=== PATIENT | female | born 1930 | race Caucasian/White ===

== ENCOUNTER 2016-12-01 10:09 | Emergency (ER) | payer MEDICARE, OTHER | END 2016-12-01 12:20 | disposition home or self-care (01) | DX: S00.03XA Contusion of scalp, initial encounter (principal); S93.601A Unspecified sprain of right foot, initial encounter; M54.2 Cervicalgia; Y93.G3 Activity, cooking and baking; W01.198A Fall on same level from slipping, tripping and stumbling with subsequent striking against other object, initial encounter; Y92.000 Kitchen of unspecified non-institutional (private) residence as the place of occurrence of the external cause; Z86.73 Personal history of transient ischemic attack (TIA), and cerebral infarction without residual deficits ==

== ENCOUNTER 2017-03-19 12:48 | Outpatient (CLI) | payer MEDICARE, OTHER | END 2017-03-20 12:49 | disposition critical access hospital (66) | LOC: EMS 12:48 | PROVIDERS: ATTEND Surgery | DX: S01.01XA Laceration without foreign body of scalp, initial encounter (principal); W01.198A Fall on same level from slipping, tripping and stumbling with subsequent striking against other object, initial encounter; Y92.9 Unspecified place or not applicable | CPT/HCPCS: A0425; A0429 ==

== ENCOUNTER 2017-03-19 13:12 | Emergency (ER) | payer MEDICARE, OTHER ==
[2017-03-19] MEDS ORDERED: LIDOCAINE MPF 1%-EPI 1:200000 30 ML VIAL ONE (13:25)
[2017-03-19] MEDS ORDERED: TETANUS/DIPHTHERIA/PERTUSSIS 0.5 ML SYRINGE IM ONE ×2 (13:37→14:26)
--- NOTE | 2017-03-19 13:40 | ED Physician Documentation ---
History of Present Illness - Stated complaint Stated Complaint: FALL/HEAD LAC - Chief complaint Chief Complaint: Trauma Hd/Nk - Additonal information Additional information: hx from pt 86 female per EMS lost balance and fell large R occipital scalp lac ith heavy bleeding no blood thinners no numbness or weakness otherwise well recently Review of Systems Constitutional: denies: Fever Cardiac: denies: Chest pain / pressure, Palpitations Respiratory: denies: Dyspnea GI: denies: Abdominal Pain, Nausea, Vomiting Skin: reports: Laceration (s) Musculoskeletal: reports: Neck pain Neurologic: reports: Headache, Head injury. denies: Focal weakness, Numbness Endocrine: denies: Easy bruising / bleeding Immunocompromised: denies: Immunocompromised PD PAST MEDICAL HISTORY - Past Medical History Cardiovascular: None Respiratory: Tuberculosis Neuro: CVA, TIA Endocrine/Autoimmune: HyPOthyroidism GI: Other : Incontinence HEENT: Other Psych: None Musculoskeletal: Osteoarthritis, Chronic back pain Derm: Other - Past Surgical History General: Appendectomy, Bowel surgery Ortho: Knee replacement HEENT: Cataracts, Tonsil/Adenoidectomy - Present Medications Home Medications: Ambulatory Orders Medication Instructions Recorded Confirmed Levothyroxine [Synthroid] 50 mcg PO QDAC 01/20/14 12/01/16 - Allergies Allergies/Adverse Reactions: Allergies Allergy/AdvReac Type Severity Reaction Status Date / Time Penicillins Allergy swelling Verified 12/01/16 10:21 wheat AdvReac Intermediate malaise, Verified 12/01/16 10:21 headache, dizziness phenyl derivatives Allergy Unknown Uncoded 12/01/16 10:21 - Social History Does the pt smoke?: No Smoking Status: Never smoker Does the pt drink ETOH?: Yes Does the pt have substance abuse?: No - Immunizations Immunizations are current?: Yes - POLST Patient has POLST: No PD ED PE NORMAL - Vitals Vital signs reviewed: Yes - General General: Alert and oriented X 3 - HEENT HEENT: PERRL, Other (2 in deep lac to the galea but not through with large hematoma that had to be evacuated in order to repair) - Neck Neck: No bony TTP (remained collared for imaging 2/2 mechanism) - Cardiac Cardiac: RRR - Respiratory Respiratory: No respiratory distress, Clear bilaterally - Derm Derm: Other (scalp lac) - Neuro Neuro: Alert and oriented X 3, No motor deficit, No sensory deficit Results - Vitals Vitals: Vital Signs - 24 hr 03/19/17 13:15 Temperature 37 C Heart Rate 63 Respiratory 18 Rate Blood Pressure 161/67 H O2 Saturation 100 Oxygen O2 Source [] Nasal cannula O2 Source [] Nasal cannula O2 Source Room air - Rads (name of study) CTH Radiology: See rad report (R parietal subgaleal hematoma) CTCS Radiology: See rad report (no fx, osteopenia, mild focal ant left apical airspace consolidation) Procedures - Laceration (location) scalp Length in cm: 6 Wound type: Linear Neurovascular status: Sensory intact, Motor intact Anesthesia: Lidocaine 1% with epi (10) Wound Preparation: Irrigated copiously NS (2 L), Wound explored, To the base. No: FB identified Skin layer closure: [place] (6) Other: Tetanus booster given Complexity: Simple, Other (after hemaotma removed able to close skin edges) PD MEDICAL DECISION MAKING - ED course ED course: daughter was concerned about episodes of pt "freezing up" wondering if maybe TIAs - ordered blood work etc in addiiton to CT for trauma to eval - but then got records from clinic and athis issue has already been evaluated and addressed - so cancelled abs as todays fall was mechanical by pt and EMS report also CTCS showed L apex abn but pt declines CXR stating she has old findings from prior TB and she is not sick with a cough today and does not want/need a CXR Departure - Departure Disposition: 01 Home, Self Care Clinical Impression: Injury of head and neck Qualifiers: Encounter type: initial encounter Qualified Code(s): S09.90XA - Unspecified injury of head, initial encounter; S19.9XXA - Unspecified injury of neck, initial encounter Scalp laceration Qualifiers: Encounter type: initial encounter Qualified Code(s): S01.01XA - Laceration without foreign body of scalp, initial encounter Condition: Good Instructions: ED Head Injury Closed, ED Laceration Scalp Stitch Or Stap Comments: Keep the pressure dressing on overnight Apply ice for 20 min every 4 hr for the next 24 hr May take tylenol for the pain After the dressing is removed tomorrow it is fine to shower Please apply antibiotic ointment to the laceration twice a day [place] come out in 14 days - your PMD can do that or you can come back to the ER Please return for any other concerns, falls, or concerns for infection - even though I irrigated the wound with 2 L of fluids there is always a chance of infection so if you notice excessive redness or swelling or drainage, please come back for a wound check And please follow up with your PMD to recheck your blood pressure - it was elevated today
--- NOTE | 2017-03-19 14:38 | CT Preliminary Report ---
Exam: CT Head W/O IMPRESSION: 1. Generalized age-related cortical atrophic changes without evidence of acute intracranial abnormali ty. 2. Right parietal scalp subgaleal hematoma. [facility] SITE ID: [id number]
--- NOTE | 2017-03-19 14:41 | CT Report ---
EXAM: CT HEAD EXAM DATE: 03/19/2017 02:28 PM. CLINICAL HISTORY: Head injury right occipital lac and hematoma. COMPARISON: 12/01/2016. TECHNIQUE: Multiaxial CT images were obtained from the foramen magnum to the vertex. IV contrast: Non e. Reformats: Coronal. In accordance with CT protocol optimization, one or more of the following dose reduction techniques w ere utilized for this exam: automated exposure control, adjustment of mA and/or KV based on patient s ize, or use of iterative reconstructive technique. FINDINGS: Parenchyma: No intraparenchymal hemorrhage. No evidence of mass, midline shift, or CT findings of acu te infarction. Grijalva-white differentiation is distinct. Extraaxial Spaces: Normal for age. No subdural or epidural collections identified. Ventricles: The ventricles and cortical sulci are enlarged, consistent with age-related tissue loss. Sinuses: Imaged paranasal sinuses, orbits, and mastoids show no significant abnormality. Bones: No evidence of fracture or calvarial defect. Focal 4.6 x 1 cm right parietal scalp subgaleal h ematoma with associated small laceration is evident. Other: Diffuse chronic microangiopathic white matter changes are evident. IMPRESSION: 1. Generalized age-related cortical atrophic changes without evidence of acute intracranial abnormali ty. 2. Right parietal scalp subgaleal hematoma. [facility] Referring Provider Line: [phone] SITE ID: [id number]
--- NOTE | 2017-03-19 14:42 | CT Preliminary Report ---
Exam: CT Cervical Spine W/O IMPRESSION: 1. Osteopenia without evidence for acute fracture or dislocation of the cervical spine. 2. Multilevel degenerative changes in the cervical spine as described above. 3. Mild focal anterior left apical airspace consolidation is evident that is of unclear etiology, pos sibly infection or inflammation. [facility] SITE ID: [id number]
--- NOTE | 2017-03-19 14:44 | CT Report ---
EXAM: CT CERVICAL SPINE WITHOUT CONTRAST DATE: 03/19/2017 02:27 PM HISTORY: Fall and neck pain COMPARISONS: 12/01/2016. TECHNIQUE: Thin-section axial images were acquired of the cervical spine without contrast. Post-proce ssing: Coronal and sagittal reformats. Other: None. In accordance with CT protocol optimization, one or more of the following dose reduction techniques w ere utilized for this exam: automated exposure control, adjustment of mA and/or KV based on patient s ize, or use of iterative reconstructive technique. FINDINGS: Alignment: Normal. No scoliosis or spondylolisthesis. Bones: Osteopenia is noted. No acute fracture lines are seen. No abnormal osseous lesions. Interspace Levels/Facets: C1-C2: Degenerative narrowing at the C1-C2 interspace. C2-C3: Unremarkable. C3-C4: Unremarkable. C4-C5: Moderate to severe disk height loss with disk osteophytes. Moderate to severe bilateral neurof oraminal stenosis secondary to facet and uncovertebral hypertrophy. C5-C6: Moderate to severe disk height loss. Moderate to severe bilateral neuroforaminal stenosis seco ndary to facet and uncovertebral hypertrophy. C6-C7: Moderate to severe disk height loss. Mild to moderate bilateral neuroforaminal stenosis second quique to facet and uncovertebral hypertrophy. C7-T1: Mild disk height loss. No significant neuroforaminal stenosis. Musculature: Normal. No fatty atrophy. Other: The paravertebral and prevertebral soft tissues are normal. Biapical lung scarring is noted. T iny focal left anterior apical consolidation.. IMPRESSION: 1. Osteopenia without evidence for acute fracture or dislocation of the cervical spine. 2. Multilevel degenerative changes in the cervical spine as described above. 3. Mild focal anterior left apical airspace consolidation is evident that is of unclear etiology, pos sibly infection or inflammation. [facility] Referring Provider Line: [phone] SITE ID: [id number]
[2017-03-19 15:28] VITALS: BP 158/87
== END 2017-03-19 15:28 | disposition home or self-care (01) ==
LOC: EDUNIT# → ED 13:12
DX: S01.01XA Laceration without foreign body of scalp, initial encounter (principal); S00.03XA Contusion of scalp, initial encounter; S09.90XA Unspecified injury of head, initial encounter; W01.0XXA Fall on same level from slipping, tripping and stumbling without subsequent striking against object, initial encounter; Z23 Encounter for immunization; R03.0 Elevated blood-pressure reading, without diagnosis of hypertension; E03.9 Hypothyroidism, unspecified; Z86.73 Personal history of transient ischemic attack (TIA), and cerebral infarction without residual deficits; Z86.11 Personal history of tuberculosis
CPT/HCPCS: 12032; 70450; 72125; 80048; 85025; 90471; 99283; 99284

== ENCOUNTER 2017-08-12 07:36 | Outpatient (CLI) | payer MEDICARE, OTHER ==
[2017-08-12 08:05] LABS: CREATININE 0.9 mg/dL (0.4-1.0)
[2017-08-12] MEDS ORDERED: IOPAMIDOL-300 100 ML VIAL IVP ONE (09:01)
[2017-08-12] MEDS ORDERED: IOPAMIDOL-300 100 ML VIAL ONE (09:05)
--- NOTE | 2017-08-12 13:06 | CT Report ---
CT CHEST WITH CONTRAST: 08/12/2017 CLINICAL INDICATION: Shortness of breath, cough. TECHNIQUE: Axial CT images of the chest were obtained with 80 mL Isovue-300 intravenously. In accordance with CT protocol optimization, one or more of the following dose reduction techniques w ere utilized for this exam: automated exposure control, adjustment of mA and/or KV based on patient size, or use of iterative reconstructive technique. COMPARISON: Previous CT of the abdomen of 09/07/2015. FINDINGS: The heart and great vessels demonstrate mild atherosclerotic calcification. No hilar or m ediastinal lymphadenopathy is present. The lungs demonstrate minimal dependent atelectasis. No pulm onary nodule or mass lesion is present. No focal infiltrate, effusion, or pneumothorax is seen. Beard ited evaluation of upper abdominal structures demonstrates the 9-cm hemangioma in the posterior right lobe of the liver. Osseous structures demonstrate degenerative changes. IMPRESSION: NO EVIDENT ETIOLOGY FOR PATIENT'S COUGH AND SHORTNESS OF BREATH. STABLE HEPATIC HEMANGI DOANLD. JOB #: [id number] EXT JOB #:[id number]
== END 2017-08-12 07:37 | disposition home or self-care (01) ==
LOC: LAB 07:36 → DI 07:37
PROVIDERS: ATTEND Nurse Practitioner Family
DX: R06.02 Shortness of breath (principal); R05 Cough; D18.03 Hemangioma of intra-abdominal structures
CPT/HCPCS: 36415; 71260; 82565; Q9967

== ENCOUNTER 2017-10-06 08:46 | Outpatient (CLI) | payer MEDICARE, OTHER ==
--- NOTE | 2017-10-07 11:33 | XRAY Report ---
DATE OF SERVICE: 10/06/2017 TWO VIEW CHEST: 10/06/2017. COMPARISON: Chest CT of 08/12/2017. INDICATION: Cough. TECHNIQUE: Two views of the chest. FINDINGS: Clear lungs. No pneumothorax or pleural effusion. Mediastinum unremarkable. IMPRESSION: NO EVIDENCE OF ACUTE THORACIC PROCESS. TD: 10/06/2017 11:43 [facility]
== END 2017-10-06 08:47 | disposition home or self-care (01) ==
LOC: DI.S 08:46
PROVIDERS: ATTEND Nurse Practitioner Family
DX: R05 Cough (principal); R06.02 Shortness of breath
CPT/HCPCS: 71046

== ENCOUNTER 2017-10-17 06:53 | Outpatient (CLI) | payer MEDICARE, OTHER | END 2017-10-17 06:54 | disposition critical access hospital (66) | LOC: EMS 06:53 | PROVIDERS: ATTEND Surgery | DX: M25.532 Pain in left wrist (principal); W18.30XA Fall on same level, unspecified, initial encounter; Y93.K9 Activity, other involving animal care; Y92.008 Other place in unspecified non-institutional (private) residence as the place of occurrence of the external cause | CPT/HCPCS: A0425; A0429 ==

== ENCOUNTER 2017-10-17 07:19 | Emergency (ER) | payer MEDICARE, OTHER ==
--- NOTE | 2017-10-17 07:35 | ED Physician Documentation ---
PD HPI UPPER EXT INJURY - Stated complaint Stated Complaint: GLF - Chief complaint Chief Complaint: General - History obtained from History obtained from: Patient, EMS - History of Present Illness Location: Left, Wrist Type of injury: Fall (she says she bent over to give her dog some food and she lost balance and fell backward, catching her fall with the left wrist. She had slipped getting out of bed and landed on her buttock yesterday with abrasion to gluteal area. Denies other falls nor feeling off balance per se.) Where injury occurred: Home Timing - onset: Today Timing - details: Abrupt onset, Still present Improved by: Rest Worsened by: Moving, Palpating Associated symptoms: Swelling. No: Weakness, Numbness Contributing factors: No: Anticoagulated, Prior ortho surgery Similar symptoms before: Has not had sx before Recently seen: Not recently seen Review of Systems Constitutional: denies: Fever, Chills Nose: denies: Rhinorrhea / runny nose, Congestion Throat: denies: Sore throat Cardiac: denies: Chest pain / pressure, Palpitations Respiratory: denies: Dyspnea, Cough GI: denies: Abdominal Pain, Nausea, Vomiting, Diarrhea : denies: Dysuria, Frequency Neurologic: denies: Focal weakness, Numbness, Syncope, Altered mental status, Headache, Head injury Endocrine: denies: Weight loss Immunocompromised: denies: Immunocompromised PD PAST MEDICAL HISTORY - Past Medical History Past Medical History: Yes Cardiovascular: None Respiratory: Tuberculosis Neuro: CVA, TIA Endocrine/Autoimmune: HyPOthyroidism GI: Other : Incontinence HEENT: Other Psych: None Musculoskeletal: Osteoarthritis, Chronic back pain Derm: Other - Past Surgical History Past Surgical History: Yes General: Appendectomy, Bowel surgery Ortho: Knee replacement HEENT: Cataracts, Tonsil/Adenoidectomy - Present Medications Home Medications: Ambulatory Orders Medication Instructions Recorded Confirmed Levothyroxine [Synthroid] 50 mcg PO QDAC 01/20/14 10/17/17 Antidepressant 10/17/17 - Allergies Allergies/Adverse Reactions: Allergies Allergy/AdvReac Type Severity Reaction Status Date / Time Penicillins Allergy swelling Verified 12/01/16 10:21 wheat AdvReac Intermediate malaise, Verified 12/01/16 10:21 headache, dizziness phenyl derivatives Allergy Unknown Uncoded 12/01/16 10:21 - Social History Does the pt smoke?: No Smoking Status: Never smoker Does the pt drink ETOH?: Yes Does the pt have substance abuse?: No - Immunizations Immunizations are current?: Yes - POLST Patient has POLST: No PD ED PE NORMAL - Vitals Vital signs reviewed: Yes - General General: Alert and oriented X 3, No acute distress, Well developed/nourished - HEENT HEENT: Atraumatic - Neck Neck: Supple, no meningeal sign, No adenopathy - Cardiac Cardiac: RRR, No murmur - Respiratory Respiratory: Clear bilaterally, Other (no chestwall tenderness) - Abdomen Abdomen: Soft, Non tender - Rectal Rectal: Deferred, Other (left gluteal area with several abrasions without bleeding. No redness/purulence noted. ) - Back Back: No spinal TTP - Derm Derm: Normal color, Warm and dry - Extremities Extremities: Other (left wrist with tenderness and swelling. No gross defromity. Good color and cap refill in fingers. ) - Neuro Neuro: Alert and oriented X 3, No motor deficit, No sensory deficit, Normal speech Results - Vitals Vitals: Vital Signs - 24 hr 10/17/17 10/17/17 07:20 09:42 Temperature 36.1 C L 36.3 C L Heart Rate 72 73 Respiratory 17 18 Rate Blood Pressure 144/71 H 138/68 H O2 Saturation 100 100 Oxygen O2 Source [With Activity] Nasal cannula O2 Source [Without Activity] Nasal cannula O2 Source Room air - Rads (name of study) left wrist Radiology: Prelim report reviewed, EMP read contemporaneously (distal radius fracture nondisplaced. Ulnar styloid as well. ) Procedures - Splint (location) left wrist Splint applied by: Tech Type of splint: Fiberglass, Sugar tong Other: Patient tolerated well, No complications, Neurovascular intact, Good alignment, Sling provided PD MEDICAL DECISION MAKING - ED course Complexity details: reviewed results, considered differential, d/w patient Departure - Departure Disposition: 01 Home, Self Care Clinical Impression: Fall from slip, trip, or stumble Qualifiers: Encounter type: initial encounter Qualified Code(s): W01.0XXA - Fall on same level from slipping, tripping and stumbling without subsequent striking against object, initial encounter Abrasion of buttock Qualifiers: Encounter type: initial encounter Qualified Code(s): S30.810A - Abrasion of lower back and pelvis, initial encounter Wrist fracture, left Qualifiers: Encounter type: initial encounter Fracture type: closed Qualified Code(s): S62.102A - Fracture of unspecified carpal bone, left wrist, initial encounter for closed fracture Condition: Stable Record reviewed to determine appropriate education?: Yes Instructions: ED Fx Colles Wrist No Redu Requ Follow-Up: Steve Hanson MD [Provider Admit Priv/Credential] - Mignon Clay ARNP [Primary Care Provider] - Comments: Keep the splint on and keep it clean and dry. Call the orthopedic office Wednesday or Wednesday to set up an appointment for later in the week for changing the splint to a cast and recheck the fracture. Use Tylenol 650 mg 3 times a day for the next week for the pain. Keep the arm elevated to reduce swelling. Use the sling as needed for comfort. For the abrasions on the buttock, just use some topical antibiotic ointment or some ointment once or twice a day and they should heal up okay. Discharge Date/Time: 10/17/17 09:42
--- NOTE | 2017-10-17 08:08 | XRAY Report ---
EXAM: LEFT WRIST RADIOGRAPHY EXAM DATE: 10/17/2017 07:55 AM. CLINICAL HISTORY: Fell this morning; bent over and lost balance. COMPARISON: None. TECHNIQUE: 3 views. FINDINGS: Bones: There is diffuse moderate to severe osteopenic appearance. Mild comminuted intra-articular fra cture with minimal displacement in the distal radius and transverse fracture in the base of the ulnar styloid process visualized. Joints: There is moderate diminishment of joint space in the radiocarpal joint, radial side intercarp al joints and first carpometacarpal joint. No subluxations. Soft Tissues: No radiopaque foreign body. IMPRESSION: 1. Mild comminuted intra-articular fracture with minimal displacement in the distal radius and transv erse fracture in the base of the ulnar styloid process. 2. Moderate osteoarthritis of the left wrist; negative for dislocation or subluxation. [facility] Referring Provider Line: [phone] SITE ID: [id number]
--- NOTE | 2017-10-17 08:08 | XRAY Preliminary Report ---
Exam: XR WRIST 4 VIEW LT IMPRESSION: 1. Mild comminuted intra-articular fracture with minimal displacement in the distal radius and transv erse fracture in the base of the ulnar styloid process. 2. Moderate osteoarthritis of the left wrist; negative for dislocation or subluxation. [facility] SITE ID: [id number]
[2017-10-17 09:44] VITALS: BP 138/68
== END 2017-10-17 09:42 | disposition home or self-care (01) ==
LOC: EDUNIT# → ED 07:19
DX: S52.572A Other intraarticular fracture of lower end of left radius, initial encounter for closed fracture (principal); S52.612A Displaced fracture of left ulna styloid process, initial encounter for closed fracture; W01.0XXA Fall on same level from slipping, tripping and stumbling without subsequent striking against object, initial encounter; Y92.019 Unspecified place in single-family (private) house as the place of occurrence of the external cause; S30.810A Abrasion of lower back and pelvis, initial encounter; W06.XXXA Fall from bed, initial encounter; Y92.013 Bedroom of single-family (private) house as the place of occurrence of the external cause; E03.9 Hypothyroidism, unspecified; M19.90 Unspecified osteoarthritis, unspecified site
CPT/HCPCS: 29105; 99283; 99284

== ENCOUNTER 2017-11-13 14:58 | Emergency (ER) | payer MEDICARE, OTHER ==
[2017-11-13 15:11] VITALS: BP 147/82
--- NOTE | 2017-11-13 16:00 | ED Physician Documentation ---
History of Present Illness - Stated complaint Stated Complaint: L THUMB SWELLING - Chief complaint Chief Complaint: Ext Problem - History obtained from History obtained from: Patient - History of Present Illness Timing: Today Pain level max: 4 Pain level now: 3 Improved by: nothing Worsened by: nothing - Additonal information Additional information: Patient is an 79-year-old female who presents to the emergency department complaint of redness and swelling to the left thumb after a distal radius and ulna fracture approximately 4 weeks ago. Review of Systems Constitutional: denies: Fever, Chills Respiratory: denies: Cough GI: denies: Nausea, Vomiting, Diarrhea Skin: denies: Rash Musculoskeletal: denies: Neck pain, Back pain Neurologic: denies: Headache PD PAST MEDICAL HISTORY - Past Medical History Cardiovascular: None Respiratory: Tuberculosis Neuro: CVA, TIA Endocrine/Autoimmune: HyPOthyroidism GI: Other : Incontinence HEENT: Other Psych: None Musculoskeletal: Osteoarthritis, Chronic back pain Derm: Other - Past Surgical History Past Surgical History: Yes General: Appendectomy, Bowel surgery Ortho: Knee replacement HEENT: Cataracts, Tonsil/Adenoidectomy - Present Medications Home Medications: Ambulatory Orders Medication Instructions Recorded Confirmed Levothyroxine [Synthroid] 50 mcg PO QDAC 01/20/14 10/17/17 Antidepressant 10/17/17 - Allergies Allergies/Adverse Reactions: Allergies Allergy/AdvReac Type Severity Reaction Status Date / Time Penicillins Allergy swelling Verified 12/01/16 10:21 wheat AdvReac Intermediate malaise, Verified 12/01/16 10:21 headache, dizziness phenyl derivatives Allergy Unknown Uncoded 12/01/16 10:21 - Social History Does the pt smoke?: No Smoking Status: Never smoker Does the pt drink ETOH?: Yes Does the pt have substance abuse?: No - Immunizations Immunizations are current?: Yes - POLST Patient has POLST: No PD ED PE NORMAL - Vitals Vital signs reviewed: Yes - General General: Alert and oriented X 3, No acute distress - Derm Derm: Warm and dry - Extremities Extremities: Other (L thumb is swollen, normal color. cast in place) - Neuro Neuro: Alert and oriented X 3 - Psych Psych: Normal mood, Normal affect Results - Vitals Vitals: Vital Signs - 24 hr 11/13/17 11/13/17 15:07 16:55 Temperature 36.1 C L Heart Rate 76 76 Respiratory 18 16 Rate Blood Pressure 147/82 H O2 Saturation 96 Oxygen O2 Source [With Activity] Nasal cannula O2 Source [Without Activity] Nasal cannula O2 Source Room air Procedures - General procedure General procedure: cast removed with cast saw. bivalved and removed. tolerated well. no complications. - Splint (location) L forearm Splint applied by: Physician, Nurse Type of splint: Fiberglass, Volar cock up Other: Patient tolerated well, No complications, Neurovascular intact PD MEDICAL DECISION MAKING - ED course Complexity details: reviewed old records, re-evaluated patient, considered differential, d/w patient ED course: Patient is an 87-year-old female who presents to the emergency department with what appears to be swelling from a cast that had become too tight. The cast was bivalved and removed. Tolerated well. Swelling decreased and feels much better. No evidence of cellulitis, infection or septic joint. Placed back in a volar splint and will follow up with orthopedics this week as scheduled. Patient counseled regarding signs and symptoms for which I believe and urgent re -evaluation would be necessary. Patient with good understanding of and agreement to plan and is comfortable going home at this time This document was made in part using voice recognition software. While efforts are made to proofread this document, sound alike and grammatical errors may occur. Departure - Departure Disposition: 01 Home, Self Care Clinical Impression: Distal radius fracture, left Qualifiers: Encounter type: subsequent encounter Fracture type: closed Fracture morphology : other intra-articular Fracture healing: with routine healing Qualified Code(s) : S52.572D - Other intraarticular fracture of lower end of left radius, subsequent encounter for closed fracture with routine healing Condition: Good Instructions: ED Fx Upper Ext Follow-Up: Steve Hanson MD [Provider Admit Priv/Credential] - Within 3 Days Comments: Your cast appeared to be too tight tonight and we replaced it with a splint. Follow up with Dr. Hanson for further evaluation on Wednesday or wednesday. Return sooner if you worsen. Discharge Date/Time: 11/13/17 16:56
== END 2017-11-13 16:56 | disposition home or self-care (01) ==
LOC: ED 14:58
DX: S52.572D Other intraarticular fracture of lower end of left radius, subsequent encounter for closed fracture with routine healing (principal)
CPT/HCPCS: 29125; 99282

== ENCOUNTER 2018-05-31 10:31 | Outpatient (CLI) | payer MEDICARE, OTHER ==
--- NOTE | 2018-05-31 11:25 | XRAY Report ---
Reason: RIGHT SHOULDER DECREASED RANGE OF MOTION Procedure Date: 05/31/2018 Accession Number: [id number] / [id number] Procedure: XR - Shoulder 3 View RT CPT Code: FULL RESULT: EXAM: RIGHT SHOULDER RADIOGRAPHY EXAM DATE: 05/31/2018 10:55 AM. CLINICAL HISTORY: Fall 2 days ago. Right shoulder decreased range of motion. COMPARISON: None. TECHNIQUE: 3 views. FINDINGS: Bones: No fractures or bone lesions. Bones appear osteopenic. Joints: Mild acromioclavicular and glenohumeral joint DJD. Soft Tissues: Unremarkable. IMPRESSION: 1. No acute osseous abnormality. 2. Mild DJD. Osteopenia. [facility]
== END 2018-05-31 10:32 | disposition home or self-care (01) ==
LOC: DI 10:31
PROVIDERS: ATTEND Nurse Practitioner Family
DX: M19.011 Primary osteoarthritis, right shoulder (principal); M85.811 Other specified disorders of bone density and structure, right shoulder

== ENCOUNTER 2018-06-23 11:37 | Outpatient (CLI) | payer MEDICARE, OTHER ==
[2018-06-23 12:41] LABS: BASOPHILS % (AUTO) 0.5 %; EOSINOPHILS % (AUTO) 0.3 %; LYMPHOCYTES # (AUTO) 2.2 10^3/uL (1.5-3.5); LYMPHOCYTES % (AUTO) 28.2 %; MEAN CORPUSCULAR HEMOGLOBIN 31.6 pg (27.0-31.0); MEAN CORPUSCULAR HGB CONC 34.1 g/dL (32.0-36.0); MEAN CORPUSCULAR VOLUME 92.9 fL (81.0-99.0); MEAN PLATELET VOLUME 8.6 fL (7.9-10.8); MONOCYTES # (AUTO) 1.4 10^3/uL (0.0-1.0); NEUTROPHILS # (AUTO) 4.3 10^3/uL (1.5-6.6); PLT - PLATELET COUNT 169 10^3/uL (130-450); RED BLOOD COUNT 4.43 10^6/uL (4.20-5.40); RED CELL DISTRIBUTION WIDTH 13.5 % (12.0-15.0)
[2018-06-23 12:52] LABS: ALBUMIN 4.6 g/dL (3.2-5.5); BILIRUBIN,TOTAL 0.9 mg/dL (0.2-1.0); CALCIUM 9.4 mg/dL (8.5-10.3); CREATININE 0.9 mg/dL (0.4-1.0); TOTAL PROTEIN 6.9 g/dL (6.7-8.2)
[2018-06-23 12:53] LABS: HB2 TOTAL 15.3 g/dL; HEMOGLOBIN A1C 0.54 g/dL; HEMOGLOBIN A1C % 5.4 % (4.6-6.2)
[2018-06-23 15:40] LABS: THYROID STIMULATING HORMONE 2.03 uIU/mL (0.34-5.60)
[2018-06-23 15:42] LABS: FREE T4 (FREE THYROXINE) 0.96 ng/dL (0.58-1.64)
[2018-06-24 13:07] LABS: HEPATITIS C ANTIBODY NON-REACTIVE (NON-REACTIVE)
[2018-06-24 14:22] LABS: HIV AG/AB 4TH GEN NON-REACTIVE (NON-REACTIVE)
== END 2018-06-23 11:38 | disposition home or self-care (01) ==
LOC: LAB 11:37
PROVIDERS: ATTEND Nurse Practitioner Family
DX: R05 Cough (principal); R35.1 Nocturia; R61 Generalized hyperhidrosis; Z86.11 Personal history of tuberculosis
CPT/HCPCS: 36415; 80053; 81599; 83036; 84439; 84443; 85025; 86803; G0475; 81001; 86592; 87389

== ENCOUNTER 2018-06-24 11:57 | Outpatient (CLI) | payer MEDICARE, OTHER ==
--- NOTE | 2018-06-24 13:58 | XRAY Report ---
Reason: COUGH Procedure Date: 06/24/2018 Accession Number: [id number] / [id number] Procedure: XR - Chest 2 View X-Ray CPT Code: 21365 FULL RESULT: EXAM: CHEST RADIOGRAPHY EXAM DATE: 06/24/2018 12:24 PM. CLINICAL HISTORY: COUGH. COMPARISON: 07/08/2015. TECHNIQUE: 2 views. FINDINGS: Lungs/Pleura: Mildly hyperexpanded, but clear. No effusion or pneumothorax. Mediastinum: Heart and mediastinal contours are unremarkable. Upper lobe vessels not distended. Other: Mild scoliosis with degenerative changes. IMPRESSION: No acute disease. [facility]
== END 2018-06-24 11:58 | disposition home or self-care (01) ==
LOC: DI 11:57
PROVIDERS: ATTEND Nurse Practitioner Family
DX: R05 Cough (principal)
CPT/HCPCS: 71046

== ENCOUNTER 2018-07-12 15:59 | Outpatient (CLI) | payer MEDICARE, OTHER | END 2018-07-12 16:00 | disposition critical access hospital (66) | LOC: EMS 15:59 | PROVIDERS: ATTEND Surgery | DX: S09.90XA Unspecified injury of head, initial encounter (principal); R07.81 Pleurodynia; W01.190A Fall on same level from slipping, tripping and stumbling with subsequent striking against furniture, initial encounter; Y92.009 Unspecified place in unspecified non-institutional (private) residence as the place of occurrence of the external cause | CPT/HCPCS: A0425; A0429 ==

== ENCOUNTER 2018-07-12 16:24 | Emergency (ER) | payer MEDICARE, OTHER ==
[2018-07-12] MEDS ORDERED: HYDROcod/ACETAM 5/325 MG TABLET PO STA (16:30)
--- NOTE | 2018-07-12 16:32 | ED Physician Documentation ---
PD HPI Fall - Stated complaint Stated Complaint: GLF - History obtained from History obtained from: Patient - History of Present Illness Mechanism of injury: Tripped (On a carpet today. Hit back of head and hurt left posterior chest wall. No LOC. Hurts a lot to breathe.) Fall distance: Standing position Where injury occurred: Home Timing - onset: Today Review of Systems Constitutional: reports: Reviewed and negative Cardiac: reports: Reviewed and negative Respiratory: reports: Reviewed and negative PD PAST MEDICAL HISTORY - Past Medical History Cardiovascular: None Respiratory: Tuberculosis Endocrine/Autoimmune: HyPOthyroidism GI: Other : Incontinence HEENT: Other Psych: None Musculoskeletal: Osteoarthritis, Chronic back pain Derm: Other - Past Surgical History Past Surgical History: Yes General: Appendectomy, Bowel surgery Ortho: Knee replacement HEENT: Cataracts, Tonsil/Adenoidectomy - Present Medications Home Medications: Ambulatory Orders Medication Instructions Recorded Confirmed Levothyroxine [Synthroid] 50 mcg PO QDAC 01/20/14 10/17/17 Antidepressant 10/17/17 - Allergies Allergies/Adverse Reactions: Allergies Allergy/AdvReac Type Severity Reaction Status Date / Time Penicillins Allergy Intermediate swelling Verified 07/12/18 16:53 wheat AdvReac Intermediate malaise, Verified 07/12/18 16:54 headache, dizziness phenyl derivatives Allergy Unknown Uncoded 07/12/18 16:54 - Social History Does the pt smoke?: No Smoking Status: Never smoker Does the pt drink ETOH?: Yes Does the pt have substance abuse?: No - Immunizations Immunizations are current?: Yes - POLST Patient has POLST: No PD ED PE NORMAL - Vitals Vital signs reviewed: Yes - General General: Alert and oriented X 3, No acute distress - HEENT HEENT: PERRL, EOMI, Other (Small hematoma left occiput) - Neck Neck: Supple, no meningeal sign, No bony TTP - Cardiac Cardiac: RRR, No murmur - Respiratory Respiratory: No respiratory distress, Clear bilaterally, Other (TTP about Rib 8- 10 post ax line on left.) - Abdomen Abdomen: Non tender - Back Back: No spinal TTP - Derm Derm: Normal color, Warm and dry - Extremities Extremities: No edema, No calf tenderness / cord - Neuro Neuro: Alert and oriented X 3, vocational rehab consultant 2-12 intact Eye Opening: Spontaneous Motor: Obeys Commands Verbal: Oriented GCS Score: 15 Results - Vitals Vitals: Oxygen O2 Source [With Activity] Nasal cannula O2 Source [Without Activity] Nasal cannula O2 Source Room air - Rads (name of study) Ct CHest Radiology: EMP read contemporaneously (Acute left sixth through 10th rib fractures with numbers 6 8 and 9 in multiple locations representing a flail chest.) Ct Head and Cspine Radiology: EMP read contemporaneously (NAD) PD MEDICAL DECISION MAKING - ED course ED course: 87YO WOMAN WITH FALL BACKWARD, HITTING LEFT POSTERIOR CHEST WALL ON TABLE. fOUND TO HAVE 6 POSTERIOR RIB FRXS AND FLAIR CHEST. Given multiple rib fractures, advanced age and flail chest decision to send her to [facility] was made and she was accepted by Dr. Valentina Dalton at 6:55 PM and cobras were completed. With the patient's permission I did speak with her daughter in [place], Albina Farias, her phone is [phone]. Dr. Dalton did ask me to perform an abdominal CT to rule out intra-abdominal injury, this was done, she is a stable hepatic hemangioma, no acute findings. - Sepsis Event Vital Signs: Oxygen O2 Source [With Activity] Nasal cannula O2 Source [Without Activity] Nasal cannula O2 Source Room air Departure - Departure Disposition: 02 Transfer Acute Care Hosp Clinical Impression: Flail chest Condition: Serious Discharge Date/Time: 07/12/18 19:57
--- NOTE | 2018-07-12 17:29 | CT Report ---
Reason: fall, head and L post chest inj Procedure Date: 07/12/2018 Accession Number: [id number] / [id number] Procedure: CT - Head W/O CPT Code: FULL RESULT: EXAM: CT HEAD EXAM DATE: 07/12/2018 05:12 PM. CLINICAL HISTORY: Fall, head and L post chest inj. COMPARISON: CERVICAL SPINE W/O 03/19/2017 2:13 PM HEAD W/O 12/01/2016 11:04 AM. TECHNIQUE: Multiaxial CT images were obtained from the foramen magnum to the vertex. Reformats: Sagittal and coronal. IV contrast: None. In accordance with CT protocol optimization, one or more of the following dose reduction techniques were utilized for this exam: automated exposure control, adjustment of mA and/or KV based on patient size, or use of iterative reconstructive technique. FINDINGS: Parenchyma: No acute intraparenchymal hemorrhage. No evidence of mass or midline shift. Grijalva-white differentiation is distinct. Nonspecific hypodense changes to the periventricular white matter, which can be seen with chronic small vessel ischemic disease. Redemonstrated nonspecific mild hyperdense changes to the medial thalami bilaterally. Extraaxial Spaces: No subdural or epidural collections identified. Ventricles: Normal in size and position. Sinuses and Orbits: Imaged paranasal sinuses, orbits, and mastoids show no significant abnormality. Bones: No evidence of fracture or calvarial defect. Other: Small focus of soft tissue swelling overlying the left occipital bone. IMPRESSION: No acute intracranial findings. An acute infarct may not be visible by CT. Follow-up examinations recommended as clinically indicated. RADIA
--- NOTE | 2018-07-12 17:34 | CT Report ---
Reason: fall, head and L post chest inj Procedure Date: 07/12/2018 Accession Number: [id number] / [id number] Procedure: CT - Cervical Spine W/O CPT Code: FULL RESULT: EXAM: CT CERVICAL SPINE WITHOUT CONTRAST DATE: 07/12/2018 05:12 PM. HISTORY: Fall, head and L post chest inj. COMPARISONS: CERVICAL SPINE W/O 03/19/2017 2:13 PM. TECHNIQUE: Thin-section axial images were acquired of the cervical spine without contrast. Post-processing: Coronal and sagittal reformats. Other: None. In accordance with CT protocol optimization, one or more of the following dose reduction techniques were utilized for this exam: automated exposure control, adjustment of mA and/or KV based on patient size, or use of iterative reconstructive technique. FINDINGS: Alignment: No scoliosis or spondylolisthesis. Bones/discs: No acute fracture, subluxation, or compression deformity. Diffuse osteopenia. Redemonstration of moderate to severe multilevel degenerative joint and disk disease, which is essentially unchanged from the prior CT from March 2017. Musculature: Unremarkable. Other: Trace fluid in the left mastoid air cells, nonspecific. The paravertebral and prevertebral soft tissues are unremarkable. IMPRESSION: Osteopenia. No acute fracture, subluxation, or compression deformity visualized. RADIA
--- NOTE | 2018-07-12 17:42 | CT Report ---
Reason: fall, head and L post chest inj Procedure Date: 07/12/2018 Accession Number: [id number] / [id number] Procedure: CT - Chest W/O CPT Code: FULL RESULT: EXAM: CT CHEST EXAM DATE: 07/12/2018 05:12 PM. CLINICAL HISTORY: Fall, head and L post chest inj. COMPARISONS: CHEST W/ 08/12/2017 8:47 AM. TECHNIQUE: Routine helical CT imaging was performed through the chest. IV contrast: None. Reconstructions: Coronal and sagittal. In accordance with CT protocol optimization, one or more of the following dose reduction techniques were utilized for this exam: automated exposure control, adjustment of mA and/or KV based on patient size, or use of iterative reconstructive technique. FINDINGS: Lungs/Pleura: No consolidation or pneumothorax. Small left pleural effusion. Mild patchy atelectasis in the left lung base. Redemonstrated nodular scarring in the lung apices without significant change from the prior exam. Mediastinum: Heart size is normal. No pericardial effusion. The thoracic aorta is normal in course and caliber. Calcified plaque scattered throughout the thoracic aorta and coronary arteries. Bones: There are acute fractures of the left 6th through 11th ribs.. The fractures of ribs 6, 8, and 9 are fractured in multiple locations. The sixth, seventh, eighth, and ninth ribs are minimally displaced. There are small locules of gas adjacent to several of these fractures. Visualized Abdomen: Small hiatal hernia. Redemonstrated hemangioma in the posterior right hepatic lobe, which appears unchanged in size from the prior exam. Other: None. IMPRESSION: Multiple acute left-sided rib fractures as described above. No pneumothorax. Small left pleural effusion and mild patchy atelectasis in the left lung base. RADIA
[2018-07-12] MEDS ORDERED: BENZOCAINE/MENTHOL LOZENGE MM STA (17:51)
[2018-07-12] MEDS ORDERED: MORPHINE 2 MG/ML CARPUJECT IVP STA (17:51)
[2018-07-12 18:16] LABS: BASOPHILS # (AUTO) 0.1 10^3/uL (0.0-0.1); BASOPHILS % (AUTO) 0.8 %; EOSINOPHILS % (AUTO) 0.3 %; HGB - HEMOGLOBIN 13.8 g/dL (12.0-16.0); LYMPHOCYTES # (AUTO) 1.5 10^3/uL (1.5-3.5); LYMPHOCYTES % (AUTO) 16.5 %; MEAN CORPUSCULAR HGB CONC 34.3 g/dL (32.0-36.0); MEAN CORPUSCULAR VOLUME 93.2 fL (81.0-99.0); MEAN PLATELET VOLUME 8.2 fL (7.9-10.8); MONOCYTES # (AUTO) 1.5 10^3/uL (0.0-1.0); MONOCYTES % (AUTO) 16.5 %; NEUTROPHILS % (AUTO) 65.9 %; PLT - PLATELET COUNT 176 10^3/uL (130-450); RED BLOOD COUNT 4.31 10^6/uL (4.20-5.40); RED CELL DISTRIBUTION WIDTH 13.6 % (12.0-15.0); WHITE BLOOD COUNT 9.2 x10^3/uL (4.8-10.8)
[2018-07-12] MEDS ORDERED: ONDANSETRON 4 MG/2 ML VIAL IVP STA (18:21)
[2018-07-12 18:27] LABS: ALBUMIN 4.5 g/dL (3.2-5.5); ALBUMIN/GLOBULIN RATIO 1.9 (1.0-2.2); BILIRUBIN,TOTAL 0.8 mg/dL (0.2-1.0); CALCIUM 9.1 mg/dL (8.5-10.3); CREATININE 0.7 mg/dL (0.4-1.0); TOTAL PROTEIN 6.9 g/dL (6.7-8.2)
[2018-07-12 18:31] LABS: PT - PROTHROMBIN TIME 11.5 secs (9.9-12.6)
[2018-07-12] MEDS ORDERED: IOPAMIDOL-300 100 ML VIAL ONE (19:14)
[2018-07-12 19:34] VITALS: BP 174/67
[2018-07-12] MEDS ORDERED: IOPAMIDOL-300 100 ML VIAL IVP ONE (20:04)
--- NOTE | 2018-07-12 20:14 | CT Report ---
Reason: IV only, chest trauma Procedure Date: 07/12/2018 Accession Number: [id number] / [id number] Procedure: CT - Abdomen/Pelvis W/ CPT Code: FULL RESULT: EXAM: CT ABDOMEN AND PELVIS EXAM DATE: 07/12/2018 07:46 PM. CLINICAL HISTORY: IV only, chest trauma. COMPARISONS: 09/07/2015. TECHNIQUE: Routine helical CT imaging was performed through the abdomen and pelvis. IV contrast: 100 cc Isovue-300. Enteric contrast: No. Reconstructions: Coronal and sagittal. In accordance with CT protocol optimization, one or more of the following dose reduction techniques were utilized for this exam: automated exposure control, adjustment of mA and/or KV based on patient size, or use of iterative reconstructive technique. FINDINGS: Lung Bases: Atelectasis in left posterior sulcus. Trace left pleural effusion. Otherwise clear. No pneumothorax. Liver: Large hemangioma similar to previous study. Otherwise unremarkable. Gallbladder/Bile Ducts: Unremarkable. Spleen: Normal. Pancreas: Normal. Adrenal Glands: Normal. Kidneys: Normal. No masses or hydronephrosis. Peritoneal Cavity/Bowel: Normal. No free fluid, free air or adenopathy. No masses or acute inflammatory process. Unremarkable region of the appendix. Pelvic Organs: Decompressed urinary bladder with Flores catheter in place. Otherwise unremarkable. Vasculature: No aneurysms or other significant abnormality. Bones: Fractures of posterior left seventh, eighth, ninth, and 10th ribs. Previous internal fixation of right femoral neck. Degenerative changes. Other: None. IMPRESSION: 1. Multiple left rib fractures. 2. Left basilar atelectasis with trace effusion. 3. Large hepatic hemangioma and other chronic or incidental findings. RADIA
== END 2018-07-12 19:57 | disposition short-term general hospital (02) ==
LOC: EDUNIT# → ED 16:24
DX: S22.5XXA Flail chest, initial encounter for closed fracture (principal); S00.83XA Contusion of other part of head, initial encounter; J90 Pleural effusion, not elsewhere classified; W01.190A Fall on same level from slipping, tripping and stumbling with subsequent striking against furniture, initial encounter; D18.09 Hemangioma of other sites
CPT/HCPCS: 36415; 51702; 70450; 71250; 72125; 74177; 80053; 83690; 85025; 85610; 96374; 99284; A9270; Q9967

== ENCOUNTER 2018-07-12 19:58 | Outpatient (CLI) | payer MEDICARE, OTHER | END 2018-07-12 19:59 | disposition short-term general hospital (02) | LOC: EMS 19:58 | PROVIDERS: ATTEND Surgery | DX: S22.5XXA Flail chest, initial encounter for closed fracture (principal); W01.0XXA Fall on same level from slipping, tripping and stumbling without subsequent striking against object, initial encounter; Y93.01 Activity, walking, marching and hiking | CPT/HCPCS: A0425; A0426 ==

== ENCOUNTER 2018-08-12 15:35 | Outpatient (CLI) | payer MEDICARE, OTHER ==
--- NOTE | 2018-08-12 16:32 | XRAY Report ---
Reason: OTHER ABNORMALITIES OF BREATHING Procedure Date: 08/12/2018 Accession Number: [id number] / [id number] Procedure: XR - Chest 2 View X-Ray CPT Code: 33818 FULL RESULT: EXAM: CHEST RADIOGRAPHY EXAM DATE: 08/12/2018 04:03 PM. CLINICAL HISTORY: OTHER ABNORMALITIES OF BREATHING. COMPARISON: CHEST 2 VIEW 06/24/2018 12:37 PM. TECHNIQUE: 2 views. FINDINGS: Lungs/Pleura: There is a moderate to large left-sided pleural effusion and/or hemothorax obscuring the left lower lung. There is no mediastinal shift. Aerated left upper lung is clear. Right lung is clear. No extra-ventilatory air. Mediastinum: Heart and mediastinal contours are unremarkable. Other: Mildly displaced posterior lateral left rib fractures are noted involving at least ribs 6 through 9. By discussion with PCP, these are known findings from trauma. IMPRESSION: Moderate to large left-sided pleural effusion as described. No pneumothorax. Multiple mildly displaced rib fractures from prior trauma. RADIA The above findings were discussed with Zeyad Ayoub by Dr. Mau Madsen at 16:23 hrs on 08/12/18.
== END 2018-08-12 15:36 | disposition home or self-care (01) ==
LOC: DI 15:35
PROVIDERS: ATTEND Family Medicine
DX: S22.42XD Multiple fractures of ribs, left side, subsequent encounter for fracture with routine healing (principal); J90 Pleural effusion, not elsewhere classified
CPT/HCPCS: 71046

== ENCOUNTER 2018-08-14 16:22 | Outpatient (CLI) | payer MEDICARE, OTHER | END 2018-08-14 16:23 | disposition critical access hospital (66) | LOC: EMS 16:22 | PROVIDERS: ATTEND Surgery | DX: R06.02 Shortness of breath (principal); M54.9 Dorsalgia, unspecified | CPT/HCPCS: A0425; A0427 ==

== ENCOUNTER 2018-08-14 16:28 | Inpatient (IN) | payer MEDICARE, OTHER ==
--- NOTE | 2018-08-14 17:09 | ED Physician Documentation ---
PD HPI TRUNK INJURY - Stated complaint Stated Complaint: CP - Chief complaint Chief Complaint: Resp - History obtained from History obtained from: Patient, Family - History of Present Illness Location: Left chest (She has been having pain in her chest due to prior rib fractures over a month ago. She was in [facility] due to the multiple rib fractures and then was out to [facility] for rehab from that. She has been there for a month or so. She has had treatment for the pain of the ribs and that has been improving. She has had a left pleural effusion that has slightly increased in size over the week or 2. She was seen by Dr. Ayoub at [facility] and has scheduled a thoracentesis to help with her symptoms of dyspnea and pain on the left side. It scheduled for this coming week. However she has had increased dyspnea and some pain into her back the last day or 2. She is referred to the ER for further evaluation. She has not had fever. She has had a little bit of a cough. She has not had any leg swelling.), Left back. No: Upper abdomen Type of injury: Fall (initial injury was from fall, but no new injury.) Timing - onset: How many days ago (has had increased dyspnea as well as new pain in left back the past 2-3 days.) Timing - duration: Days Timing - details: Gradual onset, Still present Quality: Pain, Aching Improved by: No: Rest Worsened by: Moving, Other (deep breathing). No: Palpating Associated symtptoms: Weakness. No: Numbness, Tingling, Feel faint Contributing factors: No: Anticoagulated Recently seen: Emergency Dept, Admitted Review of Systems Constitutional: reports: Fatigue. denies: Fever, Chills, Myalgias Nose: denies: Rhinorrhea / runny nose, Congestion Throat: denies: Sore throat Cardiac: reports: Chest pain / pressure (due to rib fractures, slowly improving over the past month) Respiratory: reports: Dyspnea, Cough, Wheezing (mild intermittently and uses MDI/Nebulizer regularly) GI: denies: Abdominal Pain, Nausea, Vomiting, Diarrhea : denies: Dysuria, Frequency Skin: denies: Rash, Lesions Neurologic: reports: Generalized weakness. denies: Focal weakness, Numbness PD PAST MEDICAL HISTORY - Past Medical History Cardiovascular: Congestive heart failure Respiratory: Asthma, Tuberculosis Endocrine/Autoimmune: HyPOthyroidism GI: Other : Incontinence HEENT: Other Psych: None Musculoskeletal: Osteoarthritis, Chronic back pain Derm: Other - Past Surgical History Past Surgical History: Yes General: Appendectomy, Bowel surgery Ortho: Knee replacement HEENT: Cataracts, Tonsil/Adenoidectomy - Present Medications Home Medications: Ambulatory Orders Medication Instructions Recorded Confirmed Levothyroxine [Synthroid] 50 mcg PO QDAC 01/20/14 10/17/17 Antidepressant 10/17/17 Acetaminophen [Tylenol Extra 1,000 mg PO Q8HR PRN 08/14/18 08/14/18 Strength] Bisacodyl Supp [Dulcolax Supp] 10 mg ID DAILY PRN 08/14/18 08/14/18 Cetirizine [ZyrTEC] 5 mg PO DAILY PRN 08/14/18 08/14/18 Cholecalciferol (Vitamin D3) 1,000 unit PO DAILY 08/14/18 08/14/18 [Vitajoy Daily D] Ibuprofen [Ibu] 600 mg PO Q6HR PRN 08/14/18 08/14/18 Lidocaine Patch 5% [Lidoderm Patch] 1 each TOP DAILY 08/14/18 08/14/18 Melatonin 3 mg PO DAILY PM 08/14/18 08/14/18 Multivitamin [Multiple Vitamins] 1 tab PO DAILY 08/14/18 08/14/18 Ondansetron HCl [Zofran] 4 mg PO Q8HR PRN 08/14/18 08/14/18 buPROPion HCl [Bupropion HCl] 100 mg PO BID 08/14/18 08/14/18 oxyCODONE [Roxicodone] 2.5 - 5 mg PO Q3HR PRN 08/14/18 08/14/18 - Allergies Allergies/Adverse Reactions: Allergies Allergy/AdvReac Type Severity Reaction Status Date / Time Penicillins Allergy Intermediate swelling Verified 08/14/18 16:43 wheat AdvReac Intermediate malaise, Verified 08/14/18 16:43 headache, dizziness phenyl derivatives Allergy Unknown Uncoded 07/12/18 16:54 - Living Situation Living Arrangement: reports: longterm (She had lived at home prior to her fall recently and is in [facility] rib fractures.) - Social History Does the pt smoke?: No Smoking Status: Never smoker Does the pt drink ETOH?: Yes Does the pt have substance abuse?: No - Family History Family history: reports: Non contributory - Immunizations Immunizations are current?: Yes - POLST Patient has POLST: No PD ED PE NORMAL - Vitals Vital signs reviewed: Yes - General General: Alert and oriented X 3, Well developed/nourished, Other (she does have some wheezing and mild tachypnea but does not have retractions and is able to talk in mostly complete sentences. ) - HEENT HEENT: Moist mucous membranes, Pharynx benign - Neck Neck: Supple, no meningeal sign, No adenopathy - Cardiac Cardiac: RRR, No murmur, No rub - Respiratory Respiratory: No: Clear bilaterally (decreased on left base. Some coarse sounds left mid lung field. Right sounds clear. ) - Abdomen Abdomen: Normal bowel sounds, Soft, Non tender, Non distended - Female Female : Deferred - Rectal Rectal: Deferred - Back Back: No CVA TTP - Derm Derm: Normal color, Warm and dry - Extremities Extremities: No deformity, No tenderness to palpate, Normal ROM s pain, No edema, No calf tenderness / cord - Neuro Neuro: Alert and oriented X 3, No motor deficit, Normal speech Eye Opening: Spontaneous Motor: Obeys Commands Verbal: Oriented GCS Score: 15 Results - Vitals Vitals: Vital Signs - 24 hr 08/14/18 08/14/18 08/14/18 16:35 18:06 19:09 Temperature 37.2 C 38.4 C H Heart Rate 88 104 H Respiratory 28 H 21 Rate Blood Pressure 185/81 H O2 Saturation 98 08/14/18 20:14 Temperature Heart Rate 94 Respiratory 20 Rate Blood Pressure O2 Saturation Oxygen O2 Source [With Activity] Nasal cannula O2 Source [Without Activity] Nasal cannula O2 Source Nasal cannula - Labs Labs: Microbiology 08/14/18 19:50 Gram Stain - Final Pleural Fluid Laboratory Tests 08/14/18 08/14/18 08/14/18 18:05 18:05 18:05 WBC 19.3 H RBC 4.00 L Hgb 12.5 Hct 37.1 MCV 92.8 MCH 31.2 H MCHC 33.6 RDW 14.7 Plt Count 182 MPV 8.3 Neut # (Auto) Not Reportable Lymph # (Auto) Not Reportable Bullock # (Auto) Not Reportable Eos # (Auto) Not Reportable Baso # (Auto) Not Reportable Absolute Nucleated RBC Not Reportable Total Counted 100 Band Neuts % (Manual) 3 Reactive Lymphs % (Man) 3 Abnorm Lymph % (Manual) 0 Metamyelocytes % 5 H Myelocytes % 1 H Nucleated RBC % Not Reportable Neutrophils # (Manual) 13.7 H Lymphocytes # (Manual) 1.4 L Monocytes # (Manual) 3.1 H Eosinophils # (Manual) 0.0 Basophils # (Manual) 0.0 Differential Comment MANUAL DIFFERENTIAL Manual Slide Review Indicated Platelet Estimate NORMAL (130-450,000) Platelet Morphology NORMAL APPEARANCE RBC Morph Micro Appear NORMAL APPEARANCE Sodium 131 L Potassium 4.0 Chloride 92 L Carbon Dioxide 29 Anion Gap 10.0 BUN 16 Creatinine 0.8 Estimated GFR (MDRD) 68 L Glucose 118 H Lactic Acid Calcium 9.0 Magnesium 2.0 Total Bilirubin 1.0 AST 49 H ALT 85 H Alkaline Phosphatase 163 H B-Natriuretic Peptide 107 H Total Protein 7.3 Albumin 3.9 Globulin 3.4 Albumin/Globulin Ratio 1.1 Lipase 23 Fluid Source Fluid Color Fluid Clarity Fluid WBC Fluid RBC Fluid Neutrophils % Fluid Lymphocytes % Fluid Monocytes % Fluid Macrophages % Fld Mesothelial Cell % Fluid Crystals Influenza A (Rapid) Influenza B (Rapid) 08/14/18 08/14/18 08/14/18 19:12 19:50 19:50 WBC RBC Hgb Hct MCV MCH MCHC RDW Plt Count MPV Neut # (Auto) Lymph # (Auto) Bullock # (Auto) Eos # (Auto) Baso # (Auto) Absolute Nucleated RBC Total Counted Band Neuts % (Manual) Reactive Lymphs % (Man) Abnorm Lymph % (Manual) Metamyelocytes % Myelocytes % Nucleated RBC % Neutrophils # (Manual) Lymphocytes # (Manual) Monocytes # (Manual) Eosinophils # (Manual) Basophils # (Manual) Differential Comment Manual Slide Review Platelet Estimate Platelet Morphology RBC Morph Micro Appear Sodium Potassium Chloride Carbon Dioxide Anion Gap BUN Creatinine Estimated GFR (MDRD) Glucose Lactic Acid Calcium Magnesium Total Bilirubin AST ALT Alkaline Phosphatase B-Natriuretic Peptide Total Protein Albumin Globulin Albumin/Globulin Ratio Lipase Fluid Source PLEURAL Fluid Color BLOODY Fluid Clarity CLOUDY Fluid WBC 978 Fluid RBC [id number] Fluid Neutrophils % 18.0 Fluid Lymphocytes % 70.0 Fluid Monocytes % 5.0 Fluid Macrophages % 2.0 Fld Mesothelial Cell % 5.0 Fluid Crystals NONE SEEN Influenza A (Rapid) Negative Influenza B (Rapid) Negative 08/14/18 20:00 WBC RBC Hgb Hct MCV MCH MCHC RDW Plt Count MPV Neut # (Auto) Lymph # (Auto) Bullock # (Auto) Eos # (Auto) Baso # (Auto) Absolute Nucleated RBC Total Counted Band Neuts % (Manual) Reactive Lymphs % (Man) Abnorm Lymph % (Manual) Metamyelocytes % Myelocytes % Nucleated RBC % Neutrophils # (Manual) Lymphocytes # (Manual) Monocytes # (Manual) Eosinophils # (Manual) Basophils # (Manual) Differential Comment Manual Slide Review Platelet Estimate Platelet Morphology RBC Morph Micro Appear Sodium Potassium Chloride Carbon Dioxide Anion Gap BUN Creatinine Estimated GFR (MDRD) Glucose Lactic Acid 1.2 Calcium Magnesium Total Bilirubin AST ALT Alkaline Phosphatase B-Natriuretic Peptide Total Protein Albumin Globulin Albumin/Globulin Ratio Lipase Fluid Source Fluid Color Fluid Clarity Fluid WBC Fluid RBC Fluid Neutrophils % Fluid Lymphocytes % Fluid Monocytes % Fluid Macrophages % Fld Mesothelial Cell % Fluid Crystals Influenza A (Rapid) Influenza B (Rapid) Procedures - Thoracentesis Preparation: Consent obtained (verbal with patient and family), Sitting Technique: Catheter over needle, Intercostal space - enter (8), Lateral, Left Fluid: Cloudy, Bloody, Sent for cell count, Sent for gram stain, Sent for culture Aftercare: CXR obtained, No pneumo, No complications, Patient tolerated well, Dressing applied PD MEDICAL DECISION MAKING - ED course Complexity details: reviewed results, re-evaluated patient (Her breathing is slightly improved with the thoracentesis and more so with nebulizer treatments. Her oxygenation level is good. She does not look to be in respiratory distress. She did develop a fever while here and has an elevated white count in the pleural fluid is cloudy with some white cells. Concern would be for pneumonia or early empyema. At this point I would defer a chest tube to see if there is his actual infection based on culture or defer it to the hospitalist.), considered differential, d/w patient, d/w sr solutions consultant (Hospitalist) Departure - Departure Disposition: 66 [facility] DC/Xfer Clinical Impression: Pleural effusion on left Fever Qualifiers: Fever type: unspecified Qualified Code(s): R50.9 - Fever, unspecified Pneumonia Qualifiers: Pneumonia type: due to unspecified organism Laterality: left Lung location: lower lobe of lung Qualified Code(s): J18.1 - Lobar pneumonia, unspecified organism Condition: Stable Record reviewed to determine appropriate education?: Yes
--- NOTE | 2018-08-14 17:45 | XRAY Report ---
Reason: cp soa Procedure Date: 08/14/2018 Accession Number: [id number] / [id number] Procedure: XR - Chest 2 View X-Ray CPT Code: 59961 FULL RESULT: EXAM: CHEST RADIOGRAPHY EXAM DATE: 08/14/2018 05:33 PM. CLINICAL HISTORY: Cp soa. COMPARISON: CHEST 2 VIEW 08/12/2018 3:48 PM. TECHNIQUE: 2 views. FINDINGS: Lungs/Pleura: Stable left pleural effusion and basilar airspace disease. No new consolidation, pneumothorax, or right effusion. Mediastinum: Heart and mediastinal contours are unremarkable. Other: None. IMPRESSION: Stable left effusion and basilar airspace disease. RADIA
[2018-08-14] MEDS ORDERED: MORPHINE 10 MG/ML VIAL IVP STA ×2 (17:48→19:26)
[2018-08-14] MEDS ORDERED: ALBUTEROL NEB 2.5 MG/3 ML INH STA ×2 (17:48→19:50)
[2018-08-14 18:09] LABS: BASOPHILS % (AUTO) 0.2 %; EOSINOPHILS % (AUTO) 0.2 %; HGB - HEMOGLOBIN 12.5 g/dL (12.0-16.0); LYMPHOCYTES % (AUTO) 8.8 %; MEAN CORPUSCULAR HEMOGLOBIN 31.2 pg (27.0-31.0); MEAN CORPUSCULAR HGB CONC 33.6 g/dL (32.0-36.0); MEAN CORPUSCULAR VOLUME 92.8 fL (81.0-99.0); MEAN PLATELET VOLUME 8.3 fL (7.9-10.8); MONOCYTES % (AUTO) 26.4 %; NEUTROPHILS % (AUTO) 64.4 %; PLT - PLATELET COUNT 182 10^3/uL (130-450); RED CELL DISTRIBUTION WIDTH 14.7 % (12.0-15.0); WHITE BLOOD COUNT 19.3 x10^3/uL (4.8-10.8)
[2018-08-14 18:12] LABS: ABNORMAL LYMPHS % (MANUAL) 0 %
[2018-08-14 18:24] LABS: ALBUMIN 3.9 g/dL (3.2-5.5); ALBUMIN/GLOBULIN RATIO 1.1 (1.0-2.2); CREATININE 0.8 mg/dL (0.4-1.0); TOTAL PROTEIN 7.3 g/dL (6.7-8.2)
[2018-08-14 19:09] LABS: BAND NEUTROPHILS % (MANUAL) 3 %; LYMPHOCYTES # (MANUAL) 1.4 10^3/uL (1.5-3.5); LYMPHOCYTES % (MANUAL) 4 %; METAMYELOCYTES % (MANUAL) 5 %; MONOCYTES # (MANUAL) 3.1 10^3/uL (0.0-1.0); MYELOCYTES % (MANUAL) 1 %; NEUTROPHILS # (MANUAL) 13.7 10^3/uL (1.5-6.6); NEUTROPHILS % (MANUAL) 68 %
[2018-08-14 19:23] LABS: DIFFERENTIAL COMMENT MANUAL DIFFERENTIAL; PLATELET ESTIMATE, MANUAL NORMAL (130-450,000) (NORMAL); PLATELET MORPHOLOGY NORMAL APPEARANCE (NORMAL); RBC MORPHOLOGY (MULTIPLE) NORMAL APPEARANCE (NORMAL)
[2018-08-14] MEDS ORDERED: ACETAMINOPHEN 325 MG TABLET PO STA (19:26)
[2018-08-14] MEDS ORDERED: cefTRIAXone 1 GM VIAL IVP STA (19:49)
[2018-08-14] MEDS ORDERED: AZITHROMYCIN INJ 500 MG in SODIUM CHLORIDE 0.9% 250 ML IV STA (19:50)
[2018-08-14 20:13] LABS: CC,BF RBC 120300 /mm^3
[2018-08-14 20:16] LABS: BF COLOR BLOODY; BF SOURCE PLEURAL
--- NOTE | 2018-08-14 20:22 | XRAY Report ---
Reason: chest pain Procedure Date: 08/14/2018 Accession Number: [id number] / [id number] Procedure: XR - Chest 1 View X-Ray CPT Code: 30414 FULL RESULT: EXAM: CHEST RADIOGRAPHY EXAM DATE: 08/14/2018 08:11 PM. CLINICAL HISTORY: Chest pain. COMPARISON: CHEST 2 VIEW 08/14/2018 5:12 PM. TECHNIQUE: 1 view. FINDINGS: Lungs/Pleura: Decrease in left effusion. Stable basilar atelectasis. No pneumothorax. Mediastinum: Within exam limitations, the cardiomediastinal contour is normal. Other: None. IMPRESSION: Decrease in left effusion. No post procedure pneumothorax. RADIA
[2018-08-14] MEDS ORDERED: TEMAZEPAM 15 MG CAPSULE PO PRN (20:37)
[2018-08-14] MEDS ORDERED: ONDANSETRON 4 MG/2 ML VIAL IVP PRN (20:37)
[2018-08-14] MEDS ORDERED: MORPHINE 2 MG/ML CARPUJECT IVP PRN (20:37)
[2018-08-14] MEDS ORDERED: PROCHLORPERAZINE 10 MG/2 ML VIAL IVP PRN (20:37)
[2018-08-14] MEDS ORDERED: SODIUM CHLORIDE FLUSH 0.9% 10 ML SYRINGE IVP PRN (20:37)
[2018-08-14] MEDS ORDERED: CETIRIZINE 10 MG TABLET PO PRN (20:46)
[2018-08-14] MEDS ORDERED: BISACODYL 10 MG SUPP PR PRN (20:46)
[2018-08-14] MEDS ORDERED: ALBUTEROL NEB 2.5 MG/3 ML INH PRN (20:47)
--- NOTE | 2018-08-14 20:50 | HISTORY & PHYSICAL EXAMINATION ---
Chief Complaint - Chief Complaint Chief Complaint: Rib pain, SOB History of Present Illness - Admitted From Admitted From:: ED, [facility] - History Obtained From Records Reviewed: ED, Prior admits History obtained from: Pt, ED physician Exam Limitations: Pt very tired, poor historian - History of Present Illness HPI Comment/Other: Patient is an 87-year-old female with past medical history of hypothyroidism, as well as fractures of multiple ribs on the left side in July 2018 who was sent to [facility] or (pt is unsure - but she was sent to [place] for care) for some concerns of her flail chest secondary to these rib fractures, subsequently transferred to [facility] who has continued to have difficulty with chest wall pain and shortness of breath. She was evaluated by the MD at the nursing facility who had arranged for the patient to have an outpatient thoracentesis for a probable pleural effusion. However in the last 24 hours the patient's pain has continued to increase and she has had more difficulty breathing and so the patient was sent to the emergency department for further more acute evaluation. In the emergency department the patient was found to be in pain but not acutely hypoxic. She did have some wheezing which is something that has been present wh ile in the fdc and has been managed with breathing treatments there, and responded to nebulizer treatments that she would have had in the nursing facility anyway. The remainder of the workup was remarkable for pleural effusion on the chest x-ray, a elevated white blood cell count of 19, and a moderate fever. A thoracentesis was done for primarily therapeutic purposes but also for fluid analysis by the ED physician with some suggestion of possible infectious etiology with an elevated white blood cell count with further results on the fluid analysis is still pending. Patient does not appear to have any obvious signs of infection, she is not septic with a normal lactic acid and her vital signs are relatively stable with hypertension. Chest x-ray does not demonstrate any evidence of infection but she was given a dose of azithromycin for possible underlying pneumonia given the fever and white blood cell count. We were called to admit the patient under our services for possible treatment of pneumonia pending clinical course, and possible chest tube if effusion shows infection which would necessitate further drainage versus noninfectious which could potentially be treated conservatively. History - Past Medical History Cardiovascular: reports: None Respiratory: reports: Tuberculosis Endocrine/Autoimmune: reports: HyPOthyroidism GI: reports: Other : reports: Incontinence HEENT: reports: Other Psych: reports: Depression Musculoskeletal: reports: Osteoarthritis, Chronic back pain Derm: reports: Other MRSA Hx?: Yes Other Past Medical History: colon cancer - Past Surgical History General: reports: Appendectomy, Bowel surgery Ortho: reports: Knee replacement HEENT: reports: Cataracts, Tonsil/Adenoidectomy - Family & Social History Living arrangement: pen[facility]iary - POLST Patient has POLST: No Meds/Allgy - Home Medications Home Medications: Ambulatory Orders Medication Instructions Recorded Confirmed Levothyroxine [Synthroid] 50 mcg PO QDAC 01/20/14 10/17/17 Antidepressant 10/17/17 Acetaminophen [Tylenol Extra 1,000 mg PO Q8HR PRN 08/14/18 08/14/18 Strength] Cetirizine [ZyrTEC] 5 mg PO DAILY PRN 08/14/18 08/14/18 Ibuprofen [Ibu] 600 mg PO Q6HR PRN 08/14/18 08/14/18 Lidocaine Patch 5% [Lidoderm Patch] 1 each TOP DAILY 08/14/18 08/14/18 Melatonin 3 mg PO DAILY PM 08/14/18 08/14/18 Multivitamin [Multiple Vitamins] 1 tab PO DAILY 08/14/18 08/14/18 Ondansetron HCl [Zofran] 4 mg PO Q8HR PRN 08/14/18 08/14/18 RX: Bisacodyl Supp [Dulcolax Supp] 10 mg WA DAILY PRN 08/14/18 08/14/18 RX: Cholecalciferol (Vitamin D3) 1,000 unit PO DAILY 08/14/18 08/14/18 [Vitajoy Daily D] RX: oxyCODONE [Roxicodone] 2.5 - 5 mg PO Q3HR PRN 08/14/18 08/14/18 buPROPion HCl [Bupropion HCl] 100 mg PO BID 08/14/18 08/14/18 - Allergies Allergies/Adverse Reactions: Allergies Allergy/AdvReac Type Severity Reaction Status Date / Time Penicillins Allergy Intermediate swelling Verified 08/14/18 16:43 wheat AdvReac Intermediate malaise, Verified 08/14/18 16:43 headache, dizziness phenyl derivatives Allergy Unknown Uncoded 07/12/18 16:54 Review of Systems - Constitutional Constitutional: reports: Fatigue, Fever, Chills, Weakness - Cardiovascular Cariovascular: denies: Chest pain, Orthopnea - Respiratory Respiratory: reports: Cough, Wheezing, Pleuritic pain - Gastrointestinal Gastrointestinal: denies: Abdominal pain - Musculoskeletal Musculoskeletal: reports: Other (Rib and chest wall pain) - Neurological Neurological: reports: Memory problems - Psychiatric Psychiatric: reports: Depression - Endocrine Endocrine: denies: Polyuria, Polydypsia - Hematologic/Lymphatic Hematologic/Lymphatic: denies: Bruising - All Other Systems All Other Systems: reports: Reviewed and negative Prior Level of Functionality: Patient [place], does need some assistance with ADLs Exam - Vital Signs Vital Signs: Vital Signs x48h Temp Pulse Resp BP Pulse Ox 08/14/18 20:14 94 20 08/14/18 19:09 38.4 C H 08/14/18 18:06 104 H 21 08/14/18 16:35 37.2 C 88 28 H 185/81 H 98 - Physical Exam General Appearance: positive: No acute distress Eyes Bilateral: positive: Normal inspection ENT: positive: ENT inspection nml Neck: positive: Nml inspection Respiratory: positive: Other (There is significantly diminished breath sounds on the left side at the mid and lower lung ramey, there is no wheezing, rhonchi, o r rales) Cardiovascular: positive: Regular rate & rhythm, No murmur, No gallop Peripheral Pulses: positive: 2+ Abdomen: positive: Non-tender, No organomegaly, Nml bowel sounds, No distention Skin: positive: Color nml Extremities: positive: Non-tender, No pedal edema Neurologic/Psychiatric: positive: Oriented x3, Other (Possible evidence of mild dementia, patient did not seem to remember the events after the last hospital admission. She also did not seem familiar with where she is currently residing and that she did not think it was a nursing facility) Conclusion/Plan - Problem List (1) Pleural effusion on left Conclusion/Plan: Patient is status post 6 rib fractures on the left approximately 1 month ago, with now subsequent pleural effusion. Successful thoracentesis performed in the emergency room with full fluid analysis results pending but somewhat suggestive of possible infection versus empyema. Patient is currently not hypoxic, and her pain appears to be fairly well controlled now. She does however have a leukocytosis and if this does prove to be infected she may potentially need a thoracentesis. We will keep the patient at a minimum overnight, with possible 2-3-day stay for management of pleural effusion and possible thoracentesis. (2) Shortness of breath at rest Conclusion/Plan: Secondary to pleural effusion however there is possibility of pneumonia given the elevated white blood cell count, and fever in the emergency department. Given that she is coming from a [facility]dc and has been in the hospital in the last month, I am going to treat empirically for hospital acquired pneumonia with vancomycin, cefepime, and Levaquin. Pending clinical course may be able to discontinue or convert to oral antibiotics prior to discharge.In the meantime, continue supportive measures, incentive spirometry, and possible surgical consult in the a.m. if thoracentesis is needed.Also will continue as needed breathing treatments. (3) Fever Conclusion/Plan: Possible pneumonia versus secondary to pleural effusion and atelectasis. Given the elevated white blood cell count, I am treating empirically for healthcare acquired pneumonia, will follow lab results pending clinical course further decision regarding antibiotics to be decided.Possible pneumonia versus secondary to pleural effusion and atelectasis. Given the elevated white blood cell count, I am treating empirically for healthcare acquired pneumonia, will follow lab results pending clinical course further decision regarding antibiotics to be decided. Qualifiers: Fever type: unspecified Qualified Code(s): R50.9 - Fever, unspecified (4) Leukocytosis Conclusion/Plan: Possible infection, see above (5) Flail chest Conclusion/Plan: Secondary to rib fractures, see plan as above Qualifiers: Encounter type: initial encounter Fracture type: closed Qualified Code(s): S22.5XXA - Flail chest, initial encounter for closed fracture (6) Hypothyroidism Conclusion/Plan: Continue current home medication - Lab Results Fish Bones: 08/14/18 18:05 08/14/18 18:05 - Diagnostic Imaging Results Diagnostic Imaging Results: positive: Final report reviewed, Read independently Core Measures - Anticipated LOS I expect patient to be DC'd or transferred within 96 hours.: Yes - DVT/VTE - Prophylaxis VTE/DVT Device ordered at admit?: Yes
[2018-08-14 21:26] LABS: BILIRUBIN,URINE NEGATIVE (NEGATIVE); GLUCOSE, URINE (UA) NEGATIVE (NEGATIVE); KETONES,URINE (UA) TRACE mg/dL (NEGATIVE); LEUKOCYTE ESTERASE, URINE NEGATIVE (NEGATIVE); NITRITE,URINE NEGATIVE (NEGATIVE); OCCULT BLOOD,URINE MODERATE (NEGATIVE); PROTEIN,URINE 100 mg/dL (NEGATIVE); UROBILINOGEN,URINE 0.2 (NORMAL) E.U./dL (NORMAL)
[2018-08-14 21:29] LABS: CLARITY,URINE CLOUDY (CLEAR)
[2018-08-14] MEDS ORDERED: VANCOMYCIN INJ 1 GM in SODIUM CHLORIDE 0.9% 500 ML IV ONE (21:30)
[2018-08-14 21:37] LABS: AMORPHOUS SEDIMENT,UR Moderate /LPF; BACTERIA,URINE Rare /HPF (None Seen); SQUAMOUS EPITHELIAL CELL,UR FEW Squamous (<= Few)
[2018-08-14] MEDS ORDERED: CEFEPIME 2 GM in SODIUM CHLORIDE 0.9% MINIBAG 100 ML IV SCH (22:00)
[2018-08-14] MEDS: levoFLOXacin 750 MG/150 ML 750 MG/150 ML BAG IV SCH (22:51)
[2018-08-15] MEDS: FAMOTIDINE 20 MG TABLET PO SCH ×3 (01:33→20:39)
[2018-08-15] MEDS: SODIUM CHLORIDE FLUSH 0.9% 10 ML SYRINGE IVP SCH ×3 (01:50→17:30)
[2018-08-15] MEDS: ACETAMINOPHEN 500 MG TABLET PO PRN (04:10)
[2018-08-15 05:21] LABS: HGB - HEMOGLOBIN 11.2 g/dL (12.0-16.0); MEAN CORPUSCULAR HEMOGLOBIN 32.3 pg (27.0-31.0); MEAN CORPUSCULAR HGB CONC 34.6 g/dL (32.0-36.0); MEAN CORPUSCULAR VOLUME 93.2 fL (81.0-99.0); MEAN PLATELET VOLUME 8.8 fL (7.9-10.8); RED BLOOD COUNT 3.46 10^6/uL (4.20-5.40); RED CELL DISTRIBUTION WIDTH 14.3 % (12.0-15.0); WHITE BLOOD COUNT 18.6 x10^3/uL (4.8-10.8)
[2018-08-15 05:32] LABS: CALCIUM 8.7 mg/dL (8.5-10.3); CREATININE 0.7 mg/dL (0.4-1.0)
[2018-08-15] MEDS: LEVOTHYROXINE 25 MCG TABLET PO SCH (06:58)
[2018-08-15] MEDS: CHOLECALCIFEROL 1,000 UNIT TABLET PO SCH (08:19)
[2018-08-15] MEDS: POLYETHYLENE GLYCOL 3350 17 GM PACKET PO SCH (08:19)
[2018-08-15] MEDS: buPROPion SR 100 MG TABLET PO SCH ×2 (08:19→20:39)
[2018-08-15] MEDS: LIDOCAINE PATCH 5% TOP SCH (08:19)
[2018-08-15] MEDS: MULTIVITAMIN TABLET PO SCH (08:19)
[2018-08-15] MEDS ORDERED: VANCOMYCIN PER PHARMACY 1 GM in SODIUM CHLORIDE 0.9% 250 ML IV SCH (09:00)
--- NOTE | 2018-08-15 09:52 | XRAY Report ---
Reason: SOB, F/U thoracentesis,? need for chest tube Procedure Date: 08/15/2018 Accession Number: [id number] / [id number] Procedure: XR - Chest 1 View X-Ray CPT Code: 89017 FULL RESULT: EXAM: CHEST RADIOGRAPHY EXAM DATE: 08/15/2018 09:28 AM. CLINICAL HISTORY: SOB, F/U thoracentesis,? need for chest tube. COMPARISON: 08/14/2018. TECHNIQUE: 1 view. FINDINGS: Lungs/Pleura: Left pleural effusion with underlying infiltrate or atelectasis appear similar. Patchy areas of infiltrate right mid to lower lateral chest. There may be a left suprahilar infiltrate. Mediastinum: Within exam limitations, the cardiomediastinal contour is normal. Other: None. IMPRESSION: 1. Left pleural effusion with underlying infiltrate or atelectasis similar. 2. Patchy infiltrates right mid lower lateral chest, left suprahilar region RADIA
[2018-08-15] MEDS: CEFEPIME 2 GM in SODIUM CHLORIDE 0.9% MINIBAG 100 ML IV SCH ×2 (10:21→19:46)
--- NOTE | 2018-08-15 10:45 | PROVIDER PROGRESS NOTE ---
Assessment/Plan - Problem List (1) HCAP (healthcare-associated pneumonia) Assessment/Plan: Th repeat CXR shows underlying infiltrates, and still some L sided pleural effusion. The radiologist did not have an impression as to wether it is smaller or larger, but to my interpretation the pleural effusion is present but smaller than yesterday, has not re-accumulated to the same size. Will start a diet, no NPO for chest tube placement at this time. Continue empiric antibiotics for HCAP with iv antibiotics: Vanco, Cefipime and Levaquin. Await culture results. Monitor temp and daily CBC. Order a sputum culture if she makes sputum. Continue Incentive Spirometry. (2) Pleural effusion on left Assessment/Plan: Awaiting lab eval of the fluid sent off. Monitor with CXR daily for several days for re-accumulation. (3) Rib fractures Qualifiers: Rib fracture type: multiple ribs Laterality: left Assessment/Plan: She appears to have adequate pain control. Continue pain meds and begin IS. (4) Hypothyroidism Assessment/Plan: Continue home dose of Synthroid (5) Hyponatremia Assessment/Plan: Na improved with hydration. Monitor BMP daily. - Current Meds Current Meds: Current Medications Generic Name Dose Route Start Last Admin Trade Name Freq PRN Reason Stop Dose Admin Acetaminophen 1,000 mg 08/14/18 20:46 08/15/18 04:10 Tylenol PO 1,000 mg Q8HR PRN Administration PAIN Bupropion HCl 100 mg 08/15/18 09:00 08/15/18 08:19 Wellbutrin Sr PO 100 mg BID YANA Administration Cholecalciferol 1,000 unit 08/15/18 09:00 08/15/18 08:19 Vitamin D3 PO 1,000 unit DAILY YANA Administration Famotidine 20 mg 08/14/18 21:00 08/15/18 08:19 Pepcid PO 20 mg BID YANA Administration Levofloxacin 750 mg in 150 mls @ 100 mls/hr 08/14/18 21:00 08/15/18 01:34 Levaquin 750 Mg/150 Ml IV 08/21/18 20:59 Infused Q24H YANA Infusion Cefepime HCl 2 gm/ Sodium 100 mls @ 200 mls/hr 08/15/18 10:00 08/15/18 10:21 Chloride IV 200 mls/hr Q8H YANA Administration Levothyroxine Sodium 50 mcg 08/15/18 07:00 08/15/18 06:58 Synthroid PO 50 mcg QDAC YANA Administration Lidocaine 1 patch 08/15/18 09:00 08/15/18 08:19 Lidoderm Patch TOP 1 patch DAILY YANA Administration Multivitamins 1 tab 08/15/18 09:00 08/15/18 08:19 Theragran PO 1 tab DAILY YANA Administration Polyethylene Glycol 17 gm 08/15/18 09:00 08/15/18 08:19 Miralax PO 17 gm DAILY YANA Administration Sodium Chloride 10 ml 08/15/18 01:00 08/15/18 08:19 Normal Saline Flush 0.9% IVP 10 ml 0100,0900,1700 YANA Administration - Lab Result Fish Bone Diagrams: 08/15/18 04:45 08/15/18 04:45 - Additional Planning My Orders: My Active Orders 08/15/18 Breakfast Clear Liquid Diet [DIET] Subjective - Subjective Patient Reports: Other ("I'm hungry".) Objective Vital Signs: Vital Signs - 24 hr 08/14/18 08/14/18 08/14/18 16:35 17:30 18:06 Temperature 37.2 C Heart Rate 88 95 104 H Heart Rate [ Monitoring electrodes] Respiratory 28 H 28 H 21 Rate Blood Pressure 185/81 H Blood Pressure [Right Brachial artery] O2 Saturation 98 98 08/14/18 08/14/18 08/14/18 18:30 19:09 19:30 Temperature 38.4 C H Heart Rate 112 H 105 H Heart Rate [ Monitoring electrodes] Respiratory 30 H 24 Rate Blood Pressure 178/84 H Blood Pressure [Right Brachial artery] O2 Saturation 99 96 08/14/18 08/14/18 08/14/18 20:14 20:30 21:30 Temperature 38 C H Heart Rate 94 105 H 94 Heart Rate [ Monitoring electrodes] Respiratory 20 24 21 Rate Blood Pressure 154/69 H Blood Pressure [Right Brachial artery] O2 Saturation 95 95 08/14/18 08/15/18 08/15/18 22:19 00:00 03:56 Temperature 37.3 C 36.9 C 37.6 C H Heart Rate Heart Rate [ 84 93 Monitoring electrodes] Respiratory 20 18 Rate Blood Pressure Blood Pressure 130/58 L 136/72 H [Right Brachial artery] O2 Saturation 97 99 1108/15/18 08/15/18 05:19 06:53 07:22 Temperature 37.6 C H 36.8 C 37.1 C Heart Rate Heart Rate [ 80 Monitoring electrodes] Respiratory 19 Rate Blood Pressure Blood Pressure 138/82 H [Right Brachial artery] O2 Saturation 97 Oxygen O2 Source [With Activity] Nasal cannula O2 Source [Without Activity] Nasal cannula O2 Source Nasal cannula Oxygen Flow Rate 2 I&O (Last 24 Hrs): Intake and Output Totals x24h 08/13/18 08/14/18 08/15/18 23:59 23:59 23:59 Intake Total 250 850 Output Total 850 1150 Balance -600 -300 General: Alert HEENT: Mucous membr. moist/pink Neck: Supple, No JVD Neuro: Other (Confused) Cardiovascular: Regular rate, No murmurs Respiratory: No respiratory distress, Other (diminished beath sounds on L) Abdomen: Soft Extremities: No edema - Results Results: Laboratory Results WBC 18.6 x10^3/uL (4.8-10.8) H 08/15/18 04:45 RBC 3.46 10^6/uL (4.20-5.40) L 08/15/18 04:45 Hgb 11.2 g/dL (12.0-16.0) L 08/15/18 04:45 Hct 32.3 % (37.0-47.0) L 08/15/18 04:45 MCV 93.2 fL (81.0-99.0) 08/15/18 04:45 MCH 32.3 pg (27.0-31.0) H 08/15/18 04:45 MCHC 34.6 g/dL (32.0-36.0) 08/15/18 04:45 RDW 14.3 % (12.0-15.0) 08/15/18 04:45 Plt Count 159 10^3/uL (130-450) 08/15/18 04:45 MPV 8.8 fL (7.9-10.8) 08/15/18 04:45 Neut # (Auto) Not Reportable 08/14/18 18:05 Lymph # (Auto) Not Reportable 08/14/18 18:05 [place] # (Auto) Not Reportable 08/14/18 18:05 Eos # (Auto) Not Reportable 08/14/18 18:05 Baso # (Auto) Not Reportable 08/14/18 18:05 Absolute Nucleated RBC Not Reportable 08/14/18 18:05 Total Counted 100 08/14/18 18:05 Band Neuts % (Manual) 3 % (0-10) 08/14/18 18:05 Reactive Lymphs % (Man) 3 % 08/14/18 18:05 Abnorm Lymph % (Manual) 0 % 08/14/18 18:05 Metamyelocytes % 5 % (-0) H 08/14/18 18:05 Myelocytes % 1 % (-0) H 08/14/18 18:05 Nucleated RBC % Not Reportable 08/14/18 18:05 Neutrophils # (Manual) 13.7 10^3/uL (1.5-6.6) H 08/14/18 18:05 Lymphocytes # (Manual) 1.4 10^3/uL (1.5-3.5) L 08/14/18 18:05 Monocytes # (Manual) 3.1 10^3/uL (0.0-1.0) H 08/14/18 18:05 Eosinophils # (Manual) 0.0 10^3/uL (0-0.7) 08/14/18 18:05 Basophils # (Manual) 0.0 10^3/uL (0-0.1) 08/14/18 18:05 Differential Comment MANUAL DIFFERENTIAL 08/14/18 18:05 Manual Slide Review Indicated 08/14/18 18:05 Platelet Estimate NORMAL (130-450,000) (NORMAL) 08/14/18 18:05 Platelet Morphology NORMAL APPEARANCE (NORMAL) 08/14/18 18:05 RBC Morph Micro Appear NORMAL APPEARANCE (NORMAL) 08/14/18 18:05 Sodium 134 mmol/L (135-145) L 08/15/18 04:45 Potassium 3.8 mmol/L (3.5-5.0) 08/15/18 04:45 Chloride 98 mmol/L (101-111) L 08/15/18 04:45 Carbon Dioxide 27 mmol/L (21-32) 08/15/18 04:45 Anion Gap 9.0 (6-13) 08/15/18 04:45 BUN 15 mg/dL (6-20) 08/15/18 04:45 Creatinine 0.7 mg/dL (0.4-1.0) 08/15/18 04:45 Estimated GFR (MDRD) 79 (>89) L 08/15/18 04:45 Glucose 129 mg/dL (70-100) H 08/15/18 04:45 Lactic Acid 1.2 mmol/L (0.5-2.2) 08/14/18 20:00 Calcium 8.7 mg/dL (8.5-10.3) 08/15/18 04:45 Magnesium 2.0 mg/dL (1.7-2.8) 08/14/18 18:05 Total Bilirubin 1.0 mg/dL (0.2-1.0) 08/14/18 18:05 AST 49 IU/L (10-42) H 08/14/18 18:05 ALT 85 IU/L (10-60) H 08/14/18 18:05 Alkaline Phosphatase 163 IU/L (42-121) H 08/14/18 18:05 B-Natriuretic Peptide 107 pg/mL (5-100) H 08/14/18 18:05 Total Protein 7.3 g/dL (6.7-8.2) 08/14/18 18:05 Albumin 3.9 g/dL (3.2-5.5) 08/14/18 18:05 Globulin 3.4 g/dL (2.1-4.2) 08/14/18 18:05 Albumin/Globulin Ratio 1.1 (1.0-2.2) 08/14/18 18:05 Lipase 23 U/L (22-51) 08/14/18 18:05 Urine Color YELLOW 08/14/18 21:00 Urine Clarity CLOUDY (CLEAR) 08/14/18 21:00 Urine pH 6.0 PH (5.0-7.5) 08/14/18 21:00 Ur Specific [place] >=1.030 (1.002-1.030) H 08/14/18 21:00 Urine Protein 100 mg/dL (NEGATIVE) H 08/14/18 21:00 Urine Glucose (UA) NEGATIVE mg/dL (NEGATIVE) 08/14/18 21:00 Urine Ketones TRACE mg/dL (NEGATIVE) 08/14/18 21:00 Urine Occult Blood MODERATE (NEGATIVE) H 08/14/18 21:00 Urine Nitrite NEGATIVE (NEGATIVE) 08/14/18 21:00 Urine Bilirubin NEGATIVE (NEGATIVE) 08/14/18 21:00 Urine Urobilinogen 0.2 (NORMAL) E.U./dL (NORMAL) 08/14/18 21:00 Ur Leukocyte Esterase NEGATIVE (NEGATIVE) 08/14/18 21:00 Urine RBC 6-10 /HPF (0-5) H 08/14/18 21:00 Urine WBC 0-3 /HPF (0-5) 08/14/18 21:00 Ur Squamous Epith Cells FEW Squamous (<= Few) 08/14/18 21:00 Amorphous Sediment Moderate /LPF 08/14/18 21:00 Urine Bacteria Rare /HPF (None Seen) 08/14/18 21:00 Ur Microscopic Review INDICATED 08/14/18 21:00 Urine Culture Comments NOT INDICATED 08/14/18 21:00 Fluid Source PLEURAL 08/14/18 19:50 Fluid Color BLOODY 08/14/18 19:50 Fluid Clarity CLOUDY 08/14/18 19:50 Fluid WBC 978 /mm^3 08/14/18 19:50 Fluid RBC [id number] /mm^3 08/14/18 19:50 Fluid Neutrophils % 18.0 % 08/14/18 19:50 Fluid Lymphocytes % 70.0 08/14/18 19:50 Fluid Monocytes % 5.0 % 08/14/18 19:50 Fluid Macrophages % 2.0 % 08/14/18 19:50 Fld Mesothelial Cell % 5.0 % 08/14/18 19:50 Fluid Crystals NONE SEEN 08/14/18 19:50 Influenza A (Rapid) Negative (Negative) 08/14/18 19:12 Influenza B (Rapid) Negative (Negative) 08/14/18 19:12 - Procedures Procedures: Procedures CATARAC PHACOEMULS/ASPIR (10/24/14) CLOSED RED-INT FIX FEMUR (03/10/14) INSERT LENS AT CATAR EXT (10/24/14)
[2018-08-15] MEDS ORDERED: VANCOMYCIN INJ 1 GM in SODIUM CHLORIDE 0.9% 250 ML IV SCH (14:00)
[2018-08-15] MEDS: VANCOMYCIN INJ 0.75 GM in SODIUM CHLORIDE 0.9% 250 ML IV SCH (17:29)
[2018-08-15] MEDS: LORazepam 0.5 MG TABLET PO PRN (17:30)
[2018-08-15] MEDS: BENZOCAINE/MENTHOL LOZENGE MM PRN ×2 (19:30→20:48)
[2018-08-15] MEDS: HYDROcod/ACETAM 5/325 MG TABLET PO PRN (20:39)
[2018-08-15] MEDS: levoFLOXacin 750 MG/150 ML 750 MG/150 ML BAG IV SCH (20:40)
[2018-08-16] MEDS ORDERED: SODIUM CHLORIDE 0.9% 500 ML IV PRN
[2018-08-16] MEDS: CEFEPIME 2 GM in SODIUM CHLORIDE 0.9% MINIBAG 100 ML IV SCH ×3 (01:37→17:15)
[2018-08-16] MEDS: BENZOCAINE/MENTHOL LOZENGE MM PRN (01:37)
[2018-08-16] MEDS: VANCOMYCIN INJ 0.75 GM in SODIUM CHLORIDE 0.9% 250 ML IV SCH ×2 (04:59→18:24)
[2018-08-16 05:04] LABS: HGB - HEMOGLOBIN 11.2 g/dL (12.0-16.0); MEAN CORPUSCULAR HEMOGLOBIN 31.3 pg (27.0-31.0); MEAN CORPUSCULAR HGB CONC 33.4 g/dL (32.0-36.0); MEAN CORPUSCULAR VOLUME 93.7 fL (81.0-99.0); MEAN PLATELET VOLUME 8.3 fL (7.9-10.8); RED BLOOD COUNT 3.56 10^6/uL (4.20-5.40); RED CELL DISTRIBUTION WIDTH 14.6 % (12.0-15.0); WHITE BLOOD COUNT 12.4 x10^3/uL (4.8-10.8)
[2018-08-16 05:12] LABS: CALCIUM 8.2 mg/dL (8.5-10.3); CREATININE 0.7 mg/dL (0.4-1.0)
[2018-08-16] MEDS: SODIUM CHLORIDE FLUSH 0.9% 10 ML SYRINGE IVP SCH ×3 (06:02→17:16)
[2018-08-16] MEDS: LEVOTHYROXINE 25 MCG TABLET PO SCH (06:58)
[2018-08-16] MEDS ORDERED: SENNA 8.6 MG TABLET PO SCH (09:00)
[2018-08-16] MEDS ORDERED: DOCUSATE SODIUM 250 MG CAPSULE PO SCH (09:00)
[2018-08-16] MEDS: POLYETHYLENE GLYCOL 3350 17 GM PACKET PO SCH (09:32)
[2018-08-16] MEDS: LIDOCAINE PATCH 5% TOP SCH (09:32)
[2018-08-16] MEDS: LORazepam 0.5 MG TABLET PO PRN ×2 (09:32→19:02)
[2018-08-16] MEDS: MULTIVITAMIN TABLET PO SCH (09:32)
[2018-08-16] MEDS: CHOLECALCIFEROL 1,000 UNIT TABLET PO SCH (09:32)
[2018-08-16] MEDS: buPROPion SR 100 MG TABLET PO SCH ×2 (09:32→19:02)
[2018-08-16] MEDS: FAMOTIDINE 20 MG TABLET PO SCH ×2 (09:32→19:02)
--- NOTE | 2018-08-16 09:54 | XRAY Report ---
Reason: F/U thoracentesis, size of effusion and infiltrate Procedure Date: 08/16/2018 Accession Number: [id number] / [id number] Procedure: XR - Chest 1 View X-Ray CPT Code: 47360 FULL RESULT: EXAM: CHEST RADIOGRAPHY EXAM DATE: 08/16/2018 09:30 AM. CLINICAL HISTORY: Left pleural effusion. COMPARISON: CHEST 1 VIEW 08/15/2018 9:12 AM. TECHNIQUE: 1 view. FINDINGS: Lungs/Pleura: Mild left-sided pleural effusion is improved. There is no pneumothorax. Small patchy and interstitial opacities in the right lung are unchanged. Mediastinum: Within exam limitations, the cardiomediastinal contour is normal. Other: None. IMPRESSION: No pneumothorax. RADIA
--- NOTE | 2018-08-16 12:04 | PROVIDER PROGRESS NOTE ---
Assessment/Plan - Problem List (1) HCAP (healthcare-associated pneumonia) Assessment/Plan: The repeat CXR this am looks improved Patient appears improved clinically as she is breathing comfortably on RA WBC improving down to 12.4 from 19.3 Continue empiric antibiotics for HCAP with iv antibiotics: Vanco, Cefipime and Levaquin. Cultures negative so far Continue Incentive Spirometry. PT to evaluate today Likely discharge tomorrow to SNF vs [facility] (2) Pleural effusion on left Assessment/Plan: Appears secondary to atlectasis and pneumonia Gram stain and cx negative Monitor with CXR daily for several days for re-accumulation. (3) Rib fractures Qualifiers: Rib fracture type: multiple ribs Laterality: left Assessment/Plan: She appears to have adequate pain control. Continue pain meds and begin IS. (4) Hypothyroidism Assessment/Plan: Continue home dose of Synthroid (5) Hyponatremia Assessment/Plan: Na improved with hydration. Monitor BMP daily. - Current Meds Current Meds: Current Medications Generic Name Dose Route Start Last Admin Trade Name Freq PRN Reason Stop Dose Admin Acetaminophen 1,000 mg 08/14/18 20:46 08/15/18 04:10 Tylenol PO 1,000 mg Q8HR PRN Administration PAIN Hydrocodone Bitart/Acetaminophen 1 tab 08/14/18 20:37 08/15/18 20:39 [place] 5/325 PO 1 tab Q4HR PRN Administration Pain 5 to 7 Bupropion HCl 100 mg 08/15/18 09:00 08/16/18 09:32 Wellbutrin Sr PO 100 mg BID YANA Administration Cholecalciferol 1,000 unit 08/15/18 09:00 08/16/18 09:32 Vitamin D3 PO 1,000 unit DAILY YANA Administration Docusate Sodium 500 mg 08/16/18 09:00 08/16/18 09:32 Colace 250mg Capsule PO 500 mg DAILY YANA Administration Famotidine 20 mg 08/14/18 21:00 08/16/18 09:32 Pepcid PO 20 mg BID YANA Administration Levofloxacin 750 mg in 150 mls @ 100 mls/hr 08/14/18 21:00 08/15/18 22:54 Levaquin 750 Mg/150 Ml IV 08/21/18 20:59 Infused Q24H YANA Infusion Cefepime HCl 2 gm/ Sodium 100 mls @ 200 mls/hr 08/15/18 10:00 08/16/18 10:32 Chloride IV Infused Q8H YANA Infusion Vancomycin HCl 0.75 gm/ Sodium 250 mls @ 167 mls/hr 08/15/18 17:00 08/16/18 06:54 Chloride IV Infused Q12H YANA Infusion Sodium Chloride 500 mls @ 0 mls/hr 08/16/18 00:00 08/16/18 06:58 Normal Saline 0.9% IV 20 mls/hr Q24H PRN Administration TKO RATE TKO Levothyroxine Sodium 50 mcg 08/15/18 07:00 08/16/18 06:58 Synthroid PO 50 mcg QDAC YANA Administration Lidocaine 1 patch 08/15/18 09:00 08/16/18 09:32 Lidoderm Patch TOP 1 patch DAILY YANA Administration Lorazepam 0.5 mg 08/15/18 16:32 08/16/18 09:32 Ativan PO 0.5 mg BID PRN Administration Anxiety Multivitamins 1 tab 08/15/18 09:00 08/16/18 09:32 Theragran PO 1 tab DAILY YANA Administration Ondansetron HCl 4 mg 08/14/18 20:37 08/15/18 10:45 Zofran Inj IVP 4 mg Q6HR PRN Administration Nausea / Vomiting (Melatonin [ 1 each 08/15/18 21:00 08/15/18 20:53 Melatonin] 3 Mg) Tab PO Not Given QPM YANA Polyethylene Glycol 17 gm 08/15/18 09:00 08/16/18 09:32 Miralax PO 17 gm DAILY YANA Administration Senna 17.2 mg 08/16/18 09:00 08/16/18 09:33 Senokot PO Not Given DAILY YANA Sodium Chloride 10 ml 08/15/18 01:00 08/16/18 09:33 Normal Saline Flush 0.9% IVP 10 ml 0100,0900,1700 YANA Administration Throat Lozenges 1 lozenge 08/14/18 22:58 08/16/18 01:37 Cepacol MM 1 lozenge Q2HR PRN Administration Throat pain - Lab Result Lab results reviewed: Yes Fish Bone Diagrams: 08/16/18 04:40 08/16/18 04:40 - Diagnostic Imaging Results Diagnostic Imaging Results: Final report reviewed - Additional Planning Condition/Complexity: Guarded Consult/Specialty: PT Plan Discussed with:: Patient Time Spent: 31-60 minutes Subjective - Subjective Patient Reports: Cough (Continues to cough with deep breath), Pain (Improved), Shortness of Breath (Improved) Nursing Reports: No Complaints Objective Vital Signs: Vital Signs - 24 hr 08/15/18 08/15/18 08/15/18 13:00 16:16 20:28 Temperature 36.6 C 36.7 C 37.1 C Heart Rate [ 81 75 86 Monitoring electrodes] Respiratory 18 18 Rate Blood Pressure 148/67 H 143/76 H 152/61 H [Right Brachial artery] O2 Saturation 97 97 97 08/15/18 08/16/18 08/16/18 23:52 05:00 09:00 Temperature 37.1 C 37.3 C 37.1 C Heart Rate [ 95 88 84 Monitoring electrodes] Respiratory 20 18 18 Rate Blood Pressure 137/73 H 160/83 H 162/91 H [Right Brachial artery] O2 Saturation 97 94 96 Oxygen O2 Source [With Activity] Nasal cannula O2 Source [Without Activity] Nasal cannula O2 Source Room air Oxygen Flow Rate 2 I&O (Last 24 Hrs): Intake and Output Totals x24h 08/14/18 08/15/18 08/16/18 23:59 23:59 23:59 Intake Total 250 1800 940 Output Total 850 1450 800 Balance -600 350 140 General: Alert, Oriented x3, Cooperative, No acute distress, Other (Confused) HEENT: Atraumatic, PERRLA, EOMI, Mucous membr. moist/pink Neck: Supple, No JVD, No thyromegaly, +2 carotid pulse wo bruit, No LAD Lymphatic: no adenopathy Cardiovascular: Regular rate, Normal S1, Normal S2, No murmurs Respiratory: Rhonchi (Left mid and lower lung base), Other (Coughing with inspiration) Abdomen: Normal bowel sounds, Soft, No tenderness, No hepatospenomegaly Extremities: No clubbing, No cyanosis, No edema, Normal pulses Skin: No rashes, No breakdown - Results Results: Laboratory Results WBC 12.4 x10^3/uL (4.8-10.8) H 08/16/18 04:40 RBC 3.56 10^6/uL (4.20-5.40) L 08/16/18 04:40 Hgb 11.2 g/dL (12.0-16.0) L 08/16/18 04:40 Hct 33.4 % (37.0-47.0) L 08/16/18 04:40 MCV 93.7 fL (81.0-99.0) 08/16/18 04:40 MCH 31.3 pg (27.0-31.0) H 08/16/18 04:40 MCHC 33.4 g/dL (32.0-36.0) 08/16/18 04:40 RDW 14.6 % (12.0-15.0) 08/16/18 04:40 Plt Count 181 10^3/uL (130-450) 08/16/18 04:40 MPV 8.3 fL (7.9-10.8) 08/16/18 04:40 Neut # (Auto) Not Reportable 08/14/18 18:05 Lymph # (Auto) Not Reportable 08/14/18 18:05 Warren # (Auto) Not Reportable 08/14/18 18:05 Eos # (Auto) Not Reportable 08/14/18 18:05 Baso # (Auto) Not Reportable 08/14/18 18:05 Absolute Nucleated RBC Not Reportable 08/14/18 18:05 Total Counted 100 08/14/18 18:05 Band Neuts % (Manual) 3 % (0-10) 08/14/18 18:05 Reactive Lymphs % (Man) 3 % 08/14/18 18:05 Abnorm Lymph % (Manual) 0 % 08/14/18 18:05 Metamyelocytes % 5 % (-0) H 08/14/18 18:05 Myelocytes % 1 % (-0) H 08/14/18 18:05 Nucleated RBC % Not Reportable 08/14/18 18:05 Neutrophils # (Manual) 13.7 10^3/uL (1.5-6.6) H 08/14/18 18:05 Lymphocytes # (Manual) 1.4 10^3/uL (1.5-3.5) L 08/14/18 18:05 Monocytes # (Manual) 3.1 10^3/uL (0.0-1.0) H 08/14/18 18:05 Eosinophils # (Manual) 0.0 10^3/uL (0-0.7) 08/14/18 18:05 Basophils # (Manual) 0.0 10^3/uL (0-0.1) 08/14/18 18:05 Differential Comment MANUAL DIFFERENTIAL 08/14/18 18:05 Manual Slide Review Indicated 08/14/18 18:05 Platelet Estimate NORMAL (130-450,000) (NORMAL) 08/14/18 18:05 Platelet Morphology NORMAL APPEARANCE (NORMAL) 08/14/18 18:05 RBC Morph Micro Appear NORMAL APPEARANCE (NORMAL) 08/14/18 18:05 Sodium 132 mmol/L (135-145) L 08/16/18 04:40 Potassium 3.6 mmol/L (3.5-5.0) 08/16/18 04:40 Chloride 99 mmol/L (101-111) L 08/16/18 04:40 Carbon Dioxide 28 mmol/L (21-32) 08/16/18 04:40 Anion Gap 5.0 (6-13) L 08/16/18 04:40 BUN 14 mg/dL (6-20) 08/16/18 04:40 Creatinine 0.7 mg/dL (0.4-1.0) 08/16/18 04:40 Estimated GFR (MDRD) 79 (>89) L 08/16/18 04:40 Glucose 100 mg/dL (70-100) 08/16/18 04:40 Lactic Acid 1.2 mmol/L (0.5-2.2) 08/14/18 20:00 Calcium 8.2 mg/dL (8.5-10.3) L 08/16/18 04:40 Magnesium 2.0 mg/dL (1.7-2.8) 08/14/18 18:05 Total Bilirubin 1.0 mg/dL (0.2-1.0) 08/14/18 18:05 AST 49 IU/L (10-42) H 08/14/18 18:05 ALT 85 IU/L (10-60) H 08/14/18 18:05 Alkaline Phosphatase 163 IU/L (42-121) H 08/14/18 18:05 B-Natriuretic Peptide 107 pg/mL (5-100) H 08/14/18 18:05 Total Protein 7.3 g/dL (6.7-8.2) 08/14/18 18:05 Albumin 3.9 g/dL (3.2-5.5) 08/14/18 18:05 Globulin 3.4 g/dL (2.1-4.2) 08/14/18 18:05 Albumin/Globulin Ratio 1.1 (1.0-2.2) 08/14/18 18:05 Lipase 23 U/L (22-51) 08/14/18 18:05 Urine Color YELLOW 08/14/18 21:00 Urine Clarity CLOUDY (CLEAR) 08/14/18 21:00 Urine pH 6.0 PH (5.0-7.5) 08/14/18 21:00 Ur Specific [place] >=1.030 (1.002-1.030) H 08/14/18 21:00 Urine Protein 100 mg/dL (NEGATIVE) H 08/14/18 21:00 Urine Glucose (UA) NEGATIVE mg/dL (NEGATIVE) 08/14/18 21:00 Urine Ketones TRACE mg/dL (NEGATIVE) 08/14/18 21:00 Urine Occult Blood MODERATE (NEGATIVE) H 08/14/18 21:00 Urine Nitrite NEGATIVE (NEGATIVE) 08/14/18 21:00 Urine Bilirubin NEGATIVE (NEGATIVE) 08/14/18 21:00 Urine Urobilinogen 0.2 (NORMAL) E.U./dL (NORMAL) 08/14/18 21:00 Ur Leukocyte Esterase NEGATIVE (NEGATIVE) 08/14/18 21:00 Urine RBC 6-10 /HPF (0-5) H 08/14/18 21:00 Urine WBC 0-3 /HPF (0-5) 08/14/18 21:00 Ur Squamous Epith Cells FEW Squamous (<= Few) 08/14/18 21:00 Amorphous Sediment Moderate /LPF 08/14/18 21:00 Urine Bacteria Rare /HPF (None Seen) 08/14/18 21:00 Ur Microscopic Review INDICATED 08/14/18 21:00 Urine Culture Comments NOT INDICATED 08/14/18 21:00 Fluid Source PLEURAL 08/14/18 19:50 Fluid Color BLOODY 08/14/18 19:50 Fluid Clarity CLOUDY 08/14/18 19:50 Fluid WBC 978 /mm^3 08/14/18 19:50 Fluid RBC [id number] /mm^3 08/14/18 19:50 Fluid Neutrophils % 18.0 % 08/14/18 19:50 Fluid Lymphocytes % 70.0 08/14/18 19:50 Fluid Monocytes % 5.0 % 08/14/18 19:50 Fluid Macrophages % 2.0 % 08/14/18 19:50 Fld Mesothelial Cell % 5.0 % 08/14/18 19:50 Fluid Crystals NONE SEEN 08/14/18 19:50 Influenza A (Rapid) Negative (Negative) 08/14/18 19:12 Influenza B (Rapid) Negative (Negative) 08/14/18 19:12 - Procedures Procedures: Procedures CATARAC PHACOEMULS/ASPIR (10/24/14) CLOSED RED-INT FIX FEMUR (03/10/14) INSERT LENS AT CATAR EXT (10/24/14) ABX Reporting Has patient been on IV antibiotics over the past 48 hours?: Yes Current Medications - Current Medications Current Medications: Laboratory Last Values WBC 12.4 x10^3/uL (4.8-10.8) H 08/16/18 04:40 RBC 3.56 10^6/uL (4.20-5.40) L 08/16/18 04:40 Hgb 11.2 g/dL (12.0-16.0) L 08/16/18 04:40 Hct 33.4 % (37.0-47.0) L 08/16/18 04:40 MCV 93.7 fL (81.0-99.0) 08/16/18 04:40 MCH 31.3 pg (27.0-31.0) H 08/16/18 04:40 MCHC 33.4 g/dL (32.0-36.0) 08/16/18 04:40 RDW 14.6 % (12.0-15.0) 08/16/18 04:40 Plt Count 181 10^3/uL (130-450) 08/16/18 04:40 MPV 8.3 fL (7.9-10.8) 08/16/18 04:40 Neut # (Auto) Not Reportable 08/14/18 18:05 Lymph # (Auto) Not Reportable 08/14/18 18:05 Warren # (Auto) Not Reportable 08/14/18 18:05 Eos # (Auto) Not Reportable 08/14/18 18:05 Baso # (Auto) Not Reportable 08/14/18 18:05 Absolute Nucleated RBC Not Reportable 08/14/18 18:05 Total Counted 100 08/14/18 18:05 Band Neuts % (Manual) 3 % (0-10) 08/14/18 18:05 Reactive Lymphs % (Man) 3 % 08/14/18 18:05 Abnorm Lymph % (Manual) 0 % 08/14/18 18:05 Metamyelocytes % 5 % (-0) H 08/14/18 18:05 Myelocytes % 1 % (-0) H 08/14/18 18:05 Nucleated RBC % Not Reportable 08/14/18 18:05 Neutrophils # (Manual) 13.7 10^3/uL (1.5-6.6) H 08/14/18 18:05 Lymphocytes # (Manual) 1.4 10^3/uL (1.5-3.5) L 08/14/18 18:05 Monocytes # (Manual) 3.1 10^3/uL (0.0-1.0) H 08/14/18 18:05 Eosinophils # (Manual) 0.0 10^3/uL (0-0.7) 08/14/18 18:05 Basophils # (Manual) 0.0 10^3/uL (0-0.1) 08/14/18 18:05 Differential Comment MANUAL DIFFERENTIAL 08/14/18 18:05 Manual Slide Review Indicated 08/14/18 18:05 Platelet Estimate NORMAL (130-450,000) (NORMAL) 08/14/18 18:05 Platelet Morphology NORMAL APPEARANCE (NORMAL) 08/14/18 18:05 RBC Morph Micro Appear NORMAL APPEARANCE (NORMAL) 08/14/18 18:05 Sodium 132 mmol/L (135-145) L 08/16/18 04:40 Potassium 3.6 mmol/L (3.5-5.0) 08/16/18 04:40 Chloride 99 mmol/L (101-111) L 08/16/18 04:40 Carbon Dioxide 28 mmol/L (21-32) 08/16/18 04:40 Anion Gap 5.0 (6-13) L 08/16/18 04:40 BUN 14 mg/dL (6-20) 08/16/18 04:40 Creatinine 0.7 mg/dL (0.4-1.0) 08/16/18 04:40 Estimated GFR (MDRD) 79 (>89) L 08/16/18 04:40 Glucose 100 mg/dL (70-100) 08/16/18 04:40 Lactic Acid 1.2 mmol/L (0.5-2.2) 08/14/18 20:00 Calcium 8.2 mg/dL (8.5-10.3) L 08/16/18 04:40 Magnesium 2.0 mg/dL (1.7-2.8) 08/14/18 18:05 Total Bilirubin 1.0 mg/dL (0.2-1.0) 08/14/18 18:05 AST 49 IU/L (10-42) H 08/14/18 18:05 ALT 85 IU/L (10-60) H 08/14/18 18:05 Alkaline Phosphatase 163 IU/L (42-121) H 08/14/18 18:05 B-Natriuretic Peptide 107 pg/mL (5-100) H 08/14/18 18:05 Total Protein 7.3 g/dL (6.7-8.2) 08/14/18 18:05 Albumin 3.9 g/dL (3.2-5.5) 08/14/18 18:05 Globulin 3.4 g/dL (2.1-4.2) 08/14/18 18:05 Albumin/Globulin Ratio 1.1 (1.0-2.2) 08/14/18 18:05 Lipase 23 U/L (22-51) 08/14/18 18:05 Urine Color YELLOW 08/14/18 21:00 Urine Clarity CLOUDY (CLEAR) 08/14/18 21:00 Urine pH 6.0 PH (5.0-7.5) 08/14/18 21:00 Ur Specific [place] >=1.030 (1.002-1.030) H 08/14/18 21:00 Urine Protein 100 mg/dL (NEGATIVE) H 08/14/18 21:00 Urine Glucose (UA) NEGATIVE mg/dL (NEGATIVE) 08/14/18 21:00 Urine Ketones TRACE mg/dL (NEGATIVE) 08/14/18 21:00 Urine Occult Blood MODERATE (NEGATIVE) H 08/14/18 21:00 Urine Nitrite NEGATIVE (NEGATIVE) 08/14/18 21:00 Urine Bilirubin NEGATIVE (NEGATIVE) 08/14/18 21:00 Urine Urobilinogen 0.2 (NORMAL) E.U./dL (NORMAL) 08/14/18 21:00 Ur Leukocyte Esterase NEGATIVE (NEGATIVE) 08/14/18 21:00 Urine RBC 6-10 /HPF (0-5) H 08/14/18 21:00 Urine WBC 0-3 /HPF (0-5) 08/14/18 21:00 Ur Squamous Epith Cells FEW Squamous (<= Few) 08/14/18 21:00 Amorphous Sediment Moderate /LPF 08/14/18 21:00 Urine Bacteria Rare /HPF (None Seen) 08/14/18 21:00 Ur Microscopic Review INDICATED 08/14/18 21:00 Urine Culture Comments NOT INDICATED 08/14/18 21:00 Fluid Source PLEURAL 08/14/18 19:50 Fluid Color BLOODY 08/14/18 19:50 Fluid Clarity CLOUDY 08/14/18 19:50 Fluid WBC 978 /mm^3 08/14/18 19:50 Fluid RBC 399452 /mm^3 08/14/18 19:50 Fluid Neutrophils % 18.0 % 08/14/18 19:50 Fluid Lymphocytes % 70.0 08/14/18 19:50 Fluid Monocytes % 5.0 % 08/14/18 19:50 Fluid Macrophages % 2.0 % 08/14/18 19:50 Fld Mesothelial Cell % 5.0 % 08/14/18 19:50 Fluid Crystals NONE SEEN 08/14/18 19:50 Influenza A (Rapid) Negative (Negative) 08/14/18 19:12 Influenza B (Rapid) Negative (Negative) 08/14/18 19:12
[2018-08-16 16:59] LABS: VANCOMYCIN,TROUGH 5.7 ug/mL (10.0-20.0)
[2018-08-16] MEDS ORDERED: VANCOMYCIN INJ 500 MG in SODIUM CHLORIDE 0.9% MINIBAG 100 ML IV SCH (18:00)
[2018-08-16] MEDS ORDERED: INSULIN GLARGINE 300 UNIT/3 ML PEN SUBQ ONE (20:02)
[2018-08-16] MEDS: levoFLOXacin 750 MG/150 ML 750 MG/150 ML BAG IV SCH (21:15)
[2018-08-16] MEDS: HYDROcod/ACETAM 5/325 MG TABLET PO PRN (21:15)
[2018-08-17] MEDS: CEFEPIME 2 GM in SODIUM CHLORIDE 0.9% MINIBAG 100 ML IV SCH ×2 (01:04→10:14)
[2018-08-17] MEDS: SODIUM CHLORIDE FLUSH 0.9% 10 ML SYRINGE IVP SCH ×2 (04:25→10:14)
[2018-08-17 05:31] LABS: MEAN CORPUSCULAR HEMOGLOBIN 31.1 pg (27.0-31.0); MEAN CORPUSCULAR HGB CONC 33.3 g/dL (32.0-36.0); MEAN CORPUSCULAR VOLUME 93.2 fL (81.0-99.0); RED BLOOD COUNT 3.86 10^6/uL (4.20-5.40); RED CELL DISTRIBUTION WIDTH 14.5 % (12.0-15.0); WHITE BLOOD COUNT 11.6 x10^3/uL (4.8-10.8)
[2018-08-17 05:35] LABS: CALCIUM 8.6 mg/dL (8.5-10.3); CREATININE 0.7 mg/dL (0.4-1.0)
[2018-08-17] MEDS ORDERED: VANCOMYCIN INJ 1.25 GM in SODIUM CHLORIDE 0.9% 250 ML IV SCH (06:00)
[2018-08-17] MEDS: LEVOTHYROXINE 25 MCG TABLET PO SCH (06:58)
--- NOTE | 2018-08-17 09:42 | XRAY Report ---
Reason: F/U thoracentesis, size of effusion and infiltrate Procedure Date: 08/17/2018 Accession Number: [id number] / [id number] Procedure: XR - Chest 1 View X-Ray CPT Code: 43649 FULL RESULT: EXAM: CHEST RADIOGRAPHY EXAM DATE: 08/17/2018 09:23 AM. CLINICAL HISTORY: Follow up thoracentesis, size of effusion and infiltrate. COMPARISON: CHEST 1 VIEW 08/16/2018 9:19 AM. TECHNIQUE: 1 view. FINDINGS: Lungs/Pleura: There is a small, bordering on small to moderate size left-sided pleural effusion, decreased in size compared to study of 08/16/2018. There is adjacent left basilar opacity which is most likely passive atelectasis. Possible developing airspace opacity is noted in the right upper lung. No extraventilatory air. Mediastinum: Within exam limitations, the cardiomediastinal contour is normal. Other: None. IMPRESSION: 1. Persistent at least small in size left effusion, decreased in size compared to 08/16/2018. 2. Possible developing airspace opacity right upper lobe. RADIA
[2018-08-17] MEDS: LORazepam 0.5 MG TABLET PO PRN (10:12)
[2018-08-17] MEDS: buPROPion SR 100 MG TABLET PO SCH (10:12)
[2018-08-17] MEDS: ACETAMINOPHEN 500 MG TABLET PO PRN (10:12)
[2018-08-17] MEDS: LIDOCAINE PATCH 5% TOP SCH (10:13)
[2018-08-17] MEDS: MULTIVITAMIN TABLET PO SCH (10:13)
[2018-08-17] MEDS: FAMOTIDINE 20 MG TABLET PO SCH (10:13)
[2018-08-17] MEDS: CHOLECALCIFEROL 1,000 UNIT TABLET PO SCH (10:13)
--- NOTE | 2018-08-17 11:33 | Discharge Plan ---
"Discharge Plan for SNF / [facility] - Discharge Plan And Transition Orders Disposition: Home, Self Care Condition: Fair Allergies and Adverse Reactions: Allergies Allergy/AdvReac Type Severity Reaction Status Date / Time Penicillins Allergy Intermediate swelling Verified 08/14/18 16:43 wheat AdvReac Intermediate malaise, Verified 08/14/18 16:43 headache, dizziness phenyl derivatives Allergy Unknown Uncoded 07/12/18 16:54 - SNF / CARE HOME Transition Orders Admit to (Facility): [facility] Under the care of (Name): Zeyad Ayoub MD Discharge Diagnosis: 1. Healthcare associated pneumonia 2. Pleural effusion on the left 3. Rib fractures 4. Hypothyroidism 5. Hyponatremia 6. Mild cognitive impairment 7. Depression Medicare Certification Statement: I certify that Post Hospital fdc care is medically necessary on a continuing basis for any of the conditions for which she/he is receiving care during hospitalization. Notify PCP of admission and forward orders to primary provider for signature. Other Notification Orders: Call PCP immediately if patient develops dyspnea, chest pain/tightness or edema. House Bowel Program: Yes Additional Bowel Program Orders: If no BM after 2 days, nurse may give M.O.M. 30ml PO PRN and/or ducolax Supp 1 CA and/or WILBER 250mg P.O., and/or senna 1-2 tabs PO. On day 3 nurse may give repeat above order until residents constipation is resolved. Annual Influenza Vaccine (between Jun 04 and January 01): Yes Two-step PPD per [facility] [id number] or approved exception documents: Yes Treatments & Other Orders: Continue oral levaquin to treat pneumonia for 7 more days. Continue incentive spirometry every 2 hours while awake. Oxygen Orders: None Lab Tests or X-ray Orders: Repeat chest xray in 2 weeks to ensure pneumnoia and effusion are resolving. Medication Orders: PLEASE REFER TO THE DISCHARGE MEDICATION LIST. Insulin Orders?: No - Medications New Prescriptions: Levofloxacin [Levaquin] 750 mg PO DAILY #7 tablet Lidocaine Patch 5% [Lidoderm Patch] 1 patch TOP DAILY #10 patch - Diet Type: Geriatric Texture: Regular Liquids: Thin May have monthly special meal: Yes - Therapies | Activity Therapy: Evaluation | Treat if indicated: PT Rehabilitation Potential: Maximize functional status Activity: Activity as Tolerated Weight Bearing: Full Weight Assistance Devices: Walker Follow Up: Patient should get a follow up chest x ray in 2 weeks to ensure resolution of the effusion and pneumonia."
[2018-08-17] MEDS: POLYETHYLENE GLYCOL 3350 17 GM PACKET PO SCH (12:14)
--- NOTE | 2018-08-17 12:55 | DISCHARGE SUMMARY ---
Discharge Summary Admit Date: 08/14/18 Discharge Date: 08/17/18 Discharging Provider: Gentry Sanchez MD Primary Care Provider: Zeyad Ayoub MD Code Status: Do Not Attempt Resuscitation Condition at Discharge: Fair Discharge Disposition: 01 Home, Self Care Discharge Facility Name: [facility] - DIAGNOSES Admission Diagnoses: 1. Pleural effusion on left 2. Shortness of breath at rest 3. Fever 4. Leukocytosis 5. Flail chest 6. Hypothyroidism Discharge Diagnoses with Status of Each Condition: 1. Healthcare associated pneumonia: Stable 2. Pleural effusion on left: Stable 3. Rib fractures: Stable 4. Hypothyroidism: Stable 5. Hyponatremia: Stable - HPI History of Present Illness: Patient is an 87-year-old female with past medical history of hypothyroidism, as well as fractures of multiple ribs on the left side in July [address] sent to [facility] ([place], [place]) or (pt is unsure - but she was sent to [facility] for care) for some concerns of her flail chest secondary to these rib fractures, subsequently transferred to [facility] who has continued to have difficulty with chest wall pain and shortness of breath. She was evaluated by the MD at the nursing facility who had arranged for the patient to have an outpatient thoracentesis for a probable pleural effusion. However in the last 24 hours the patient's pain has continued to increase and she has had more difficulty breathing and so the patient was sent to the emergency department for further more acute evaluation. In the emergency department the patient was found to be in pain but not acutely hypoxic. She did have some wheezing which is something that has been present while in the alf and has been managed with breathing treatments there, and responded to nebulizer treatments that she would have had in the nursing facility anyway. The remainder of the workup was remarkable for pleural effusion on the chest x-ray, a elevated white blood cell count of 19, and a moderate fever. A thoracentesis was done for primarily therapeutic purposes but also for fluid analysis by the ED physician with some suggestion of possible infectious etiology with an elevated white blood cell count with further results on the fluid analysis is still pending. Patient does not appear to have any obvious signs of infection, she is not septic with a normal lactic acid and her vital signs are relatively stable with hypertension. Chest x-ray does not demonstrate any evidence of infection but she was given a dose of azithromycin for possible underlying pneumonia given the fever and white blood cell count. We were called to admit the patient under our services for possible treatment of pneumonia pending clinical course, and possible chest tube if effusion shows infection which would necessitate further drainage versus noninfectious which could potentially be treated conservatively. - HOSPITAL COURSE Hospital Course: The patient was hospitalized at [facility] due to multiple rib fractures about 1 month prior to presentation to the emergency department. The patient was discharged from [facility] to [facility] for subacute rehab. While there the patient was found to have a left pleural effusion which had slightly increased in size over 2 weeks. The patient was seen by Dr. Ayoub at [facility] and was scheduled for a thoracentesis to try to help her increasing dyspnea and left-sided chest pain that she was having while at [facility]. Prior to being able to go for the thoracentesis the patient had developed worsening dyspnea and increasing pain in her back which was getting worse over 2 days. She was referred to the emergency department for further evaluation. In the emergency department the patient underwent a thoracentesis with which the patient seemed to have some relief of her symptoms of dyspnea. She seemed to be oxygenating well. However while in the emergency department she developed a fever and had an elevated white blood cell count in the pleural fluid which was also cloudy. The patient also had an elevated peripheral white blood cell count. There was concern for early pneumonia or empyema and therefore patient was admitted to the hospital. The patient was placed on broad-spectrum IV antibiotics with cefepime Levaquin and vancomycin. She was treated for healthcare associated pneumonia given her recent hospitalization. The patient had continued improvement in her respiratory symptoms while she was hospitalized and was weaned off of oxygen. She did spike a fever of 38.4 on 08/14/2018 and 38.0 on 08/14/2018 but remained afebrile for the remainder of her hospitalization. She had repeat imaging with daily chest x-rays which showed a decreasing left pleural effusion. The patient had clinical improvement for her pneumonia. The patient was encouraged to use an incentive spirometer while she was hospitalized. The patient's leukocytosis improved from 19.3 down to 11.6 by the time of discharge. The patient had negative blood cultures and her Gram stain from her thoracentesis was also negative. The patient was transitioned to oral antibiotics and discharged to [facility] with oral Levaquin which she will take for 7 more days to complete a course of antibiotics. It was recommended for the patient to get a repeat chest x-ray in 2 weeks and follow-up with her primary care physician. She was in stable condition at the time of discharge. - ALLERGIES Allergies/Adverse Reactions: Allergies Allergy/AdvReac Type Severity Reaction Status Date / Time Penicillins Allergy Intermediate swelling Verified 08/14/18 16:43 wheat AdvReac Intermediate malaise, Verified 08/14/18 16:43 headache, dizziness phenyl derivatives Allergy Unknown Uncoded 07/12/18 16:54 - MEDICATIONS Home Medications: Ambulatory Orders Medication Instructions Recorded Confirmed Acetaminophen [Tylenol Extra 1,000 mg PO Q8HR PRN 08/14/18 08/14/18 Strength] Cholecalciferol (Vitamin D3) 1,000 unit PO DAILY 08/14/18 08/14/18 [Vitajoy Daily D] Multivitamin [Multiple Vitamins] 1 tab PO DAILY 08/14/18 08/14/18 buPROPion HCl [Bupropion HCl] 100 mg PO BID 08/14/18 08/15/18 Eucalyptus/Menthol [Cough Drops] 1 lozenge PO DAILY PRN 08/15/18 08/15/18 Levothyroxine Sodium 50 mcg PO DAILY 08/15/18 08/15/18 Levofloxacin [Levaquin] 750 mg PO DAILY #7 tablet 08/17/18 Lidocaine Patch 5% [Lidoderm Patch] 1 patch TOP DAILY #10 patch 08/17/18 - PHYSICAL EXAM AT DISCHARGE General Appearance: positive: No acute distress, Alert, Other (Mild dementia) Eyes Bilateral: positive: Normal inspection, PERRL, EOMI, No lid inflammation, Conjunctivae nml, No scleral icterus ENT: positive: ENT inspection nml, Pharynx nml, No signs of dehydration. negative: Purulent nasal drainage, Pharyngeal erythema, Oral lesions Neck: positive: Nml inspection, Thyroid nml, No JVD, Trachea midline. negative: Thyromegaly, Lymphadenopathy (R), Lymphadenopathy (L), Stiff neck, Carotid bruit, Tracheal deviation Respiratory: positive: Chest non-tender, No respiratory distress, Breath sounds nml, Rales (Mild left sided), Rhonchi (Mild on left). negative: Wheezes Cardiovascular: positive: Regular rate & rhythm, No murmur, No gallop Peripheral Pulses: positive: 2+ Abdomen: positive: Non-tender, No organomegaly, Nml bowel sounds, No distention. negative: Guarding, Rebound, Hepatomegaly Back: positive: Nml inspection. negative: CVA tenderness (R), CVA tenderness (L) Skin: positive: Color nml, No rash, Warm. negative: Cyanosis, Diaphoresis, Pallor, Skin rash Extremities: positive: Non-tender, Full ROM, Nml appearance, No pedal edema Neurologic/Psychiatric: positive: Oriented x3, CN's nml (2-12), Motor nml, Sensation nml, Mood/affect nml - LABS Result Diagrams: 08/17/18 04:54 08/17/18 04:54 Other Lab Results: Laboratory Results WBC 11.6 x10^3/uL (4.8-10.8) H 08/17/18 04:54 RBC 3.86 10^6/uL (4.20-5.40) L 08/17/18 04:54 Hgb 12.0 g/dL (12.0-16.0) 08/17/18 04:54 Hct 36.0 % (37.0-47.0) L 08/17/18 04:54 MCV 93.2 fL (81.0-99.0) 08/17/18 04:54 MCH 31.1 pg (27.0-31.0) H 08/17/18 04:54 MCHC 33.3 g/dL (32.0-36.0) 08/17/18 04:54 RDW 14.5 % (12.0-15.0) 08/17/18 04:54 Plt Count 208 10^3/uL (130-450) 08/17/18 04:54 MPV 8.0 fL (7.9-10.8) 08/17/18 04:54 Neut # (Auto) Not Reportable 08/14/18 18:05 Lymph # (Auto) Not Reportable 08/14/18 18:05 [place] # (Auto) Not Reportable 08/14/18 18:05 Eos # (Auto) Not Reportable 08/14/18 18:05 Baso # (Auto) Not Reportable 08/14/18 18:05 Absolute Nucleated RBC Not Reportable 08/14/18 18:05 Total Counted 100 08/14/18 18:05 Band Neuts % (Manual) 3 % (0-10) 08/14/18 18:05 Reactive Lymphs % (Man) 3 % 08/14/18 18:05 Abnorm Lymph % (Manual) 0 % 08/14/18 18:05 Metamyelocytes % 5 % (-0) H 08/14/18 18:05 Myelocytes % 1 % (-0) H 08/14/18 18:05 Nucleated RBC % Not Reportable 08/14/18 18:05 Neutrophils # (Manual) 13.7 10^3/uL (1.5-6.6) H 08/14/18 18:05 Lymphocytes # (Manual) 1.4 10^3/uL (1.5-3.5) L 08/14/18 18:05 Monocytes # (Manual) 3.1 10^3/uL (0.0-1.0) H 08/14/18 18:05 Eosinophils # (Manual) 0.0 10^3/uL (0-0.7) 08/14/18 18:05 Basophils # (Manual) 0.0 10^3/uL (0-0.1) 08/14/18 18:05 Differential Comment MANUAL DIFFERENTIAL 08/14/18 18:05 Manual Slide Review Indicated 08/14/18 18:05 Platelet Estimate NORMAL (130-450,000) (NORMAL) 08/14/18 18:05 Platelet Morphology NORMAL APPEARANCE (NORMAL) 08/14/18 18:05 RBC Morph Micro Appear NORMAL APPEARANCE (NORMAL) 08/14/18 18:05 Sodium 132 mmol/L (135-145) L 08/17/18 04:54 Potassium 3.4 mmol/L (3.5-5.0) L 08/17/18 04:54 Chloride 97 mmol/L (101-111) L 08/17/18 04:54 Carbon Dioxide 27 mmol/L (21-32) 08/17/18 04:54 Anion Gap 8.0 (6-13) 08/17/18 04:54 BUN 13 mg/dL (6-20) 08/17/18 04:54 Creatinine 0.7 mg/dL (0.4-1.0) 08/17/18 04:54 Estimated GFR (MDRD) 79 (>89) L 08/17/18 04:54 Glucose 117 mg/dL (70-100) H 08/17/18 04:54 Lactic Acid 1.2 mmol/L (0.5-2.2) 08/14/18 20:00 Calcium 8.6 mg/dL (8.5-10.3) 08/17/18 04:54 Magnesium 2.0 mg/dL (1.7-2.8) 08/14/18 18:05 Total Bilirubin 1.0 mg/dL (0.2-1.0) 08/14/18 18:05 AST 49 IU/L (10-42) H 08/14/18 18:05 ALT 85 IU/L (10-60) H 08/14/18 18:05 Alkaline Phosphatase 163 IU/L (42-121) H 08/14/18 18:05 B-Natriuretic Peptide 107 pg/mL (5-100) H 08/14/18 18:05 Total Protein 7.3 g/dL (6.7-8.2) 08/14/18 18:05 Albumin 3.9 g/dL (3.2-5.5) 08/14/18 18:05 Globulin 3.4 g/dL (2.1-4.2) 08/14/18 18:05 Albumin/Globulin Ratio 1.1 (1.0-2.2) 08/14/18 18:05 Lipase 23 U/L (22-51) 08/14/18 18:05 Urine Color YELLOW 08/14/18 21:00 Urine Clarity CLOUDY (CLEAR) 08/14/18 21:00 Urine pH 6.0 PH (5.0-7.5) 08/14/18 21:00 Ur Specific [place] >=1.030 (1.002-1.030) H 08/14/18 21:00 Urine Protein 100 mg/dL (NEGATIVE) H 08/14/18 21:00 Urine Glucose (UA) NEGATIVE mg/dL (NEGATIVE) 08/14/18 21:00 Urine Ketones TRACE mg/dL (NEGATIVE) 08/14/18 21:00 Urine Occult Blood MODERATE (NEGATIVE) H 08/14/18 21:00 Urine Nitrite NEGATIVE (NEGATIVE) 08/14/18 21:00 Urine Bilirubin NEGATIVE (NEGATIVE) 08/14/18 21:00 Urine Urobilinogen 0.2 (NORMAL) E.U./dL (NORMAL) 08/14/18 21:00 Ur Leukocyte Esterase NEGATIVE (NEGATIVE) 08/14/18 21:00 Urine RBC 6-10 /HPF (0-5) H 08/14/18 21:00 Urine WBC 0-3 /HPF (0-5) 08/14/18 21:00 Ur Squamous Epith Cells FEW Squamous (<= Few) 08/14/18 21:00 Amorphous Sediment Moderate /LPF 08/14/18 21:00 Urine Bacteria Rare /HPF (None Seen) 08/14/18 21:00 Ur Microscopic Review INDICATED 08/14/18 21:00 Urine Culture Comments NOT INDICATED 08/14/18 21:00 Fluid Source PLEURAL 08/14/18 19:50 Fluid Color BLOODY 08/14/18 19:50 Fluid Clarity CLOUDY 08/14/18 19:50 Fluid WBC 978 /mm^3 08/14/18 19:50 Fluid RBC [id number] /mm^3 08/14/18 19:50 Fluid Neutrophils % 18.0 % 08/14/18 19:50 Fluid Lymphocytes % 70.0 08/14/18 19:50 Fluid Monocytes % 5.0 % 08/14/18 19:50 Fluid Macrophages % 2.0 % 08/14/18 19:50 Fld Mesothelial Cell % 5.0 % 08/14/18 19:50 Fluid Crystals NONE SEEN 08/14/18 19:50 Last Dose Date 08-16-18 08/16/18 16:40 Last Dose Time 1800 08/16/18 16:40 Vancomycin Trough 5.7 ug/mL (10.0-20.0) L 08/16/18 16:40 Influenza A (Rapid) Negative (Negative) 08/14/18 19:12 Influenza B (Rapid) Negative (Negative) 08/14/18 19:12 - DIAGNOSTIC IMAGING Diagnostic Imaging Results: Final report reviewed Diagnostic Imaging Results Comments: Chest x-ray 08/14/2018 Impression: Stable left effusion and bibasilar airspace disease Chest x-ray 08/14/2018 Impression: Decrease in left effusion. No postprocedural pneumothorax. Chest x-ray 08/15/2018 Impression: 1. Left pleural effusion with underlying infiltrate or atelectasis similar. 2. Patchy infiltrate right mid lower lateral chest, left suprahilar region. Chest x-ray 08/16/2018 Impression: No pneumothorax Chest x-ray 08/17/2018 Impression: 1. Persistent at least small in size left effusion, decreased in size compared to 08/16/2018. 2. Possible developing airspace opacity right upper lobe. - FOLLOW UP Follow Up: Patient was treated for healthcare associated pneumonia with IV antibiotics and underwent a thoracentesis for removal of pleural fluid from the left lung. She had improvement in her symptoms and was weaned off of oxygen. The patient's white blood cell count improved and she had significant clinical improvement. She was seen by physical therapy and was recommended to return home with no further need for rehabilitation with physical therapy. She was discharged to [facility] assisted living facility. She will continue on oral antibiotics with Levaquin for 7 additional days to complete treatment for pneumonia. She will need a follow-up chest x-ray in 2 weeks to ensure that pleural effusion and pneumonia has resolved. - TIME SPENT Time Spent in Discharge (Minutes): 45
[2018-08-17 16:04] VITALS: BP 158/86
== END 2018-08-17 15:50 | disposition home or self-care (01) | DRG 194 ==
LOC: EDUNIT# → ED 16:28 → MS3 20:37
PROVIDERS: ADMIT Family Medicine Sports Medicine; ATTEND Internal Medicine
DX: J90 Pleural effusion, not elsewhere classified (principal); J18.1 Lobar pneumonia, unspecified organism; J45.909 Unspecified asthma, uncomplicated; S22.42XD Multiple fractures of ribs, left side, subsequent encounter for fracture with routine healing; Z91.81 History of falling; J18.9 Pneumonia, unspecified organism; J91.8 Pleural effusion in other conditions classified elsewhere; E87.1 Hypo-osmolality and hyponatremia; E03.9 Hypothyroidism, unspecified; S22.5XXD Flail chest, subsequent encounter for fracture with routine healing; I10 Essential (primary) hypertension; Y95 Nosocomial condition; F03.90 Unspecified dementia, unspecified severity, without behavioral disturbance, psychotic disturbance, mood disturbance, and anxiety; F32.9 Major depressive disorder, single episode, unspecified; Z86.11 Personal history of tuberculosis; Z86.14 Personal history of Methicillin resistant Staphylococcus aureus infection; Z85.038 Personal history of other malignant neoplasm of large intestine
CPT/HCPCS: 32554; 36415; 71045; 71046; 80048; 80053; 80202; 81001; 81003; 83605; 83690; 83735; 83880; 85025; 85027; 87040; 87070; 87086; 87205; 87275; 87276; 89051; 89060; 94640; 96365; 96375; 99284; 99285

== ENCOUNTER 2018-08-23 01:48 | Outpatient (CLI) | payer MEDICARE, OTHER | END 2018-08-23 01:49 | disposition critical access hospital (66) | LOC: EMS 01:48 | PROVIDERS: ATTEND Surgery | DX: M79.605 Pain in left leg (principal) | CPT/HCPCS: A0425; A0429 ==

== ENCOUNTER 2018-08-23 02:04 | Emergency (ER) | payer MEDICARE, OTHER ==
--- NOTE | 2018-08-23 02:26 | ED Physician Documentation ---
History of Present Illness - Stated complaint Stated Complaint: L THIGH PAIN - Chief complaint Chief Complaint: General - History obtained from History obtained from: Patient, EMS - History of Present Illness Timing: How many hours ago (2) Pain level max: 5 Pain level now: 3 Improved by: rest Worsened by: movement - Additonal information Additional information: 87-year-old female who states she awoke from sleep with left thigh pain. Took Tylenol without relief. Called 911 to bring her here. Denies any recent falls or injuries. She did fall last week and has rib fractures, using lidocaine patches for this. Review of Systems Constitutional: denies: Fever GI: denies: Vomiting Skin: denies: Rash Musculoskeletal: denies: Neck pain, Back pain Neurologic: denies: Headache PD PAST MEDICAL HISTORY - Past Medical History Cardiovascular: None Respiratory: Tuberculosis Endocrine/Autoimmune: HyPOthyroidism GI: Other : Incontinence HEENT: Other Psych: Depression Musculoskeletal: Osteoarthritis, Chronic back pain Derm: Other - Past Surgical History Past Surgical History: Yes General: Appendectomy, Bowel surgery Ortho: Knee replacement HEENT: Cataracts, Tonsil/Adenoidectomy - Present Medications Home Medications: Ambulatory Orders Medication Instructions Recorded Confirmed Acetaminophen [Tylenol Extra 1,000 mg PO Q8HR PRN 08/14/18 08/14/18 Strength] Cholecalciferol (Vitamin D3) 1,000 unit PO DAILY 08/14/18 08/14/18 [Vitajoy Daily D] Multivitamin [Multiple Vitamins] 1 tab PO DAILY 08/14/18 08/14/18 buPROPion HCl [Bupropion HCl] 100 mg PO BID 08/14/18 08/15/18 Eucalyptus/Menthol [Cough Drops] 1 lozenge PO DAILY PRN 08/15/18 08/15/18 Levothyroxine Sodium 50 mcg PO DAILY 08/15/18 08/15/18 Levofloxacin [Levaquin] 750 mg PO DAILY #7 tablet 08/17/18 Lidocaine Patch 5% [Lidoderm Patch] 1 patch TOP DAILY #10 patch 08/17/18 - Allergies Allergies/Adverse Reactions: Allergies Allergy/AdvReac Type Severity Reaction Status Date / Time Penicillins Allergy Intermediate swelling Verified 08/23/18 02:09 wheat AdvReac Intermediate malaise, Verified 08/23/18 02:09 headache, dizziness phenyl derivatives Allergy Unknown Uncoded 08/23/18 02:09 - Social History Does the pt smoke?: No Smoking Status: Never smoker Does the pt drink ETOH?: Yes Does the pt have substance abuse?: No - Immunizations Immunizations are current?: Yes - POLST Patient has POLST: No PD ED PE NORMAL - Vitals Vital signs reviewed: Yes - General General: Alert and oriented X 3, No acute distress - HEENT HEENT: Moist mucous membranes - Neck Neck: Supple, no meningeal sign - Cardiac Cardiac: RRR - Respiratory Respiratory: No respiratory distress, Clear bilaterally - Derm Derm: Warm and dry - Extremities Extremities: Other (TTP over mid L thigh. otherwise normal exam of the L leg. NVI.) - Neuro Neuro: Alert and oriented X 3 Results - Vitals Vitals: Vital Signs - 24 hr 08/23/18 02:05 Temperature 36.5 C Heart Rate 85 Respiratory 18 Rate Blood Pressure 177/85 H O2 Saturation 95 Oxygen O2 Source [] Nasal cannula O2 Source [] Nasal cannula O2 Source Room air - Rads (name of study) L femur xray Radiology: Prelim report reviewed, EMP read contemporaneously, See rad report (No acute abnormality) PD MEDICAL DECISION MAKING - ED course Complexity details: reviewed results, re-evaluated patient, considered differential, d/w patient ED course: Patient is an 87-year-old female with left thigh pain tonight. Given her normal dose of hydrocodone and symptoms resolved. Negative x-ray. Patient is nonambulatory at baseline but does use a wheelchair. We will have her follow-up with her doctor for further care. Patient counseled regarding signs and symptoms for which I believe and urgent re-evaluation would be necessary. Patient with good understanding of and agreement to plan and is comfortable shawna g home at this time This document was made in part using voice recognition software. While efforts are made to proofread this document, sound alike and grammatical errors may occur. Departure - Departure Disposition: 01 Home, Self Care Clinical Impression: Acute thigh pain Qualifiers: Laterality: left Qualified Code(s): M79.652 - Pain in left thigh Condition: Good Instructions: ED Acute Pain [facility] Follow-Up: Zeyad Ayoub DO [Primary Care Provider] - Within 1 week Comments: Follow-up with your doctor for further care. I would recommend using the hydrocodone rather than plain Tylenol for her breakthrough pain as written on her MAR
[2018-08-23] MEDS: HYDROcod/ACETAM 5/325 MG TABLET PO STA (02:44)
--- NOTE | 2018-08-23 03:10 | XRAY Report ---
Reason: L thigh pain Procedure Date: 08/23/2018 Accession Number: [id number] / [id number] Procedure: XR - Femur 2V LT CPT Code: FULL RESULT: EXAM: LEFT FEMUR RADIOGRAPHY EXAM DATE: 08/23/2018 02:44 AM. CLINICAL HISTORY: L thigh pain. COMPARISON: None. TECHNIQUE: 2 views. FINDINGS: Bones: Normal. No fracture or bone lesion. Joints: Mild left hip osteoarthritis. Left knee replacement. No evident hardware complication. Soft Tissues: Normal. No soft tissue swelling. IMPRESSION: Previous left knee replacement. Mild left hip osteoarthritis. No evidence of acute fracture. RADIA
[2018-08-23 03:56] VITALS: BP 152/77
== END 2018-08-23 04:14 | disposition home or self-care (01) ==
LOC: ED 02:04
DX: M79.652 Pain in left thigh (principal)
CPT/HCPCS: 73552; 99283; A9270

== ENCOUNTER 2018-09-23 16:32 | Outpatient (CLI) | payer MEDICARE, OTHER | END 2018-09-23 16:40 | disposition critical access hospital (66) | LOC: EMS 16:32 | PROVIDERS: ATTEND Surgery | DX: R53.1 Weakness (principal); R41.0 Disorientation, unspecified; R35.0 Frequency of micturition | CPT/HCPCS: A0425; A0429 ==

== ENCOUNTER 2018-09-23 16:58 | Inpatient (IN) | payer MEDICARE, OTHER ==
--- NOTE | 2018-09-23 17:20 | ED Physician Documentation ---
History of Present Illness - Stated complaint Stated Complaint: WEAKNESS - Chief complaint Chief Complaint: General - History obtained from History obtained from: Patient, EMS - History of Present Illness Timing: Today (This is an 88-year-old woman who a few months ago had a ground- level fall with a flail chest. She was transferred to [facility]. Since then she has had issues with pneumonia and more recently over the last few days she comes from assisted living with a few days of urinary frequency and dysuria with some confusion. She somehow ended up on the ground today. She is not sure how, she does not remember. She feels like she hurts all over but nowhere specific. She does not know how long she was on the ground, but she thinks at least a few hours.) Review of Systems Ten Systems: 10 systems reviewed and negative Constitutional: denies: Fever, Chills Cardiac: denies: Chest pain / pressure, Palpitations Respiratory: reports: Dyspnea, Cough GI: denies: Abdominal Pain, Nausea, Vomiting PD PAST MEDICAL HISTORY - Past Medical History Cardiovascular: None Respiratory: Tuberculosis Endocrine/Autoimmune: HyPOthyroidism GI: Other : Incontinence HEENT: Other Psych: Depression Musculoskeletal: Osteoarthritis, Chronic back pain Derm: Other - Past Surgical History Past Surgical History: Yes General: Appendectomy, Bowel surgery Ortho: Knee replacement HEENT: Cataracts, Tonsil/Adenoidectomy - Present Medications Home Medications: Ambulatory Orders Medication Instructions Recorded Confirmed Acetaminophen [Tylenol Extra 1,000 mg PO Q8HR PRN 08/14/18 08/14/18 Strength] Cholecalciferol (Vitamin D3) 1,000 unit PO DAILY 08/14/18 08/14/18 [Vitajoy Daily D] Multivitamin [Multiple Vitamins] 1 tab PO DAILY 08/14/18 08/14/18 buPROPion HCl [Bupropion HCl] 100 mg PO BID 08/14/18 08/15/18 Eucalyptus/Menthol [Cough Drops] 1 lozenge PO DAILY PRN 08/15/18 08/15/18 Levothyroxine Sodium 50 mcg PO DAILY 08/15/18 08/15/18 Lidocaine Patch 5% [Lidoderm Patch] 1 patch TOP DAILY #10 patch 08/17/18 Docusate Sodium [Dss] 500 mg PO DAILY 09/23/18 09/23/18 Famotidine 20 mg PO BID 09/23/18 09/23/18 LORazepam [Ativan] 0.5 mg PO TID 09/23/18 09/23/18 Polyethylene Glycol 3350 17 gm PO DAILY 09/23/18 09/23/18 Senna [Senokot] 17.2 mg PO DAILY 09/23/18 09/23/18 - Allergies Allergies/Adverse Reactions: Allergies Allergy/AdvReac Type Severity Reaction Status Date / Time Penicillins Allergy Intermediate swelling Verified 09/23/18 17:17 wheat AdvReac Intermediate malaise, Verified 09/23/18 17:17 headache, dizziness phenyl derivatives Allergy Unknown Uncoded 09/23/18 17:17 - Social History Does the pt smoke?: No Smoking Status: Never smoker Does the pt drink ETOH?: Yes Does the pt have substance abuse?: No - Immunizations Immunizations are current?: Yes - POLST Patient has POLST: No PD ED PE NORMAL - Vitals Vital signs reviewed: Yes - General General: Alert and oriented X 3 (She is mildly confused but is alert and oriented x3.), No acute distress - HEENT HEENT: PERRL, EOMI - Neck Neck: Supple, no meningeal sign, No bony TTP - Cardiac Cardiac: RRR, No murmur - Respiratory Respiratory: No respiratory distress, Other (Diminished breath sounds throughout,) - Abdomen Abdomen: Soft, Non tender - Back Back: No CVA TTP, No spinal TTP - Extremities Extremities: Other (There is a bruise on the left anterior al and she has some kind of diffuse tenderness of both legs without firm compartments.) - Neuro Neuro: Alert and oriented X 3 Eye Opening: Spontaneous Motor: Obeys Commands Verbal: Confused GCS Score: 14 - Psych Psych: Normal mood, Normal affect Results - Vitals Vitals: Vital Signs - 24 hr 09/23/18 09/23/18 17:11 19:25 Temperature 36.3 C L Heart Rate 80 69 Respiratory 16 18 Rate Blood Pressure 164/78 H 176/87 H O2 Saturation 98 99 Oxygen O2 Source [] Nasal cannula O2 Source [] Nasal cannula O2 Source Room air - Labs Labs: Laboratory Tests 09/23/18 09/23/18 09/23/18 18:00 18:00 18:00 WBC 12.4 H RBC 4.33 Hgb 13.8 Hct 41.3 MCV 95.4 MCH 31.8 H MCHC 33.3 RDW 15.8 H Plt Count 164 MPV 8.6 Neut # (Auto) Not Reportable Lymph # (Auto) Not Reportable Swain # (Auto) Not Reportable Eos # (Auto) Not Reportable Baso # (Auto) Not Reportable Absolute Nucleated RBC Not Reportable Total Counted 100 Band Neuts % (Manual) 7 Reactive Lymphs % (Man) 3 Abnorm Lymph % (Manual) 0 Nucleated RBC % Not Reportable Neutrophils # (Manual) 8.2 H Lymphocytes # (Manual) 2.2 Monocytes # (Manual) 1.9 H Eosinophils # (Manual) 0.1 Basophils # (Manual) 0.0 Differential Comment MANUAL DIFFERENTIAL Platelet Estimate NORMAL (130-450,000) Platelet Morphology NORMAL APPEARANCE RBC Morph Micro Appear 2+ POIKILOCYTOSIS PT 12.5 INR 1.1 Sodium 137 Potassium 3.3 L Chloride 99 L Carbon Dioxide 28 Anion Gap 10.0 BUN 21 H Creatinine 0.9 Estimated GFR (MDRD) 59 L Glucose 98 Calcium 8.9 Total Bilirubin 0.8 AST 40 ALT 30 Alkaline Phosphatase 69 Total Creatine Kinase 863 H Total Protein 7.1 Albumin 4.3 Globulin 2.8 Albumin/Globulin Ratio 1.5 Lipase 24 Urine Color Urine Clarity Urine pH Ur Specific [place] Urine Protein Urine Glucose (UA) Urine Ketones Urine Occult Blood Urine Nitrite Urine Bilirubin Urine Urobilinogen Ur Leukocyte Esterase Urine RBC Urine WBC Ur Squamous Epith Cells Urine Bacteria Ur Microscopic Review Urine Culture Comments 09/23/18 18:15 WBC RBC Hgb Hct MCV MCH MCHC RDW Plt Count MPV Neut # (Auto) Lymph # (Auto) Swain # (Auto) Eos # (Auto) Baso # (Auto) Absolute Nucleated RBC Total Counted Band Neuts % (Manual) Reactive Lymphs % (Man) Abnorm Lymph % (Manual) Nucleated RBC % Neutrophils # (Manual) Lymphocytes # (Manual) Monocytes # (Manual) Eosinophils # (Manual) Basophils # (Manual) Differential Comment Platelet Estimate Platelet Morphology RBC Morph Micro Appear PT INR Sodium Potassium Chloride Carbon Dioxide Anion Gap BUN Creatinine Estimated GFR (MDRD) Glucose Calcium Total Bilirubin AST ALT Alkaline Phosphatase Total Creatine Kinase Total Protein Albumin Globulin Albumin/Globulin Ratio Lipase Urine Color YELLOW Urine Clarity HAZY Urine pH 5.0 Ur Specific [place] >=1.030 H Urine Protein NEGATIVE Urine Glucose (UA) NEGATIVE Urine Ketones 15 H Urine Occult Blood SMALL H Urine Nitrite NEGATIVE Urine Bilirubin NEGATIVE Urine Urobilinogen 0.2 (NORMAL) Ur Leukocyte Esterase NEGATIVE Urine RBC 6-10 H Urine WBC 0-3 Ur Squamous Epith Cells FEW Squamous Urine Bacteria Rare Ur Microscopic Review INDICATED Urine Culture Comments NOT INDICATED - Rads (name of study) CT Head Radiology: EMP read contemporaneously (Atrophy, NAD) B Tib Fib XRs Radiology: EMP read contemporaneously (NAD) 2v chest Radiology: EMP read contemporaneously (normal) PD MEDICAL DECISION MAKING - ED course ED course: 88-year-old woman presents from assisted living with a fall at some point during the day and was on the ground for a while. She had a head CT which was unremarkable as well as a chest x-ray and we were looking for infection with urine as well. Her urine was negative except for evidence of dehydration with ketonuria which was mild and high specific gravity for which she was administered both oral and IV fluids. She was unable to walk or bear weight and [facility] could not take her back unless she was ambulatory and independent space spoke with Dr. Yun for observation at 8:54 PM. Departure - Departure Disposition: ED Place in Observation Clinical Impression: Dehydration Fall from slip, trip, or stumble Qualifiers: Encounter type: initial encounter Qualified Code(s): W01.0XXA - Fall on same level from slipping, tripping and stumbling without subsequent striking against object, initial encounter Injury of head and neck Qualifiers: Encounter type: initial encounter Qualified Code(s): S09.90XA - Unspecified injury of head, initial encounter Condition: Good Record reviewed to determine appropriate education?: Yes Instructions: ED Dehydration Comments: Call your doctor to arrange a follow-up appointment, make the next available appointment. In the interim, return anytime if worse or if new symptoms develop. Your blood pressure was elevated today on check into the emergency department. This does not mean that you have hypertension, it is a common phenomenon to come to the emergency department and have elevated blood pressure. I recommend that you see your primary care physician within the week to have it rechecked when you are feeling better.
--- NOTE | 2018-09-23 18:01 | CT Report ---
Reason: poss head inj Procedure Date: 09/23/2018 Accession Number: [id number] / [id number] Procedure: CT - Head W/O CPT Code: FULL RESULT: EXAM: CT HEAD EXAM DATE: 09/23/2018 05:27 PM. CLINICAL HISTORY: Fall, pain. COMPARISON: CERVICAL SPINE W/O 07/12/2018 5:00 PM HEAD W/O 12/01/2016 11:04 AM HEAD W/O 07/12/2018 5:00 PM. TECHNIQUE: Multiaxial CT images were obtained from the foramen magnum to the vertex. Reformats: Sagittal and coronal. IV contrast: None. In accordance with CT protocol optimization, one or more of the following dose reduction techniques were utilized for this exam: automated exposure control, adjustment of mA and/or KV based on patient size, or use of iterative reconstructive technique. FINDINGS: Parenchyma: No intraparenchymal hemorrhage. No evidence of mass, midline shift, or CT findings of acute infarction. Grijalva-white differentiation is distinct. Diffuse chronic microangiopathic white matter changes. Extraaxial Spaces: Normal for age. No subdural or epidural collections. Ventricles: The ventricles and cortical sulci are enlarged, consistent with age-related tissue loss. Sinuses and orbits: Imaged paranasal sinuses, orbits, and mastoids show no significant abnormality. Bones: Unremarkable. Other: None. IMPRESSION: Generalized age-related cortical atrophic changes without evidence of acute intracranial abnormality. RADIA
--- NOTE | 2018-09-23 18:29 | XRAY Report ---
Reason: leg injuries Procedure Date: 09/23/2018 Accession Number: [id number] / [id number] Procedure: XR - Tib/Fib BILAT CPT Code: FULL RESULT: EXAM: BILATERAL TIBIA/FIBULA RADIOGRAPHY EXAM DATE: 09/23/2018 05:42 PM. CLINICAL HISTORY: Leg injuries. COMPARISON: FEMUR RT 03/10/2014 1:44 PM. TECHNIQUE: 2 views. FINDINGS: Bones: There is a right total knee arthroplasty prosthesis. The hardware appears intact. No fracture. No lucency at bone hardware interface. There is a left total knee arthroplasty prosthesis which appears in satisfactory position. No fracture or loosening. Joints: Alignment at knee and ankle appears preserved bilaterally. No widening of the ankle mortise. Soft Tissues: There is soft tissue swelling of the inferior left lower leg above the ankle. IMPRESSION: 1. No acute fracture of bilateral tibia fibula. 2. Previous total knee arthroplasty appearing in satisfactory alignment. RADIA
--- NOTE | 2018-09-23 18:31 | XRAY Report ---
Reason: cough Procedure Date: 09/23/2018 Accession Number: [id number] / [id number] Procedure: XR - Chest 2 View X-Ray CPT Code: 33206 FULL RESULT: EXAM: CHEST RADIOGRAPHY EXAM DATE: 09/23/2018 05:42 PM. CLINICAL HISTORY: Cough. COMPARISON: CHEST 1 VIEW 08/17/2018 9:12 AM. TECHNIQUE: 2 views. FINDINGS: Lungs/Pleura: Previously seen left pleural effusion has resolved. Lungs appear clear. No edema or pneumothorax. Mediastinum: Heart size is normal. There is mild aortic arch atherosclerotic calcification. Other: None. IMPRESSION: 1. Clear lungs. Interval resolution of left pleural effusion. RADIA
[2018-09-23 18:51] LABS: BASOPHILS % (AUTO) 0.3 %; EOSINOPHILS % (AUTO) 0.4 %; HGB - HEMOGLOBIN 13.8 g/dL (12.0-16.0); LYMPHOCYTES % (AUTO) 16.8 %; MEAN CORPUSCULAR HEMOGLOBIN 31.8 pg (27.0-31.0); MEAN CORPUSCULAR HGB CONC 33.3 g/dL (32.0-36.0); MEAN CORPUSCULAR VOLUME 95.4 fL (81.0-99.0); MEAN PLATELET VOLUME 8.6 fL (7.9-10.8); MONOCYTES % (AUTO) 25.9 %; NEUTROPHILS % (AUTO) 56.6 %; PLT - PLATELET COUNT 164 10^3/uL (130-450); RED BLOOD COUNT 4.33 10^6/uL (4.20-5.40); RED CELL DISTRIBUTION WIDTH 15.8 % (12.0-15.0); WHITE BLOOD COUNT 12.4 x10^3/uL (4.8-10.8)
[2018-09-23 18:59] LABS: BILIRUBIN,URINE NEGATIVE (NEGATIVE); GLUCOSE, URINE (UA) NEGATIVE (NEGATIVE); KETONES,URINE (UA) 15 mg/dL (NEGATIVE); LEUKOCYTE ESTERASE, URINE NEGATIVE (NEGATIVE); NITRITE,URINE NEGATIVE (NEGATIVE); OCCULT BLOOD,URINE SMALL (NEGATIVE); PROTEIN,URINE NEGATIVE (NEGATIVE); UROBILINOGEN,URINE 0.2 (NORMAL) E.U./dL (NORMAL)
[2018-09-23 19:08] LABS: ABNORMAL LYMPHS % (MANUAL) 0 %
[2018-09-23 19:10] LABS: ALBUMIN 4.3 g/dL (3.2-5.5); ALBUMIN/GLOBULIN RATIO 1.5 (1.0-2.2); BILIRUBIN,TOTAL 0.8 mg/dL (0.2-1.0); CALCIUM 8.9 mg/dL (8.5-10.3); CREATININE 0.9 mg/dL (0.4-1.0); TOTAL PROTEIN 7.1 g/dL (6.7-8.2)
[2018-09-23 19:12] LABS: CLARITY,URINE HAZY (CLEAR)
[2018-09-23 19:13] LABS: INR 1.1 (0.8-1.2); PT - PROTHROMBIN TIME 12.5 secs (9.9-12.6)
[2018-09-23 19:15] LABS: BACTERIA,URINE Rare /HPF (None Seen); SQUAMOUS EPITHELIAL CELL,UR FEW Squamous (<= Few)
[2018-09-23] MEDS ORDERED: SODIUM CHLORIDE 0.9% 1,000 ML IV ONE (19:30)
[2018-09-23 19:33] LABS: BAND NEUTROPHILS % (MANUAL) 7 %; EOSINOPHILS # (MANUAL) 0.1 10^3/uL (0-0.7); LYMPHOCYTES # (MANUAL) 2.2 10^3/uL (1.5-3.5); LYMPHOCYTES % (MANUAL) 15 %; MONOCYTES # (MANUAL) 1.9 10^3/uL (0.0-1.0); NEUTROPHILS # (MANUAL) 8.2 10^3/uL (1.5-6.6); NEUTROPHILS % (MANUAL) 59 %
[2018-09-23 19:34] LABS: DIFFERENTIAL COMMENT MANUAL DIFFERENTIAL; PLATELET ESTIMATE, MANUAL NORMAL (130-450,000) (NORMAL); PLATELET MORPHOLOGY NORMAL APPEARANCE (NORMAL)
[2018-09-23] MEDS ORDERED: POTASSIUM CHLORIDE 20 MEQ TABLET PO SCH (22:01)
[2018-09-24] MEDS: SODIUM CHLORIDE FLUSH 0.9% 10 ML SYRINGE IVP SCH ×3 (00:13→16:22)
[2018-09-24] MEDS: D5NS W/20 MEQ KCL 1,000 ML IV SCH ×3 (00:14→21:27)
[2018-09-24] MEDS: LORazepam 0.5 MG TABLET PO SCH ×4 (00:17→20:32)
[2018-09-24] MEDS: buPROPion SR 100 MG TABLET PO SCH ×3 (00:17→20:32)
--- NOTE | 2018-09-24 01:30 | HISTORY & PHYSICAL EXAMINATION ---
DATE OF SERVICE: 09/23/2018 Physician: Alysia Yun MD HISTORY OF PRESENT ILLNESS: This is an 88-year-old white female. She had a recent history of pneumonia and was hospitalized at [facility], has a history of dementia and hypothyroidism. She lives at [facility] and was complaining of urinary frequency and dysuria, and also the staff noticed some confusion. Today, the staff found her on the floor of her facility, and she did not remember how she got there. She complained of hurting all over but no more specific. She thought she was on the floor at least a few hours. She was brought to the emergency room. She was found to be dehydrated as well as in rhabdomyolysis on workup. PAST MEDICAL HISTORY 1. Hypothyroidism. 2. Incontinence. 3. Osteoarthritis with back pain. 4. Depression. ALLERGIES 1. PENICILLIN. 2. WHEAT. MEDICATIONS 1. Colace daily. 2. Lorazepam t.i.d. scheduled. 3. Famotidine 20 mg b.i.d. 4. Senna daily. 5. Polyethylene glycol daily. 6. Bupropion 100 mg b.i.d. 7. Multivitamin daily. 8. Lidocaine patch topically daily. 9. Levothyroxine 50 mcg daily. 10. Cough drops p.r.n. 11. Vitamin D3 daily. 12. Tylenol Extra Strength p.r.n. REVIEW OF SYSTEMS: A comprehensive review of systems was performed by chart review, especially the ER note. The pertinent positives are in the HPI. The rest are negative. FAMILY HISTORY: No inherited diseases. SOCIAL HISTORY: No smoking, drinking or illicit drug use. PHYSICAL EXAMINATION GENERAL: Elderly white female. She was pleasantly confused in the ER, she is now sleeping supine and appears comfortable. VITAL SIGNS: Blood pressure 148/75, pulse of 78 in sinus rhythm, afebrile, room air saturation 96%. HEENT: Unremarkable except for dry oral mucosa. NECK: Without JVD. CHEST: Clear. HEART: Sounds distant. ABDOMEN: Soft, nontender. No organomegaly. EXTREMITIES: No edema. NEUROLOGIC: Confused, grossly intact. LABORATORY STUDIES: Sodium 137, potassium 3.3, BUN 21, creatinine 0.9. Normal liver tests and bilirubin. Total creatine kinase 863. Lipase normal. INR normal. White blood count 12.4 with a left shift, hemoglobin 13.8, platelet count 164. Urinalysis unremarkable. IMAGING 1. Chest x-ray: No active disease. 2. Head CT: No acute findings. 3. Lower extremity x-ray: No evidence of fracture or dislocation. IMPRESSION/DIAGNOSES 1. Confusion/altered mental status. 2. Dehydration. 3. Fall at home. 4. Rhabdomyolysis. 5. Weakness. 6. Hypokalemia. 7. History of hypothyroidism. PLAN: Place patient in Observation. Begin IV hydration. Continue with her thyroid medications. Replace her potassium. Obtain PT and OT evaluation as to whether she can return back to the same living situation or needs SNF for PT rehabilitation. Follow her electrolytes, BUN and creatinine, and total CK. CODE STATUS: FULL CODE. DEEP VENOUS THROMBOSIS PROPHYLAXIS: SCDs. ATTESTATION: Patient is expected to be discharged or transferred to another facility within 96 hours: Yes. TD: 09/24/2018 00:12 [email or web address]
[2018-09-24] MEDS: ACETAMINOPHEN 325 MG TABLET PO PRN ×4 (06:04→20:31)
[2018-09-24] MEDS: PANTOPRAZOLE 40 MG TABLET PO SCH (06:05)
[2018-09-24] MEDS: SODIUM CHLORIDE FLUSH 0.9% 10 ML SYRINGE IVP PRN (06:05)
[2018-09-24 06:43] LABS: CALCIUM 8.4 mg/dL (8.5-10.3); CREATININE 0.7 mg/dL (0.4-1.0)
[2018-09-24] MEDS ORDERED: POLYETHYLENE GLYCOL 3350 17 GM PACKET PO SCH (09:00)
[2018-09-24] MEDS: LIDOCAINE PATCH 5% TOP SCH (10:56)
[2018-09-24] MEDS: LEVOTHYROXINE 25 MCG TABLET PO SCH (10:57)
[2018-09-24] MEDS: DOCUSATE SODIUM 250 MG CAPSULE PO SCH (10:57)
[2018-09-24] MEDS: MULTIVITAMIN TABLET PO SCH (10:57)
[2018-09-24] MEDS: SENNA 8.6 MG TABLET PO SCH (10:57)
[2018-09-24] MEDS ORDERED: BENZOCAINE/MENTHOL LOZENGE MM PRN (11:09)
--- NOTE | 2018-09-24 11:22 | PROVIDER PROGRESS NOTE ---
Subjective - Prog Note Date Prog Note Date: 09/24/18 Prog Note Time: 11:22 - Subjective Pt reports feeling: Improved Subjective: Ammy has no complaints and denies any new symptoms. Current Medications - Current Medications Current Medications: Active Medications: Acetaminophen (Tylenol) 650 mg PO Q4HR PRN Bupropion HCl (Wellbutrin Sr) 100 mg PO BID YANA Docusate Sodium (Colace 250mg Capsule) 500 mg PO DAILY YANA Potassium Chloride/Dextrose/Sod Cl () 1,000 mls @ 100 mls/hr IV .Q10H YANA Levothyroxine Sodium (Synthroid) 50 mcg PO DAILY YANA Lidocaine (Lidoderm Patch) 1 patch TOP DAILY YANA Lorazepam (Ativan) 0.5 mg PO TID YANA Multivitamins (Theragran) 1 tab PO DAILY YANA Oxycodone HCl (Roxicodone) 5 mg PO Q6HR PRN Pantoprazole Sodium (Protonix) 40 mg PO QDAC YANA Polyethylene Glycol (Miralax) 17 gm PO DAILY YANA Senna (Senokot) 17.2 mg PO DAILY YANA Throat Lozenges (Cepacol) 1 lozenge MM Q2HR PRN HOME meds: Acetaminophen [Tylenol Extra Strength] 1,000 mg PO Q8HR PRN 08/14/18 Cholecalciferol (Vitamin D3) [Vitajoy Daily D] 1,000 unit PO DAILY 08/14/18 Multivitamin [Multiple Vitamins] 1 tab PO DAILY 08/14/18 buPROPion HCl [Bupropion HCl] 100 mg PO BID 08/14/18 Eucalyptus/Menthol [Cough Drops] 1 lozenge PO DAILY PRN 08/15/18 Levothyroxine Sodium 50 mcg PO QDAC 08/15/18 Docusate Sodium [Dss] 500 mg PO DAILY 09/23/18 Famotidine 20 mg PO BID 09/23/18 LORazepam [Ativan] 0.5 mg PO TID 09/23/18 Polyethylene Glycol 3350 17 gm PO DAILY 09/23/18 Senna [Senokot] 17.2 mg PO DAILY 09/23/18 LORazepam [Lorazepam] 0.5 mg PO DAILY PRN 09/24/18 Objective - Vital Signs/Intake & Output Reviewed Vital Signs: Yes Vital Signs: Vital Signs x48h Temp Pulse Resp BP Pulse Ox 09/24/18 07:54 36.6 C 72 16 124/58 L 94 Intake & Output: Intake & Output 09/21/18 09/22/18 09/23/18 09/24/18 23:59 23:59 23:59 23:59 Intake Total 1000 1200 Output Total 450 Balance 1000 750 - Objective General Appearance: positive: Alert, Anxious, Lethargic Eyes Bilateral: positive: PERRL Eyes: OU Conjunctivae pale ENT: positive: Pharynx nml, No signs of dehydration Neck: positive: Thyroid nml, No JVD, Trachea midline Respiratory: positive: Chest non-tender, No respiratory distress, Other (diminished) Cardiovascular: positive: Regular rate & rhythm, No gallop, Systolic murmur, D ecreased pulse(s) Peripheral Pulses: 1+ Radial (R), 1+ Radial (L) Abdomen: positive: Non-tender, Nml bowel sounds Back: positive: Nml inspection Skin: positive: No rash, Warm, Dry, Pallor Extremities: positive: Non-tender, Full ROM, Pedal edema Neurologic/Psychiatric: positive: Disoriented to place, Disoriented to time, Weakness, Sensory loss, Slurred/abnml speech, Depressed mood/affect, Other (baseline dementia) Reflexes: Bicep (R): 2+, Bicep (L): 2+ - Lab Results Fish Bones: 09/23/18 18:00 09/24/18 06:10 Other Labs: Lab Results x24hrs 09/24/18 09/24/18 09/23/18 Range/Units 09:05 06:10 18:15 WBC (4.8-10.8) x10^3/uL RBC (4.20-5.40) 10^6/uL Hgb (12.0-16.0) g/dL Hct (37.0-47.0) % MCV (81.0-99.0) fL MCH (27.0-31.0) pg MCHC (32.0-36.0) g/dL RDW (12.0-15.0) % Plt Count (130-450) 10^3/uL MPV (7.9-10.8) fL Neut # (Auto) Lymph # (Auto) Troup # (Auto) Eos # (Auto) Baso # (Auto) Absolute Nucleated RBC Total Counted Band Neuts % (Manual) (0 - 10) % Reactive Lymphs % (Man) % Abnorm Lymph % (Manual) % Nucleated RBC % Neutrophils # (Manual) (1.5-6.6) 10^3/uL Lymphocytes # (Manual) (1.5-3.5) 10^3/uL Monocytes # (Manual) (0.0-1.0) 10^3/uL Eosinophils # (Manual) (0-0.7) 10^3/uL Basophils # (Manual) (0-0.1) 10^3/uL Differential Comment Platelet Estimate (NORMAL) Platelet Morphology (NORMAL) RBC Morph Micro Appear (NORMAL) PT (9.9-12.6) secs INR (0.8-1.2) Sodium 136 (135-145) mmol/L Potassium 3.5 (3.5-5.0) mmol/L Chloride 104 (101-111) mmol/L Carbon Dioxide 25 (21-32) mmol/L Anion Gap 7.0 (6-13) BUN 12 (6-20) mg/dL Creatinine 0.7 (0.4-1.0) mg/dL Estimated GFR (MDRD) 79 L (>89) Glucose 105 H (70-100) mg/dL Calcium 8.4 L (8.5-10.3) mg/dL Total Bilirubin (0.2-1.0) mg/dL AST (10-42) IU/L ALT (10-60) IU/L Alkaline Phosphatase (42-121) IU/L Total Creatine Kinase 400 H (22-269) IU/L Total Protein (6.7-8.2) g/dL Albumin (3.2-5.5) g/dL Globulin (2.1-4.2) g/dL Albumin/Globulin Ratio (1.0-2.2) Lipase (22-51) U/L TSH (0.34-5.60) uIU/mL Urine Color YELLOW Urine Clarity HAZY (CLEAR) Urine pH 5.0 (5.0-7.5) PH Ur Specific Arthur >=1.030 H (1.002-1.030) Urine Protein NEGATIVE (NEGATIVE) mg/dL Urine Glucose (UA) NEGATIVE (NEGATIVE) mg/dL Urine Ketones 15 H (NEGATIVE) mg/dL Urine Occult Blood SMALL H (NEGATIVE) Urine Nitrite NEGATIVE (NEGATIVE) Urine Bilirubin NEGATIVE (NEGATIVE) Urine Urobilinogen 0.2 (NORMAL) (NORMAL) E.U./dL Ur Leukocyte Esterase NEGATIVE (NEGATIVE) Urine RBC 6-10 H (0-5) /HPF Urine WBC 0-3 (0-5) /HPF Ur Squamous Epith Cells FEW Squamous (<= Few) Urine Bacteria Rare (None Seen) /HPF Ur Microscopic Review INDICATED Urine Culture Comments NOT INDICATED 09/23/18 09/23/18 09/23/18 Range/Units 18:00 18:00 18:00 WBC (4.8-10.8) x10^3/uL RBC (4.20-5.40) 10^6/uL Hgb (12.0-16.0) g/dL Hct (37.0-47.0) % MCV (81.0-99.0) fL MCH (27.0-31.0) pg MCHC (32.0-36.0) g/dL RDW (12.0-15.0) % Plt Count (130-450) 10^3/uL MPV (7.9-10.8) fL Neut # (Auto) Lymph # (Auto) Troup # (Auto) Eos # (Auto) Baso # (Auto) Absolute Nucleated RBC Total Counted Band Neuts % (Manual) (0 - 10) % Reactive Lymphs % (Man) % Abnorm Lymph % (Manual) % Nucleated RBC % Neutrophils # (Manual) (1.5-6.6) 10^3/uL Lymphocytes # (Manual) (1.5-3.5) 10^3/uL Monocytes # (Manual) (0.0-1.0) 10^3/uL Eosinophils # (Manual) (0-0.7) 10^3/uL Basophils # (Manual) (0-0.1) 10^3/uL Differential Comment Platelet Estimate (NORMAL) Platelet Morphology (NORMAL) RBC Morph Micro Appear (NORMAL) PT 12.5 (9.9-12.6) secs INR 1.1 (0.8-1.2) Sodium 137 (135-145) mmol/L Potassium 3.3 L (3.5-5.0) mmol/L Chloride 99 L (101-111) mmol/L Carbon Dioxide 28 (21-32) mmol/L Anion Gap 10.0 (6-13) BUN 21 H (6-20) mg/dL Creatinine 0.9 (0.4-1.0) mg/dL Estimated GFR (MDRD) 59 L (>89) Glucose 98 (70-100) mg/dL Calcium 8.9 (8.5-10.3) mg/dL Total Bilirubin 0.8 (0.2-1.0) mg/dL AST 40 (10-42) IU/L ALT 30 (10-60) IU/L Alkaline Phosphatase 69 (42-121) IU/L Total Creatine Kinase 863 H (22-269) IU/L Total Protein 7.1 (6.7-8.2) g/dL Albumin 4.3 (3.2-5.5) g/dL Globulin 2.8 (2.1-4.2) g/dL Albumin/Globulin Ratio 1.5 (1.0-2.2) Lipase 24 (22-51) U/L TSH 2.43 (0.34-5.60) uIU/mL Urine Color Urine Clarity (CLEAR) Urine pH (5.0-7.5) PH Ur Specific Arthur (1.002-1.030) Urine Protein (NEGATIVE) mg/dL Urine Glucose (UA) (NEGATIVE) mg/dL Urine Ketones (NEGATIVE) mg/dL Urine Occult Blood (NEGATIVE) Urine Nitrite (NEGATIVE) Urine Bilirubin (NEGATIVE) Urine Urobilinogen (NORMAL) E.U./dL Ur Leukocyte Esterase (NEGATIVE) Urine RBC (0-5) /HPF Urine WBC (0-5) /HPF Ur Squamous Epith Cells (<= Few) Urine Bacteria (None Seen) /HPF Ur Microscopic Review Urine Culture Comments 09/23/18 Range/Units 18:00 WBC 12.4 H (4.8-10.8) x10^3/uL RBC 4.33 (4.20-5.40) 10^6/uL Hgb 13.8 (12.0-16.0) g/dL Hct 41.3 (37.0-47.0) % MCV 95.4 (81.0-99.0) fL MCH 31.8 H (27.0-31.0) pg MCHC 33.3 (32.0-36.0) g/dL RDW 15.8 H (12.0-15.0) % Plt Count 164 (130-450) 10^3/uL MPV 8.6 (7.9-10.8) fL Neut # (Auto) Not Reportable Lymph # (Auto) Not Reportable Troup # (Auto) Not Reportable Eos # (Auto) Not Reportable Baso # (Auto) Not Reportable Absolute Nucleated RBC Not Reportable Total Counted 100 Band Neuts % (Manual) 7 (0 - 10) % Reactive Lymphs % (Man) 3 % Abnorm Lymph % (Manual) 0 % Nucleated RBC % Not Reportable Neutrophils # (Manual) 8.2 H (1.5-6.6) 10^3/uL Lymphocytes # (Manual) 2.2 (1.5-3.5) 10^3/uL Monocytes # (Manual) 1.9 H (0.0-1.0) 10^3/uL Eosinophils # (Manual) 0.1 (0-0.7) 10^3/uL Basophils # (Manual) 0.0 (0-0.1) 10^3/uL Differential Comment MANUAL DIFFERENTIAL Platelet Estimate NORMAL (130-450,000) (NORMAL) Platelet Morphology NORMAL APPEARANCE (NORMAL) RBC Morph Micro Appear 2+ POIKILOCYTOSIS (NORMAL) PT (9.9-12.6) secs INR (0.8-1.2) Sodium (135-145) mmol/L Potassium (3.5-5.0) mmol/L Chloride (101-111) mmol/L Carbon Dioxide (21-32) mmol/L Anion Gap (6-13) BUN (6-20) mg/dL Creatinine (0.4-1.0) mg/dL Estimated GFR (MDRD) (>89) Glucose (70-100) mg/dL Calcium (8.5-10.3) mg/dL Total Bilirubin (0.2-1.0) mg/dL AST (10-42) IU/L ALT (10-60) IU/L Alkaline Phosphatase (42-121) IU/L Total Creatine Kinase (22-269) IU/L Total Protein (6.7-8.2) g/dL Albumin (3.2-5.5) g/dL Globulin (2.1-4.2) g/dL Albumin/Globulin Ratio (1.0-2.2) Lipase (22-51) U/L TSH (0.34-5.60) uIU/mL Urine Color Urine Clarity (CLEAR) Urine pH (5.0-7.5) PH Ur Specific Arthur (1.002-1.030) Urine Protein (NEGATIVE) mg/dL Urine Glucose (UA) (NEGATIVE) mg/dL Urine Ketones (NEGATIVE) mg/dL Urine Occult Blood (NEGATIVE) Urine Nitrite (NEGATIVE) Urine Bilirubin (NEGATIVE) Urine Urobilinogen (NORMAL) E.U./dL Ur Leukocyte Esterase (NEGATIVE) Urine RBC (0-5) /HPF Urine WBC (0-5) /HPF Ur Squamous Epith Cells (<= Few) Urine Bacteria (None Seen) /HPF Ur Microscopic Review Urine Culture Comments ABX Reporting Has patient been on IV antibiotics over the past 48 hours?: No Sepsis Event Note (H) - Evaluation Current Stage of Sepsis: Ruled out Assessment/Plan - Problem List (1) Metabolic encephalopathy Impression: The patient has been more confused and nursing has spoken with her POA who agrees with this. This is likely due to her dehydration and being found down. Plan: Continue to monitor labs and resolve underlying cause. (2) Dehydration Impression: The patient was thought to be dehydrated upon admission likely due to poor oral intake. She has been on IV fluids. Plan: Daily labs, continue IV fluids. (3) Rhabdomyolysis Impression: The patient had an elevated CK of 863 that is improved to 400 today. She remains on IV fluids. Plan: Continue to monitor labs, continue fluids. (4) Fall from slip, trip, or stumble Impression: The patient lives semi-independently and was found on the floor at [facility]. She has since demonstrated a very poor activity tolerance. Plan: Continue to encourage ambulation, PT to evaluate. Qualifiers: Encounter type: initial encounter Qualified Code(s): W01.0XXA - Fall on same level from slipping, tripping and stumbling without subsequent striking against object, initial encounter
[2018-09-25] MEDS: SODIUM CHLORIDE FLUSH 0.9% 10 ML SYRINGE IVP SCH ×3 (02:38→17:07)
[2018-09-25] MEDS: PANTOPRAZOLE 40 MG TABLET PO SCH (05:27)
[2018-09-25] MEDS: LORazepam 0.5 MG TABLET PO SCH ×3 (05:28→20:55)
[2018-09-25] MEDS: D5NS W/20 MEQ KCL 1,000 ML IV SCH (05:47)
[2018-09-25 06:16] LABS: BASOPHILS % (AUTO) 0.2 %; EOSINOPHILS # (AUTO) 0.1 10^3/uL (0.0-0.7); EOSINOPHILS % (AUTO) 0.7 %; LYMPHOCYTES # (AUTO) 1.8 10^3/uL (1.5-3.5); LYMPHOCYTES % (AUTO) 22.6 %; MEAN CORPUSCULAR HEMOGLOBIN 31.7 pg (27.0-31.0); MEAN PLATELET VOLUME 8.7 fL (7.9-10.8); MONOCYTES % (AUTO) 25.4 %; NEUTROPHILS % (AUTO) 51.1 %; PLT - PLATELET COUNT 159 10^3/uL (130-450); RED BLOOD COUNT 3.77 10^6/uL (4.20-5.40); RED CELL DISTRIBUTION WIDTH 15.8 % (12.0-15.0); WHITE BLOOD COUNT 7.9 x10^3/uL (4.8-10.8)
[2018-09-25 06:31] LABS: ALBUMIN 3.2 g/dL (3.2-5.5); ALBUMIN/GLOBULIN RATIO 1.4 (1.0-2.2); BILIRUBIN,TOTAL 0.7 mg/dL (0.2-1.0); CALCIUM 8.2 mg/dL (8.5-10.3); CREATININE 0.7 mg/dL (0.4-1.0); TOTAL PROTEIN 5.5 g/dL (6.7-8.2)
[2018-09-25] MEDS: oxyCODONE 5 MG TABLET PO PRN (07:58)
[2018-09-25] MEDS ORDERED: ACETAMINOPHEN 500 MG TABLET PO PRN (08:53)
[2018-09-25] MEDS ORDERED: FAMOTIDINE 20 MG TABLET PO SCH (09:00)
[2018-09-25] MEDS: LIDOCAINE PATCH 5% TOP SCH (10:29)
[2018-09-25] MEDS: buPROPion SR 100 MG TABLET PO SCH ×2 (10:35→20:55)
[2018-09-25] MEDS: DOCUSATE SODIUM 250 MG CAPSULE PO SCH (10:36)
[2018-09-25] MEDS: SENNA 8.6 MG TABLET PO SCH (10:38)
[2018-09-25] MEDS: MULTIVITAMIN TABLET PO SCH (10:39)
[2018-09-25] MEDS: LEVOTHYROXINE 25 MCG TABLET PO SCH (10:39)
[2018-09-25] MEDS: POLYETHYLENE GLYCOL 3350 17 GM PACKET PO SCH (10:41)
[2018-09-25] MEDS: CHOLECALCIFEROL 1,000 UNIT TABLET PO SCH (10:50)
[2018-09-25] MEDS: SODIUM CHLORIDE FLUSH 0.9% 10 ML SYRINGE IVP PRN (12:07)
--- NOTE | 2018-09-25 12:15 | PROVIDER PROGRESS NOTE ---
Subjective - Prog Note Date Prog Note Date: 09/25/18 Prog Note Time: 12:15 - Subjective Pt reports feeling: No change Subjective: Ammy continues to have pain with movement that is sharp in her right very low back, buttock and hip region. An x-ray was completed and was negative for a fracture. She denies chest pain, nausea, vomiting, rashes, diarrhea, or a new cough. Current Medications - Current Medications Current Medications: Active Medications Acetaminophen (Tylenol) 650 mg PO Q4HR PRN PRN Reason: Pain or Fever > 38C (100.4F) Last Admin: 09/24/18 20:31 Dose: 650 mg Acetaminophen (Tylenol) 1,000 mg PO Q8HR PRN PRN Reason: PAIN Last Admin: 09/25/18 22:53 Dose: 1,000 mg Bupropion HCl (Wellbutrin Sr) 100 mg PO BID [facility] Last Admin: 09/26/18 08:10 Dose: 100 mg Cholecalciferol (Vitamin D3) 1,000 unit PO DAILY [facility] Last Admin: 09/26/18 08:10 Dose: 1,000 unit Docusate Sodium (Colace 250mg Capsule) 500 mg PO DAILY [facility] Last Admin: 09/26/18 08:10 Dose: 500 mg Famotidine (Pepcid) 20 mg PO BIDWM YANA Last Admin: 09/26/18 08:10 Dose: 20 mg Levothyroxine Sodium (Synthroid) 50 mcg PO DAILY [facility] Last Admin: 09/26/18 08:10 Dose: 50 mcg Lidocaine (Lidoderm Patch) 1 patch TOP DAILY [facility] Last Admin: 09/26/18 08:09 Dose: 1 patch Lorazepam (Ativan) 0.5 mg PO TID YANA Last Admin: 09/26/18 06:31 Dose: 0.5 mg Multivitamins (Theragran) 1 tab PO DAILY [facility] Last Admin: 09/26/18 08:10 Dose: 1 tab Oxycodone HCl (Roxicodone) 5 mg PO Q6HR PRN PRN Reason: Pain 5 to 7 Last Admin: 09/25/18 07:58 Dose: 5 mg Polyethylene Glycol (Miralax) 17 gm PO DAILY [facility] Last Admin: 09/26/18 08:10 Dose: 17 gm Senna (Senokot) 17.2 mg PO DAILY YANA Last Admin: 09/26/18 08:11 Dose: Not Given Sodium Chloride (Normal Saline Flush 0.9%) 10 ml IVP PRN PRN PRN Reason: NEEDED PER PROVIDER ORDERS Last Admin: 09/25/18 12:07 Dose: 10 ml Sodium Chloride (Normal Saline Flush 0.9%) 10 ml IVP 0100,0900,1700 [facility] Last Admin: 09/26/18 08:10 Dose: 10 ml Throat Lozenges (Cepacol) 1 lozenge MM Q2HR PRN PRN Reason: Throat pain Last Admin: 09/24/18 11:36 Dose: 1 lozenge Acetaminophen [Tylenol Extra Strength] 1,000 mg PO Q8HR PRN 08/14/18 Cholecalciferol (Vitamin D3) [Vitajoy Daily D] 1,000 unit PO DAILY 08/14/18 Multivitamin [Multiple Vitamins] 1 tab PO DAILY 08/14/18 buPROPion HCl [Bupropion HCl] 100 mg PO BID 08/14/18 Eucalyptus/Menthol [Cough Drops] 1 lozenge PO DAILY PRN 08/15/18 Levothyroxine Sodium 50 mcg PO QDAC 08/15/18 Docusate Sodium [Dss] 500 mg PO DAILY 09/23/18 Famotidine 20 mg PO BID 09/23/18 LORazepam [Ativan] 0.5 mg PO TID 09/23/18 Polyethylene Glycol 3350 17 gm PO DAILY 09/23/18 Senna [Senokot] 17.2 mg PO DAILY 09/23/18 LORazepam [Lorazepam] 0.5 mg PO DAILY PRN 09/24/18 Objective - Vital Signs/Intake & Output Reviewed Vital Signs: Yes Vital Signs: Vital Signs x48h Temp Pulse Resp BP Pulse Ox 09/25/18 07:29 36.7 C 77 16 148/63 H 96 Intake & Output: Intake & Output 09/22/18 09/23/18 09/24/18 09/25/18 23:59 23:59 23:59 23:59 Intake Total 1000 3280 1033.333 Output Total 1375 300 Balance 1000 1905 733.333 - Objective General Appearance: positive: Mild distress, Anxious Eyes Bilateral: positive: PERRL Eyes: OU Conjunctivae pale ENT: positive: Pharynx nml, No signs of dehydration Neck: positive: Thyroid nml, No JVD Respiratory: positive: Chest non-tender, No respiratory distress, Breath sounds nml Cardiovascular: positive: Regular rate & rhythm, No gallop, Systolic murmur Peripheral Pulses: 1+ Radial (R), 1+ Radial (L) Abdomen: positive: Non-tender, Nml bowel sounds Back: positive: Nml inspection, CVA tenderness (R) (low back tenderness) Extremities: positive: Non-tender, Pedal edema (chronic BLE edema), Joint swelling Neurologic/Psychiatric: positive: CN's nml (2-12), Disoriented to place, Dis oriented to time, Weakness, Sensory loss, Slurred/abnml speech, Depressed mood/affect, Other (baseline advanced dementia.) Reflexes: Bicep (R): 2+, Bicep (L): 2+ - Lab Results Fish Bones: 09/26/18 05:20 09/26/18 05:20 Other Labs: Lab Results x24hrs 09/25/18 09/25/18 09/25/18 Range/Units 08:54 05:18 05:18 WBC 7.9 (4.8-10.8) x10^3/uL RBC 3.77 L (4.20-5.40) 10^6/uL Hgb 12.0 (12.0-16.0) g/dL Hct 36.2 L (37.0-47.0) % MCV 96.0 (81.0-99.0) fL MCH 31.7 H (27.0-31.0) pg MCHC 33.0 (32.0-36.0) g/dL RDW 15.8 H (12.0-15.0) % Plt Count 159 (130-450) 10^3/uL MPV 8.7 (7.9-10.8) fL Neut # (Auto) 4.0 (1.5-6.6) 10^3/uL Lymph # (Auto) 1.8 (1.5-3.5) 10^3/uL Garvin # (Auto) 2.0 H (0.0-1.0) 10^3/uL Eos # (Auto) 0.1 (0.0-0.7) 10^3/uL Baso # (Auto) 0.0 (0.0-0.1) 10^3/uL Absolute Nucleated RBC 0.01 x10^3/uL Nucleated RBC % 0.1 /100WBC Sodium 140 (135-145) mmol/L Potassium 3.9 (3.5-5.0) mmol/L Chloride 107 (101-111) mmol/L Carbon Dioxide 26 (21-32) mmol/L Anion Gap 7.0 (6-13) BUN 11 (6-20) mg/dL Creatinine 0.7 (0.4-1.0) mg/dL Estimated GFR (MDRD) 79 L (>89) Glucose 121 H (70-100) mg/dL Calcium 8.2 L (8.5-10.3) mg/dL Total Bilirubin 0.7 (0.2-1.0) mg/dL AST 23 (10-42) IU/L ALT 24 (10-60) IU/L Alkaline Phosphatase 53 (42-121) IU/L Total Creatine Kinase 214 (22-269) IU/L Total Protein 5.5 L (6.7-8.2) g/dL Albumin 3.2 (3.2-5.5) g/dL Globulin 2.3 (2.1-4.2) g/dL Albumin/Globulin Ratio 1.4 (1.0-2.2) ABX Reporting Has patient been on IV antibiotics over the past 48 hours?: No Sepsis Event Note (H) - Evaluation Current Stage of Sepsis: Ruled out Assessment/Plan - Problem List (1) Metabolic encephalopathy Impression: The patient has baseline dementia that is somewhat worsened since her fall. She is likely more confused as a consequence of her electrolyte abnormalities and acute rhabdo, which is improving with IV fluids. Plan: Continue to monitor mental status. (2) Dehydration Impression: The patient had evidence of this with having dry mucous membranes and metobolic encephalopathy. Plan: Encourage PO intake, routine labs. (3) Rhabdomyolysis Impression: The patient was found down at [facility] for an unknown amount of time. She has had low right back pain, right buttock and hip pain since being admitted. Her CK was elevated in the 800 range that is now 400 after getting IV fluids. She likely has overall muscle soreness as a consequence of her rhabdo. Plan: Repeat CK levels daily, stop IV fluids today. (4) Fall from slip, trip, or stumble Impression: The patient has been having more frequent falls and has not had a fracture from this fall. The cause of this fall is likely due to generalized weakness as her dementia progresses. Plan: Continue daily PT, SNF upon discharge. Qualifiers: Encounter type: initial encounter Qualified Code(s): W01.0XXA - Fall on same level from slipping, tripping and stumbling without subsequent striking against object, initial encounter (5) Acute right-sided low back pain Impression: This was her main complaint today and a bruise is appreciated to her right buttock on exam. She was found down at [facility] for an unknown amount of time. She had imaging today of her pelvis and right hip showing no acute fractures. Plan: Continue to monitor, encourage activity and consider CT to rule out abscess if no improvement.
[2018-09-25] MEDS: FAMOTIDINE 20 MG TABLET PO SCH (17:07)
--- NOTE | 2018-09-25 17:51 | XRAY Report ---
Reason: right hip/right low back pain Procedure Date: 09/25/2018 Accession Number: [id number] / [id number] Procedure: XR - Hip w/Pelvis 2-3V RT CPT Code: FULL RESULT: EXAM: RIGHT HIP AND PELVIS RADIOGRAPHY EXAM DATE: 09/25/2018 01:32 PM. HISTORY: Right hip/right low back pain. COMPARISONS: CT pelvis 07/12/2018. TECHNIQUE: 1 view of the pelvis and 1 view of the hip. FINDINGS: Bones: There are 3 metallic surgical screws traversing across the right femoral neck. There is a mildly impacted subcapital fracture of the right proximal femur without definite change. No pelvic fracture. Joints: No subluxation or dislocation. Soft Tissues: Normal. No soft tissue swelling. IMPRESSION: 1. Previous internal fixation of right femoral neck. No acute fracture identified. [facility]
[2018-09-26] MEDS: SODIUM CHLORIDE FLUSH 0.9% 10 ML SYRINGE IVP SCH ×4 (00:11→23:57)
[2018-09-26 05:58] LABS: BASOPHILS % (AUTO) 0.4 %; EOSINOPHILS # (AUTO) 0.1 10^3/uL (0.0-0.7); EOSINOPHILS % (AUTO) 0.9 %; HGB - HEMOGLOBIN 12.6 g/dL (12.0-16.0); LYMPHOCYTES % (AUTO) 24.8 %; MEAN CORPUSCULAR HEMOGLOBIN 31.5 pg (27.0-31.0); MEAN CORPUSCULAR VOLUME 95.5 fL (81.0-99.0); MEAN PLATELET VOLUME 8.6 fL (7.9-10.8); MONOCYTES # (AUTO) 2.1 10^3/uL (0.0-1.0); MONOCYTES % (AUTO) 26.4 %; NEUTROPHILS # (AUTO) 3.8 10^3/uL (1.5-6.6); NEUTROPHILS % (AUTO) 47.5 %; PLT - PLATELET COUNT 180 10^3/uL (130-450); RED BLOOD COUNT 4.01 10^6/uL (4.20-5.40); RED CELL DISTRIBUTION WIDTH 15.7 % (12.0-15.0)
[2018-09-26 06:07] LABS: ALBUMIN 3.5 g/dL (3.2-5.5); ALBUMIN/GLOBULIN RATIO 1.3 (1.0-2.2); BILIRUBIN,TOTAL 0.6 mg/dL (0.2-1.0); CALCIUM 8.8 mg/dL (8.5-10.3); CREATININE 0.7 mg/dL (0.4-1.0); TOTAL PROTEIN 6.2 g/dL (6.7-8.2)
[2018-09-26] MEDS: LORazepam 0.5 MG TABLET PO SCH ×3 (06:31→21:27)
[2018-09-26] MEDS: LIDOCAINE PATCH 5% TOP SCH (08:09)
[2018-09-26] MEDS: LEVOTHYROXINE 25 MCG TABLET PO SCH (08:10)
[2018-09-26] MEDS: FAMOTIDINE 20 MG TABLET PO SCH ×2 (08:10→16:06)
[2018-09-26] MEDS: MULTIVITAMIN TABLET PO SCH (08:10)
[2018-09-26] MEDS: DOCUSATE SODIUM 250 MG CAPSULE PO SCH (08:10)
[2018-09-26] MEDS: buPROPion SR 100 MG TABLET PO SCH ×2 (08:10→21:27)
[2018-09-26] MEDS: POLYETHYLENE GLYCOL 3350 17 GM PACKET PO SCH (08:10)
[2018-09-26] MEDS: CHOLECALCIFEROL 1,000 UNIT TABLET PO SCH (08:10)
[2018-09-26] MEDS: SENNA 8.6 MG TABLET PO SCH (08:11)
--- NOTE | 2018-09-26 09:19 | PROVIDER PROGRESS NOTE ---
Subjective - Prog Note Date Prog Note Date: 09/26/18 Prog Note Time: 09:19 - Subjective Pt reports feeling: Improved Subjective: Ammy complains of right buttock pain that is improved, but is still quite debilitated. She denies chest pain, nausea, vomiting, rashes, diarrhea, or a new cough and has been participating in therapy who suggests SNF placement. Current Medications - Current Medications Current Medications: Active Medications Acetaminophen (Tylenol) 650 mg PO Q4HR PRN PRN Reason: Pain or Fever > 38C (100.4F) Last Admin: 09/26/18 16:06 Dose: 650 mg Acetaminophen (Tylenol) 1,000 mg PO Q8HR PRN PRN Reason: PAIN Last Admin: 09/25/18 22:53 Dose: 1,000 mg Bupropion HCl (Wellbutrin Sr) 100 mg PO BID [facility] Last Admin: 09/26/18 08:10 Dose: 100 mg Cholecalciferol (Vitamin D3) 1,000 unit PO DAILY [facility] Last Admin: 09/26/18 08:10 Dose: 1,000 unit Docusate Sodium (Colace 250mg Capsule) 500 mg PO DAILY [facility] Last Admin: 09/26/18 08:10 Dose: 500 mg Famotidine (Pepcid) 20 mg PO BIDWM [facility] Last Admin: 09/26/18 16:06 Dose: Not Given Levothyroxine Sodium (Synthroid) 50 mcg PO DAILY [facility] Last Admin: 09/26/18 08:10 Dose: 50 mcg Lidocaine (Lidoderm Patch) 1 patch TOP DAILY [facility] Last Admin: 09/26/18 08:09 Dose: 1 patch Lorazepam (Ativan) 0.5 mg PO TID [facility] Last Admin: 09/26/18 13:04 Dose: 0.5 mg Multivitamins (Theragran) 1 tab PO DAILY [facility] Last Admin: 09/26/18 08:10 Dose: 1 tab Oxycodone HCl (Roxicodone) 5 mg PO Q6HR PRN PRN Reason: Pain 5 to 7 Last Admin: 09/25/18 07:58 Dose: 5 mg Polyethylene Glycol (Miralax) 17 gm PO DAILY [facility] Last Admin: 09/26/18 08:10 Dose: 17 gm Senna (Senokot) 17.2 mg PO DAILY [facility] Last Admin: 09/26/18 08:11 Dose: Not Given Sodium Chloride (Normal Saline Flush 0.9%) 10 ml IVP PRN PRN PRN Reason: NEEDED PER PROVIDER ORDERS Last Admin: 09/25/18 12:07 Dose: 10 ml Sodium Chloride (Normal Saline Flush 0.9%) 10 ml IVP 0100,0900,1700 [facility] Last Admin: 09/26/18 16:06 Dose: 10 ml Throat Lozenges (Cepacol) 1 lozenge MM Q2HR PRN PRN Reason: Throat pain Last Admin: 09/24/18 11:36 Dose: 1 lozenge Acetaminophen [Tylenol Extra Strength] 1,000 mg PO Q8HR PRN 08/14/18 Cholecalciferol (Vitamin D3) [Vitajoy Daily D] 1,000 unit PO DAILY 08/14/18 Multivitamin [Multiple Vitamins] 1 tab PO DAILY 08/14/18 buPROPion HCl [Bupropion HCl] 100 mg PO BID 08/14/18 Eucalyptus/Menthol [Cough Drops] 1 lozenge PO DAILY PRN 08/15/18 Levothyroxine Sodium 50 mcg PO QDAC 08/15/18 Docusate Sodium [Dss] 500 mg PO DAILY 09/23/18 Famotidine 20 mg PO BID 09/23/18 LORazepam [Ativan] 0.5 mg PO TID 09/23/18 Polyethylene Glycol 3350 17 gm PO DAILY 09/23/18 Senna [Senokot] 17.2 mg PO DAILY 09/23/18 LORazepam [Lorazepam] 0.5 mg PO DAILY PRN 09/24/18 Objective - Vital Signs/Intake & Output Reviewed Vital Signs: Yes Vital Signs: Vital Signs x48h Temp Pulse Pulse Pulse Pulse Resp BP 09/26/18 08:50 80 87 76 09/26/18 07:34 36.9 C 73 18 154/92 H BP BP BP Pulse Ox 09/26/18 08:50 158/73 H 142/70 H 158/59 H 09/26/18 07:34 94 Intake & Output: Intake & Output 09/23/18 09/24/18 09/25/18 09/26/18 23:59 23:59 23:59 23:59 Intake Total 1000 3280 2333.333 580 Output Total 1375 2350 1050 Balance 1000 1905 -16.667 -470 - Objective General Appearance: positive: Alert, Mild distress, Anxious Eyes Bilateral: positive: PERRL Eyes: OU Conjunctivae pale ENT: positive: Pharynx nml, No signs of dehydration Neck: positive: Thyroid nml, No JVD, Trachea midline Respiratory: positive: Chest non-tender, No respiratory distress, Breath sounds nml Cardiovascular: positive: No gallop, Irregularly irregular, Systolic murmur, Decreased pulse(s) Peripheral Pulses: 1+ Radial (R), 1+ Radial (L) Abdomen: positive: Non-tender, Nml bowel sounds Back: positive: Nml inspection Skin: positive: Color nml, No rash, Warm, Dry Extremities: positive: Non-tender, Pedal edema (chronic BLE edema), Joint swelling Neurologic/Psychiatric: positive: Disoriented to place, Disoriented to time, Weakness, Sensory loss, Slurred/abnml speech, Depressed mood/affect, Other (baseline dementia) Reflexes: Bicep (R): 3+, Bicep (L): 3+, Ankle (R): 2+, Ankle (L): 2+ - Lab Results Fish Bones: 09/26/18 05:20 09/26/18 05:20 Other Labs: Lab Results x24hrs 09/26/18 09/26/18 09/25/18 Range/Units 05:20 05:20 08:54 WBC 8.0 (4.8-10.8) x10^3/uL RBC 4.01 L (4.20-5.40) 10^6/uL Hgb 12.6 (12.0-16.0) g/dL Hct 38.4 (37.0-47.0) % MCV 95.5 (81.0-99.0) fL MCH 31.5 H (27.0-31.0) pg MCHC 33.0 (32.0-36.0) g/dL RDW 15.7 H (12.0-15.0) % Plt Count 180 (130-450) 10^3/uL MPV 8.6 (7.9-10.8) fL Neut # (Auto) 3.8 (1.5-6.6) 10^3/uL Lymph # (Auto) 2.0 (1.5-3.5) 10^3/uL [place] # (Auto) 2.1 H (0.0-1.0) 10^3/uL Eos # (Auto) 0.1 (0.0-0.7) 10^3/uL Baso # (Auto) 0.0 (0.0-0.1) 10^3/uL Absolute Nucleated RBC 0.01 x10^3/uL Nucleated RBC % 0.1 /100WBC Sodium 138 (135-145) mmol/L Potassium 3.6 (3.5-5.0) mmol/L Chloride 105 (101-111) mmol/L Carbon Dioxide 28 (21-32) mmol/L Anion Gap 5.0 L (6-13) BUN 9 (6-20) mg/dL Creatinine 0.7 (0.4-1.0) mg/dL Estimated GFR (MDRD) 79 L (>89) Glucose 96 (70-100) mg/dL Calcium 8.8 (8.5-10.3) mg/dL Total Bilirubin 0.6 (0.2-1.0) mg/dL AST 24 (10-42) IU/L ALT 28 (10-60) IU/L Alkaline Phosphatase 62 (42-121) IU/L Total Creatine Kinase 214 (22-269) IU/L Total Protein 6.2 L (6.7-8.2) g/dL Albumin 3.5 (3.2-5.5) g/dL Globulin 2.7 (2.1-4.2) g/dL Albumin/Globulin Ratio 1.3 (1.0-2.2) ABX Reporting Has patient been on IV antibiotics over the past 48 hours?: No Sepsis Event Note (H) - Evaluation Current Stage of Sepsis: Ruled out Assessment/Plan - Problem List (1) Metabolic encephalopathy Impression: The patient has baseline dementia that is somewhat worsened since her fall. She is likely more confused as a consequence of her electrolyte abnormalities and acute rhabdo, which is improving with IV fluids. Plan: Continue to monitor mental status. (2) Dehydration Impression: The patient had evidence of this with having dry mucous membranes and metobolic encephalopathy. Plan: Encourage PO intake, routine labs. (3) Rhabdomyolysis Impression: The patient was found down at [facility] for an unknown amount of time. She has had low right back pain, right buttock and hip pain since being admitted. Her CK was elevated in the 800 range that is now 400 after getting IV fluids. She likely has overall muscle soreness as a consequence of her rhabdo. Plan: Encourage PO intake. (4) Fall from slip, trip, or stumble Impression: The patient has been having more frequent falls and has not had a fracture from this fall. The cause of this fall is likely due to generalized weakness as her dementia progresses. Plan: Continue daily PT, SNF upon discharge. Qualifiers: Encounter type: initial encounter Qualified Code(s): W01.0XXA - Fall on same level from slipping, tripping and stumbling without subsequent striking against object, initial encounter (5) Acute right-sided low back pain Impression: This was her main complaint today and a bruise is appreciated to her right buttock on exam. She was found down at [facility] for an unknown amount of time. She had imaging today of her pelvis and right hip showing no acute fractures. Plan: Continue to monitor, encourage activity and consider CT to rule out abscess if no improvement.
[2018-09-26] MEDS: ACETAMINOPHEN 325 MG TABLET PO PRN (16:06)
[2018-09-26] MEDS: oxyCODONE 5 MG TABLET PO PRN (18:05)
[2018-09-27] MEDS ORDERED: hydrALAZINE INJ 20 MG/ML VIAL IVP ONE (01:15)
[2018-09-27 06:08] LABS: BASOPHILS % (AUTO) 0.4 %; EOSINOPHILS # (AUTO) 0.1 10^3/uL (0.0-0.7); EOSINOPHILS % (AUTO) 0.9 %; HGB - HEMOGLOBIN 12.9 g/dL (12.0-16.0); LYMPHOCYTES # (AUTO) 1.7 10^3/uL (1.5-3.5); LYMPHOCYTES % (AUTO) 22.8 %; MEAN CORPUSCULAR HGB CONC 33.6 g/dL (32.0-36.0); MEAN CORPUSCULAR VOLUME 95.2 fL (81.0-99.0); MEAN PLATELET VOLUME 7.9 fL (7.9-10.8); MONOCYTES # (AUTO) 1.9 10^3/uL (0.0-1.0); MONOCYTES % (AUTO) 25.2 %; NEUTROPHILS # (AUTO) 3.8 10^3/uL (1.5-6.6); NEUTROPHILS % (AUTO) 50.7 %; PLT - PLATELET COUNT 206 10^3/uL (130-450); RED BLOOD COUNT 4.03 10^6/uL (4.20-5.40); RED CELL DISTRIBUTION WIDTH 15.7 % (12.0-15.0); WHITE BLOOD COUNT 7.5 x10^3/uL (4.8-10.8)
[2018-09-27] MEDS: LORazepam 0.5 MG TABLET PO SCH (06:13)
[2018-09-27] MEDS: SENNA 8.6 MG TABLET PO SCH (07:25)
[2018-09-27 07:58] VITALS: BP 148/64
[2018-09-27] MEDS: LIDOCAINE PATCH 5% TOP SCH (08:27)
[2018-09-27] MEDS: DOCUSATE SODIUM 250 MG CAPSULE PO SCH (08:28)
[2018-09-27] MEDS: CHOLECALCIFEROL 1,000 UNIT TABLET PO SCH (08:28)
[2018-09-27] MEDS: LEVOTHYROXINE 25 MCG TABLET PO SCH (08:28)
[2018-09-27] MEDS: MULTIVITAMIN TABLET PO SCH (08:28)
[2018-09-27] MEDS: FAMOTIDINE 20 MG TABLET PO SCH (08:28)
[2018-09-27] MEDS: buPROPion SR 100 MG TABLET PO SCH (08:28)
[2018-09-27] MEDS: SODIUM CHLORIDE FLUSH 0.9% 10 ML SYRINGE IVP SCH (08:28)
[2018-09-27] MEDS: POLYETHYLENE GLYCOL 3350 17 GM PACKET PO SCH (08:28)
[2018-09-27] MEDS ORDERED: ZINC OXIDE 20% OINT 28.35 GM TUBE TOP PRN (08:29)
[2018-09-27] MEDS ORDERED: LORazepam 0.5 MG TABLET PO SCH (09:00)
--- NOTE | 2018-09-27 10:18 | Discharge Plan ---
"Discharge Plan for SNF / IVAN - Discharge Plan And Transition Orders Disposition: 03 SNF DC/Xfer Condition: Poor Allergies and Adverse Reactions: Allergies Allergy/AdvReac Type Severity Reaction Status Date / Time Penicillins Allergy Intermediate swelling Verified 09/23/18 17:17 wheat AdvReac Intermediate malaise, Verified 09/23/18 17:17 headache, dizziness - SNF / NURSING HOME Transition Orders Admit to (Facility): [facility] Under the care of (Name): Zeyad Izquierdo Discharge Diagnosis: metabolic encephalopathy, dehydration, rhabdomyolysis, fall, low back pain Medicare Certification Statement: I certify that [facility] home care is medically necessary on a continuing basis for any of the conditions for which she/he is receiving care during hospitalization. Notify PCP of admission and forward orders to primary provider for signature. Weight on admission and: Daily Call PCP immediately if weight increases by: 2 kg Other Notification Orders: Call PCP immediately if patient develops dyspnea, chest pain/tightness or edema. House Bowel Program: Yes Additional Bowel Program Orders: If no BM after 2 days, nurse may give M.O.M. 30ml PO PRN and/or ducolax Supp 1 MI and/or WILBER 250mg P.O., and/or senna 1-2 tabs PO. On day 3 nurse may give repeat above order until residents constipation is resolved. Annual Influenza Vaccine (between Jun 04 and January 01): Yes Two-step PPD per [facility] [phone] or approved exception documents: Yes Treatments & Other Orders: pt may followup Zeyad Izquierdo after pt is arr ival to [facility] Oxygen Orders: PRN Medication Orders: PLEASE REFER TO THE DISCHARGE MEDICATION LIST. Insulin Orders?: No - Medications New Prescriptions: oxyCODONE [Roxicodone] 5 mg PO Q6HR PRN #15 tablet PRN Reason: Pain 5 to 7 - Diet Type: Geriatric Texture: Regular Liquids: Thin May have monthly special meal: Yes - Therapies | Activity Therapy: Evaluation | Treat if indicated: PT, OT Rehabilitation Potential: Maximize functional status Activity: Activity as Tolerated Additional Instructions: pt may followup Zeyad Izquierdo after pt is arrival to [facility]"
--- NOTE | 2018-09-27 10:37 | DISCHARGE SUMMARY ---
Discharge Summary Discharge Date: 09/27/18 Discharging Provider: CHEW Primary Care Provider: Zeyad Izquierdo Condition at Discharge: Poor Discharge Disposition: 03 SNF DC/Xfer Discharge Facility Name: [facility] - DIAGNOSES Admission Diagnoses: (1) Metabolic encephalopathy (2) Dehydration (3) Rhabdomyolysis (4) Fall from slip, trip, or stumble Discharge Diagnoses with Status of Each Condition: 1) Metabolic encephalopathy resolved (2) Dehydration resolved (3) Rhabdomyolysis resolved (4) Fall from slip, trip, or stumble continue SNF for training (5) lower back/hip pain image study reveals no acute fracture. pt is prescribed oxycodone for pain control, continue in SNF for training. - HPI History of Present Illness: pt was admitted for fall, dehydration, confused. Pt was found to have elevated CK and dehydration. PT/OT was arranged for pt. - HOSPITAL COURSE Hospital Course: pt was admitted for fall, dehydration, confused. Pt was found to have elevated CK. pt was evaluated and treated by PT/OT. pt was treated with hydration. pt was recommended to d/c SNF for continuing training. - ALLERGIES Allergies/Adverse Reactions: Allergies Allergy/AdvReac Type Severity Reaction Status Date / Time Penicillins Allergy Intermediate swelling Verified 09/23/18 17:17 wheat AdvReac Intermediate malaise, Verified 09/23/18 17:17 headache, dizziness - MEDICATIONS Home Medications: Ambulatory Orders Medication Instructions Recorded Confirmed Acetaminophen [Tylenol Extra 1,000 mg PO Q8HR PRN 08/14/18 09/24/18 Strength] Cholecalciferol (Vitamin D3) 1,000 unit PO DAILY 08/14/18 09/24/18 [Vitajoy Daily D] Multivitamin [Multiple Vitamins] 1 tab PO DAILY 08/14/18 09/24/18 buPROPion HCl [Bupropion HCl] 100 mg PO BID 08/14/18 09/24/18 Eucalyptus/Menthol [Cough Drops] 1 lozenge PO DAILY PRN 08/15/18 09/24/18 Levothyroxine Sodium 50 mcg PO QDAC 08/15/18 09/24/18 Docusate Sodium [Dss] 500 mg PO DAILY 09/23/18 09/23/18 Famotidine 20 mg PO BID 09/23/18 09/24/18 LORazepam [Ativan] 0.5 mg PO TID 09/23/18 09/23/18 Polyethylene Glycol 3350 17 gm PO DAILY 09/23/18 09/23/18 Senna [Senokot] 17.2 mg PO DAILY 09/23/18 09/23/18 LORazepam [Lorazepam] 0.5 mg PO DAILY PRN 09/24/18 09/24/18 oxyCODONE [Roxicodone] 5 mg PO Q6HR PRN #15 tablet 09/27/18 - PHYSICAL EXAM AT DISCHARGE General Appearance: positive: No acute distress, Alert. negative: Lethargic Eyes Bilateral: positive: Normal inspection, PERRL, No lid inflammation, Conjunctivae nml ENT: positive: ENT inspection nml, Pharynx nml, No signs of dehydration. negative: Purulent nasal drainage, Pharyngeal erythema, Oral lesions Neck: positive: Nml inspection, Thyroid nml, No JVD, Trachea midline. negative: Thyromegaly, Lymphadenopathy (R), Lymphadenopathy (L), Stiff neck, Swelling/bruising, Tracheal deviation Respiratory: positive: Chest non-tender, No respiratory distress, Breath sounds nml. negative: Wheezes, Rales, Rhonchi Cardiovascular: positive: Regular rate & rhythm, No murmur, No gallop. negative: Irregularly irregular, Extrasystoles, Tachycardia, Bradycardia, JVD present, Systolic murmur, Diastolic murmur Peripheral Pulses: positive: 2+ Abdomen: positive: Non-tender, No organomegaly, Nml bowel sounds, No distention. negative: Tenderness, Guarding, Rebound Back: positive: Nml inspection. negative: CVA tenderness (R), CVA tenderness (L) Skin: positive: Color nml, No rash, Warm, Dry. negative: Cyanosis, Diaphoresis, Pallor Extremities: positive: Non-tender, Full ROM, Nml appearance. negative: Calf tenderness, Joint swelling, Charly's sign/cords Neurologic/Psychiatric: positive: Oriented x3, Sensation nml, Mood/affect nml. negative: Weakness, Sensory loss, Facial droop, Slurred/abnml speech, Depressed mood/affect - LABS Result Diagrams: 09/27/18 05:52 09/26/18 05:20 - SEPSIS Current Stage of Sepsis: Ruled out - FOLLOW UP Follow Up: pt may followup Zeayd Izquierdo after pt is arrival to [facility] - TIME SPENT Time Spent in Discharge (Minutes): 50
== END 2018-09-27 12:30 | DRG 640 ==
LOC: EDUNIT# → ED 16:58 → OBS 21:56 → OBSVTOIN 09-24 11:21 → MS2 09-24 15:12
PROVIDERS: ADMIT Internal Medicine; ATTEND Nurse Practitioner
DX: E86.0 Dehydration (principal); S09.90XA Unspecified injury of head, initial encounter; G93.41 Metabolic encephalopathy; M62.82 Rhabdomyolysis; W01.0XXA Fall on same level from slipping, tripping and stumbling without subsequent striking against object, initial encounter; E03.9 Hypothyroidism, unspecified; R32 Unspecified urinary incontinence; F32.9 Major depressive disorder, single episode, unspecified; M19.90 Unspecified osteoarthritis, unspecified site; G89.29 Other chronic pain; M54.9 Dorsalgia, unspecified; Z88.0 Allergy status to penicillin; R41.82 Altered mental status, unspecified; E87.6 Hypokalemia; M25.551 Pain in right hip; F03.90 Unspecified dementia, unspecified severity, without behavioral disturbance, psychotic disturbance, mood disturbance, and anxiety
CPT/HCPCS: 36415; 70450; 71046; 80048; 80053; 81001; 81003; 82550; 83690; 84443; 85025; 85610; 87086; 96360; 96361; 96365; 96366; 99284

== ENCOUNTER 2018-10-04 16:16 | Outpatient (CLI) | payer MEDICARE, OTHER | END 2018-10-04 23:59 | disposition home or self-care (01) | LOC: LAB.R 16:16 | DX: A04.72 Enterocolitis due to Clostridium difficile, not specified as recurrent (principal) | CPT/HCPCS: 87493 ==

== ENCOUNTER 2018-11-05 18:44 | Outpatient (CLI) | payer MEDICARE, OTHER | END 2018-11-05 18:45 | disposition critical access hospital (66) | LOC: EMS 18:44 | PROVIDERS: ATTEND Surgery | DX: S00.83XA Contusion of other part of head, initial encounter (principal); M25.552 Pain in left hip; M25.562 Pain in left knee; W18.30XA Fall on same level, unspecified, initial encounter; Y93.01 Activity, walking, marching and hiking; Y92.199 Unspecified place in other specified residential institution as the place of occurrence of the external cause | CPT/HCPCS: A0425; A0429 ==

== ENCOUNTER 2018-11-05 19:01 | Emergency (ER) | payer MEDICARE, OTHER ==
--- NOTE | 2018-11-05 20:40 | XRAY Report ---
Reason: knee pain Procedure Date: 11/05/2018 Accession Number: [id number] / [id number] Procedure: XR - Knee 2 View LT CPT Code: FULL RESULT: EXAM: LEFT KNEE RADIOGRAPHY EXAM DATE: 11/05/2018 08:09 PM. CLINICAL HISTORY: Knee pain. COMPARISON: XR KNEE 1 OR 2 VIEW 10/14/2007 11:59 AM FEMUR 2V LT 08/23/2018 2:28 AM. TECHNIQUE: 2 views. FINDINGS: Redemonstrated total arthroplasty changes to the left knee. Orthopedic hardware is intact and unchanged in appearance. The bones are osteopenic. No acute fracture or dislocation visualized. Possible small left knee joint effusion. Calcified plaques in the popliteal artery. IMPRESSION: Left knee total arthroplasty changes. No acute fracture or dislocation visualized. Possible small joint effusion. RADIA
--- NOTE | 2018-11-05 21:05 | CT Report ---
Reason: head/neck injury Procedure Date: 11/05/2018 Accession Number: [id number] / [id number] Procedure: CT - Head W/O CPT Code: FULL RESULT: EXAM: CT HEAD EXAM DATE: 11/05/2018 07:49 PM. CLINICAL HISTORY: Head/neck injury. COMPARISON: HEAD W/O 09/23/2018 5:27 PM. TECHNIQUE: Multiaxial CT images were obtained from the foramen magnum to the vertex. Reformats: Sagittal and coronal. IV contrast: None. In accordance with CT protocol optimization, one or more of the following dose reduction techniques were utilized for this exam: automated exposure control, adjustment of mA and/or KV based on patient size, or use of iterative reconstructive technique. FINDINGS: Parenchyma: No intraparenchymal hemorrhage. No evidence of mass, midline shift, or CT findings of acute or subacute infarction. Grijalva-white differentiation is distinct. Moderate bilateral chronic microangiopathic white matter changes are evident. Chronic bilateral basal ganglia lacunar infarcts. Extraaxial Spaces: Normal for age. No subdural or epidural collections identified. Ventricles: The ventricles and cortical sulci are enlarged, consistent with age-related tissue loss. Sinuses and orbits: Minimal left mastoid air cell fluid, unchanged. Otherwise, no significant abnormality. Bones: No evidence of fracture or calvarial defect. Mild right frontal scalp soft tissue swelling. IMPRESSION: Chronic and senescent changes. No acute intracranial abnormality seen. Mild right frontal scalp soft tissue swelling. See above. RADIA
--- NOTE | 2018-11-05 21:10 | CT Report ---
Reason: head/neck injury Procedure Date: 11/05/2018 Accession Number: [id number] / [id number] Procedure: CT - Cervical Spine W/O CPT Code: FULL RESULT: EXAM: CT CERVICAL SPINE WITHOUT CONTRAST DATE: 11/05/2018 07:58 PM. HISTORY: Head/neck injury. COMPARISONS: Cervical spine without contrast 07/12/2018 5:00 PM. TECHNIQUE: Thin-section axial images were acquired of the cervical spine without contrast. Post-processing: Coronal and sagittal reformats. Other: None. In accordance with CT protocol optimization, one or more of the following dose reduction techniques were utilized for this exam: automated exposure control, adjustment of mA and/or KV based on patient size, or use of iterative reconstructive technique. FINDINGS: Moderate to severe degenerative disk disease at C4-C5, C5-C6 and C6-C7. Minimal retrolisthesis at C4-C5 and C5-C6, most likely degenerative. Minimal anterolisthesis at C3-C4. Minimal anterolisthesis at C7-T1. This minimal spondylolisthesis appears unchanged and is most likely due to degenerative change. Mild C2-C3 and C3-C4 degenerative disk disease. Right C2-C3 and C3-C4 facet joint osseous fusion. Left C2-C3 facet joint osseous fusion. Moderate diffuse bilateral facet arthropathy. No acute soft tissue findings are seen. No evidence for acute fracture. IMPRESSION: 1. No evidence for acute fracture. 2. Degenerative changes. See above. RADIA
[2018-11-05 21:24] VITALS: BP 173/99
--- NOTE | 2018-11-05 21:30 | ED Physician Documentation ---
History of Present Illness - Stated complaint Stated Complaint: GLF - Chief complaint Chief Complaint: General - Additonal information Additional information: 88-year-old female who was brought to the emergency department for evaluation of a head injury and knee injury which occurred just prior to arrival. The patient slipped and fell striking her forehead and left knee. The patient denies any loss of consciousness. The patient has some mild facial bruising. The patient denies injury to her chest, abdomen or upper extremities. No other associated symptoms. No relieving factors. Review of Systems Constitutional: denies: Fever Eyes: denies: Discharge Ears: denies: Ear pain Nose: denies: Congestion Throat: denies: Sore throat Cardiac: denies: Chest pain / pressure Respiratory: denies: Cough GI: denies: Abdominal Pain Skin: reports: Abrasion (s) Musculoskeletal: reports: Neck pain, Extremity pain Neurologic: reports: Head injury. denies: Generalized weakness PD PAST MEDICAL HISTORY - Past Medical History Cardiovascular: None Respiratory: Tuberculosis Neuro: CVA Endocrine/Autoimmune: HyPOthyroidism GI: Other : Incontinence HEENT: Other Psych: Depression Musculoskeletal: Osteoarthritis, Chronic back pain Derm: Other - Past Surgical History Past Surgical History: Yes General: Appendectomy, Bowel surgery Ortho: Knee replacement HEENT: Cataracts, Tonsil/Adenoidectomy - Present Medications Home Medications: Ambulatory Orders Medication Instructions Recorded Confirmed Acetaminophen [Tylenol Extra 1,000 mg PO Q8HR PRN 08/14/18 11/05/18 Strength] Cholecalciferol (Vitamin D3) 1,000 unit PO DAILY 08/14/18 11/05/18 [Vitajoy Daily D] Multivitamin [Multiple Vitamins] 1 tab PO DAILY 08/14/18 11/05/18 buPROPion HCl [Bupropion HCl] 100 mg PO BID 08/14/18 11/05/18 Levothyroxine Sodium 50 mcg PO QDAC 08/15/18 11/05/18 Famotidine 20 mg PO BID 09/23/18 11/05/18 Polyethylene Glycol 3350 17 gm PO DAILY 09/23/18 11/05/18 Senna [Senokot] 17.2 mg PO DAILY 09/23/18 11/05/18 - Allergies Allergies/Adverse Reactions: Allergies Allergy/AdvReac Type Severity Reaction Status Date / Time Penicillins Allergy Intermediate swelling Verified 11/05/18 19:08 phenytoin Allergy Unknown Verified 11/05/18 19:08 wheat AdvReac Intermediate malaise, Verified 11/05/18 19:08 headache, dizziness - Social History Does the pt smoke?: No Smoking Status: Never smoker Does the pt drink ETOH?: Yes Does the pt have substance abuse?: No - Immunizations Immunizations are current?: Yes - POLST Patient has POLST: No PD ED PE NORMAL - General General: Alert and oriented X 3, No acute distress - HEENT HEENT: PERRL, EOMI, Ears normal - Neck Neck: No: No bony TTP (Given the patient's age and mechanism a CT scan will need to be performed to clear the patient's neck) - Cardiac Cardiac: RRR, Strong equal pulses - Respiratory Respiratory: No respiratory distress - Abdomen Abdomen: Soft, Non tender - Back Back: No spinal TTP - Derm Derm: Other (Facial bruises and left knee bruise) - Extremities Extremities: No deformity, Normal ROM s pain - Neuro Neuro: Alert and oriented X 3, No motor deficit, Normal speech - Psych Psych: Normal affect PD ED PE EXPANDED - HEENT HEENT Visual: 1 - bruising, abrasion 2 - bruising - Extremities PRIMITIVO LE visual: 1 - bruising, tenderness Results - Vitals Vitals: Vital Signs - 24 hr 11/05/18 11/05/18 11/05/18 19:04 19:11 21:23 Temperature 36.9 C 37.3 C Heart Rate 75 78 Respiratory 18 18 12 Rate Blood Pressure 155/109 H 173/99 H O2 Saturation 95 94 Oxygen O2 Source [With Activity] Room air O2 Source [Without Activity] Nasal cannula O2 Source Room air - Rads (name of study) CT head/neck Radiology: Final report received, See rad report (IMPRESSION: Chronic and senescent changes. No acute intracranial abnormality seen. Mild right frontal scalp soft tissue swelling. 1. No evidence for acute fracture. 2. Degenerative changes. See above.) XR knee Radiology: Final report received, See rad report (IMPRESSION: Left knee total arthroplasty changes. No acute fracture or dislocation visualized. Possible small joint effusion. ) PD MEDICAL DECISION MAKING - ED course ED course: The patient was able to ambulate with her walker, the patient will be discharged back to her assisted living facility. The patient will follow up with primary care. The patient will return to the emergency department for any worsening or any concerns Departure - Departure Disposition: 01 Home, Self Care Clinical Impression: Closed head injury Qualifiers: Encounter type: initial encounter Qualified Code(s): S09.90XA - Unspecified injury of head, initial encounter Knee contusion Qualifiers: Encounter type: initial encounter Laterality: unspecified laterality Qualified Code(s): S80.00XA - Contusion of unspecified knee, initial encounter Contusion of face Qualifiers: Encounter type: initial encounter Qualified Code(s): S00.83XA - Contusion of other part of head, initial encounter Condition: Good Instructions: Bruises Contusions, ED Contusion Scalp, ED Head Injury Closed Comments: Please follow-up with primary care for recheck and reevaluation Please return to the emergency department for any worsening or any concerns
== END 2018-11-05 22:02 | disposition home or self-care (01) ==
LOC: EDUNIT# → ED 19:01
DX: S00.83XA Contusion of other part of head, initial encounter (principal); S80.02XA Contusion of left knee, initial encounter; W01.198A Fall on same level from slipping, tripping and stumbling with subsequent striking against other object, initial encounter; E03.9 Hypothyroidism, unspecified; Z86.73 Personal history of transient ischemic attack (TIA), and cerebral infarction without residual deficits; Z96.659 Presence of unspecified artificial knee joint
CPT/HCPCS: 70450; 72125; 99283

== ENCOUNTER 2018-11-12 04:27 | Outpatient (CLI) | payer MEDICARE, OTHER | END 2018-11-12 04:28 | disposition critical access hospital (66) | LOC: EMS 04:27 | PROVIDERS: ATTEND Surgery | DX: M25.552 Pain in left hip (principal); W18.11XA Fall from or off toilet without subsequent striking against object, initial encounter; Y93.89 Activity, other specified; Y92.192 Bathroom in other specified residential institution as the place of occurrence of the external cause | CPT/HCPCS: A0425; A0429 ==

== ENCOUNTER 2018-11-12 04:52 | Inpatient (IN) | payer MEDICARE, OTHER ==
--- NOTE | 2018-11-12 04:59 | ED Physician Documentation ---
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 No: Anticoagulated Recently seen: Emergency Dept (T+R 1 week ago for fall) Review of Systems Constitutional: reports: Reviewed and negative Eyes: reports: Reviewed and negative Cardiac: reports: Reviewed and negative Respiratory: reports: Reviewed and negative GI: reports: Reviewed and negative : denies: Incontinent Skin: reports: Reviewed and negative Musculoskeletal: reports: Joint pain (left hip), Pain with weight bearing (unable to weight-bear). denies: Neck pain, Back pain Neurologic: denies: Generalized weakness, Focal weakness, Numbness, Headache, Head injury, LOC PD PAST MEDICAL HISTORY - Past Medical History Cardiovascular: None Respiratory: Tuberculosis Neuro: CVA Endocrine/Autoimmune: HyPOthyroidism GI: Other : Incontinence HEENT: Other Psych: Depression Musculoskeletal: Osteoarthritis, Chronic back pain Derm: Other - Past Surgical History Past Surgical History: Yes General: Appendectomy, Bowel surgery Ortho: Knee replacement HEENT: Cataracts, Tonsil/Adenoidectomy - Present Medications Home Medications: Ambulatory Orders Medication Instructions Recorded Confirmed Acetaminophen [Tylenol Extra 1,000 mg PO Q8HR PRN 08/14/18 11/12/18 Strength] Cholecalciferol (Vitamin D3) 1,000 unit PO DAILY 08/14/18 11/12/18 [Vitajoy Daily D] Multivitamin [Multiple Vitamins] 1 tab PO DAILY 08/14/18 11/12/18 Levothyroxine Sodium 50 mcg PO QDAC 08/15/18 11/12/18 Famotidine 20 mg PO BID 09/23/18 11/12/18 Polyethylene Glycol 3350 17 gm PO DAILY PRN 09/23/18 11/12/18 Senna [Senokot] 17.2 mg PO DAILY PRN 09/23/18 11/12/18 Bupropion HCl [Bupropion HCl Sr] 150 mg PO BID 11/12/18 11/12/18 Sertraline [Zoloft] 25 mg PO DAILY 11/12/18 11/12/18 - Allergies Allergies/Adverse Reactions: Allergies Allergy/AdvReac Type Severity Reaction Status Date / Time Penicillins Allergy Intermediate swelling Verified 11/05/18 19:08 phenytoin Allergy Unknown Verified 11/05/18 19:08 wheat AdvReac Intermediate malaise, Verified 11/05/18 19:08 headache, dizziness - Social History Does the pt smoke?: No Smoking Status: Never smoker Does the pt drink ETOH?: Yes Does the pt have substance abuse?: No - Immunizations Immunizations are current?: Yes - POLST Patient has POLST: No PD ED PE NORMAL - Vitals Vital signs reviewed: Yes - General General: Alert and oriented X 3, No acute distress (NAD at rest but obvious painful discomfort with movement involving left hip), Well developed/nourished - HEENT HEENT: Atraumatic, PERRL, EOMI, Moist mucous membranes - Neck Neck: Supple, no meningeal sign, No bony TTP - Cardiac Cardiac: RRR, No murmur - Respiratory Respiratory: No respiratory distress, Clear bilaterally - Abdomen Abdomen: Soft, Non tender - Back Back: No spinal TTP - Derm Derm: Warm and dry, Other (echymosis left knee and chin, both appear to be at least several days old) - Neuro Neuro: Alert and oriented X 3, 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, No motor deficit, No sensory deficit, Normal speech PD ED PE EXPANDED - Extremities Extremities: Tenderness, Limited ROM, Pedal Pulses Present, Other (left hip is exquisitely tender and no ROM due to severe pain with any attempts at movement) Results - Vitals Vitals: Vital Signs - 24 hr 11/12/18 11/12/18 11/12/18 04:52 05:00 06:47 Temperature 36.0 C L Heart Rate 76 70 70 Respiratory 18 16 Rate Blood Pressure 169/88 H 133/66 H O2 Saturation 96 95 94 Oxygen O2 Source [With Activity] Room air O2 Source [Without Activity] Nasal cannula O2 Source Room air - Labs Labs: Laboratory Tests 11/12/18 11/12/18 11/12/18 06:00 06:15 06:15 WBC 6.9 RBC 4.34 Hgb 13.8 Hct 40.5 MCV 93.2 MCH 31.8 H MCHC 34.1 RDW 14.7 Plt Count 180 MPV 7.8 L Neut # (Auto) 3.6 Lymph # (Auto) 1.6 Catron # (Auto) 1.6 H Eos # (Auto) 0.1 Baso # (Auto) 0.0 Absolute Nucleated RBC 0.01 Nucleated RBC % 0.2 PT 12.1 INR 1.1 APTT 25.4 Sodium Potassium Chloride Carbon Dioxide Anion Gap BUN Creatinine Estimated GFR (MDRD) Glucose Calcium Urine Color YELLOW Urine Clarity CLEAR Urine pH 8.0 H Ur Specific Edelstein 1.015 Urine Protein NEGATIVE Urine Glucose (UA) NEGATIVE Urine Ketones NEGATIVE Urine Occult Blood TRACE-INTA Urine Nitrite NEGATIVE Urine Bilirubin NEGATIVE Urine Urobilinogen 0.2 (NORMAL) Ur Leukocyte Esterase NEGATIVE Ur Microscopic Review NOT INDICATED Urine Culture Comments NOT INDICATED 11/12/18 06:15 WBC RBC Hgb Hct MCV MCH MCHC RDW Plt Count MPV Neut # (Auto) Lymph # (Auto) Catron # (Auto) Eos # (Auto) Baso # (Auto) Absolute Nucleated RBC Nucleated RBC % PT INR APTT Sodium 135 Potassium 3.4 L Chloride 97 L Carbon Dioxide 29 Anion Gap 9.0 BUN 14 Creatinine 0.8 Estimated GFR (MDRD) 68 L Glucose 99 Calcium 9.1 Urine Color Urine Clarity Urine pH Ur Specific Edelstein Urine Protein Urine Glucose (UA) Urine Ketones Urine Occult Blood Urine Nitrite Urine Bilirubin Urine Urobilinogen Ur Leukocyte Esterase Ur Microscopic Review Urine Culture Comments - Rads (name of study) left hip xrays Radiology: Prelim report reviewed, See rad report PD MEDICAL DECISION MAKING - ED course Complexity details: reviewed old records, reviewed results, re-evaluated patient, considered differential, d/w patient, d/w family (D/W Albina Farias (DPOA). she called to this ED to ask about her mother's condition. I explained the diagnosis and recommendation for admission and likely surgery; she understan ds and agrees with this recommendation, asks to be contacted with any questions, updates, and/or concerns regarding deterioration; she lives in [place] but says she will travel here if needed) Departure - Departure Disposition: 66 [facility] DC/Xfer Clinical Impression: Hip fracture, left Qualifiers: Encounter type: initial encounter Fracture type: closed Qualified Code(s): S72.002A - Fracture of unspecified part of neck of left femur, initial encounter for closed fracture Condition: Stable Discharge Date/Time: 11/12/18 07:40
--- NOTE | 2018-11-12 05:44 | XRAY Report ---
Reason: fall, pain Procedure Date: 11/12/2018 Accession Number: [id number] / [id number] Procedure: XR - Hip w/Pelvis 2-3V LT CPT Code: FULL RESULT: EXAM: LEFT HIP RADIOGRAPHY EXAM DATE: 11/12/2018 05:37 AM. CLINICAL HISTORY: Fell in the bathroom tonight, pain, COMPARISON: HIP W/PELVIS 2-3V RT 09/25/2018 1:12 PM. TECHNIQUE: 2 views. FINDINGS IMPRESSION: 1. There is a mild impacted and mild to moderate dorsal angulated subcapital fracture of the left femur. 2. There are 3 screws utilized for fixation of a prior subcapital right femoral fracture. 3. Moderate to severe bilateral hip joint degenerative change. 4. Mild bilateral SI joint degenerative change. 5. No definite suspicious bone lesion. RADIA
[2018-11-12] MEDS ORDERED: MORPHINE 2 MG/ML CARPUJECT IVP STA ×3 (06:09→07:14)
[2018-11-12 06:26] LABS: BASOPHILS % (AUTO) 0.6 %; EOSINOPHILS # (AUTO) 0.1 10^3/uL (0.0-0.7); HGB - HEMOGLOBIN 13.8 g/dL (12.0-16.0); LYMPHOCYTES # (AUTO) 1.6 10^3/uL (1.5-3.5); LYMPHOCYTES % (AUTO) 22.5 %; MEAN CORPUSCULAR HEMOGLOBIN 31.8 pg (27.0-31.0); MEAN CORPUSCULAR HGB CONC 34.1 g/dL (32.0-36.0); MEAN CORPUSCULAR VOLUME 93.2 fL (81.0-99.0); MEAN PLATELET VOLUME 7.8 fL (7.9-10.8); MONOCYTES # (AUTO) 1.6 10^3/uL (0.0-1.0); MONOCYTES % (AUTO) 23.4 %; NEUTROPHILS # (AUTO) 3.6 10^3/uL (1.5-6.6); NEUTROPHILS % (AUTO) 52.5 %; PLT - PLATELET COUNT 180 10^3/uL (130-450); RED BLOOD COUNT 4.34 10^6/uL (4.20-5.40); RED CELL DISTRIBUTION WIDTH 14.7 % (12.0-15.0); WHITE BLOOD COUNT 6.9 x10^3/uL (4.8-10.8)
[2018-11-12 06:33] LABS: INR 1.1 (0.8-1.2); PT - PROTHROMBIN TIME 12.1 secs (9.9-12.6)
[2018-11-12 06:34] LABS: CALCIUM 9.1 mg/dL (8.5-10.3); CREATININE 0.8 mg/dL (0.4-1.0)
[2018-11-12] MEDS ORDERED: ONDANSETRON 4 MG/2 ML VIAL IVP PRN ×2 (07:07→17:36)
[2018-11-12] MEDS ORDERED: SODIUM CHLORIDE FLUSH 0.9% 10 ML SYRINGE IVP PRN ×2 (07:07→17:36)
[2018-11-12] MEDS ORDERED: ONDANSETRON ODT 4 MG TABLET TL PRN (07:07)
[2018-11-12 07:12] LABS: BILIRUBIN,URINE NEGATIVE (NEGATIVE); GLUCOSE, URINE (UA) NEGATIVE (NEGATIVE); KETONES,URINE (UA) NEGATIVE (NEGATIVE); LEUKOCYTE ESTERASE, URINE NEGATIVE (NEGATIVE); NITRITE,URINE NEGATIVE (NEGATIVE); OCCULT BLOOD,URINE TRACE-INTA (NEGATIVE); PROTEIN,URINE NEGATIVE (NEGATIVE); UROBILINOGEN,URINE 0.2 (NORMAL) E.U./dL (NORMAL)
[2018-11-12 07:15] LABS: CLARITY,URINE CLEAR (CLEAR)
--- NOTE | 2018-11-12 07:44 | HISTORY & PHYSICAL EXAMINATION ---
Chief Complaint - Chief Complaint Chief Complaint: left hip pain History of Present Illness - Admitted From Admitted From:: [facility] - History Obtained From Records Reviewed: Yes History obtained from: Patient and medical records Exam Limitations: none - History of Present Illness HPI Comment/Other: Ms. Nair is an 88 year old female with a past medical history significant for hypothyroidism and frequent falls. She ambulates with a walker. Her last fall was 2 days ago and she reports she was seen in the ER. She currently resides at [facility], moving in roughly 2-3 weeks ago. Prior to that she was living at home. Patient presented to [facility] ER after sustaining a fall overnight. She reports getting up to go to the bathroom in the middle of the night without assistance. While sitting on the toilet she felt dizzy and fell over. This was an unwitnessed fall. She reports that she hit her head 'alittle bit', but doesnt remember what she hit it on. Denies losing consciousness. After the fall, she had excruciating left hip pain and presented to the ER. Imaging in the ER confirmed that she had a left cubcapital femur fracture. Orthopedic surgery was consulted and she was admitted to the hospitalist service. She will undergo surgical intervention today. History - Past Medical History Cardiovascular: reports: None Respiratory: reports: Tuberculosis Neuro: reports: CVA Endocrine/Autoimmune: reports: HyPOthyroidism GI: reports: Other : reports: Incontinence HEENT: reports: Other Psych: reports: Depression, Anxiety Musculoskeletal: reports: Osteoarthritis, Chronic back pain Derm: reports: Other MRSA Hx?: Yes Other Past Medical History: Metabolic encelphalopathy - Past Surgical History General: reports: Appendectomy, Bowel surgery, Other Ortho: reports: Knee replacement, Other (right hip surgery) HEENT: reports: Cataracts, Tonsil/Adenoidectomy - Family & Social History Living arrangement: Assisted living Living Situation: With caregiver(s) Social History Notes: Patient currently resides at [facility], where she reports she has been for the past 2-3 weeks. She has three children, all living in [place] - Substance History Use: Uses substance without health or social issues: NONE - POLST Patient has POLST: Yes POLST Status: DNR Meds/Allgy - Home Medications Home Medications: Ambulatory Orders Medication Instructions Recorded Confirmed Acetaminophen [Tylenol Extra 1,000 mg PO Q8HR PRN 08/14/18 11/12/18 Strength] Cholecalciferol (Vitamin D3) 1,000 unit PO DAILY 08/14/18 11/12/18 [Vitajoy Daily D] Multivitamin [Multiple Vitamins] 1 tab PO DAILY 08/14/18 11/12/18 Levothyroxine Sodium 50 mcg PO QDAC 08/15/18 11/12/18 Famotidine 20 mg PO BID 09/23/18 11/12/18 Polyethylene Glycol 3350 17 gm PO DAILY PRN 09/23/18 11/12/18 Senna [Senokot] 17.2 mg PO DAILY PRN 09/23/18 11/12/18 Bupropion HCl [Bupropion HCl Sr] 150 mg PO BID 11/12/18 11/12/18 Sertraline [Zoloft] 25 mg PO DAILY 11/12/18 11/12/18 - Allergies Allergies/Adverse Reactions: Allergies Allergy/AdvReac Type Severity Reaction Status Date / Time Penicillins Allergy Intermediate swelling Verified 11/05/18 19:08 phenytoin Allergy Unknown Verified 11/05/18 19:08 wheat AdvReac Intermediate malaise, Verified 11/05/18 19:08 headache, dizziness Review of Systems - Constitutional Constitutional: reports: Weakness. denies: Fever, Chills, Poor appetite - Eyes Eyes: denies: Vision loss - Ears, Nose & Throat Ears, Nose & Throat: denies: Ear pain - Cardiovascular Cariovascular: denies: Irregular heart rate, Palpitations, Chest pain - Respiratory Respiratory: denies: Cough, Sputum production, SOB at rest - Gastrointestinal Gastrointestinal: denies: Abdominal pain, Constipation, Diarrhea, Nausea, Vomiting - Genitourinary Genitourinary: denies: Dysuria, Frequency, Urgency - Musculoskeletal Musculoskeletal: reports: Limited range of motion, Other (left hip pain) - Integumentary Integumentary: denies: Rash - Neurological Neurological: reports: General weakness, Dizziness, Abnormal gait. denies: Headache - All Other Systems All Other Systems: reports: Reviewed and negative Prior Level of Functionality: Patient able to ambulate with walker. Currently lives in assisted living. Exam - Vital Signs Reviewed Vital Signs: Yes Vital Signs: Vital Signs x48h Temp Pulse Resp BP Pulse Ox 11/12/18 06:47 70 16 133/66 H 94 11/12/18 05:00 70 95 11/12/18 04:52 36.0 C L 76 18 169/88 H 96 - Physical Exam General Appearance: positive: No acute distress, Alert Eyes Bilateral: positive: Normal inspection, PERRL, EOMI ENT: positive: ENT inspection nml, Pharynx nml Neck: positive: Nml inspection, No JVD Respiratory: positive: Chest non-tender, No respiratory distress, Breath sounds nml. negative: Wheezes, Rales, Rhonchi Cardiovascular: positive: Regular rate & rhythm, No murmur, No gallop Peripheral Pulses: positive: 1+ Abdomen: positive: Non-tender, Nml bowel sounds, No distention Skin: positive: Other (Multiple areas of ecchymosis in various stages of healing seen on forehead/nose, chin, left knee) Extremities: positive: No pedal edema, Other (left hip tender to touch) Neurologic/Psychiatric: positive: Oriented x3, CN's nml (2-12), Sensation nml, Mood/affect nml, Weakness Conclusion/Plan - Problem List (1) Hip fracture, left Conclusion/Plan: s/p fall. fracture seen on xray. Orthopedic surgeon plans to take to the OR today. Plan: admit for observation pain control NPO for OR today PT consult after surgery Qualifiers: Encounter type: initial encounter Fracture type: closed Qualified Code(s): S72.002A - Fracture of unspecified part of neck of left femur, initial encounter for closed fracture (2) History of fall within past 90 days Conclusion/Plan: Patient with multiple stages of healing ecchymosis to her face and legs. She reports her last fall prior to the one requiring admission was two days ago. She does not remember the details of the falls, but reports that she does fall often. In reviewing records, she recently moved into [facility] at [facility] from a stay at a SNF after hospitalization for a fall at the end of September 2018. Plan: PT consult after surgery Fall precautions (3) Hypokalemia Conclusion/Plan: Potassium 3.4 on admission. Plan: replace with 10 mEq KCL before surgery. Once able to take in PO after surgery, plan to give another 20 mEq. (4) Hypothyroidism Conclusion/Plan: continue home dose of levothyroxine Qualifiers: Hypothyroidism type: acquired Qualified Code(s): E03.9 - Hypothyroidism, unspecified (5) DNR (do not resuscitate) Conclusion/Plan: Patient wishes to be a DNR. - Lab Results Fish Bones: 11/12/18 06:15 11/12/18 06:15 - Diagnostic Imaging Results Diagnostic Imaging Results: positive: Final report reviewed Diagnostic Imaging Results Comments: 11/12/2018 -- mild impacted and mild to moderate dorsal angulated supcapital fracture of the left femur Core Measures - Anticipated LOS I expect patient to be DC'd or transferred within 96 hours.: Yes - DVT/VTE - Prophylaxis VTE/DVT Prophylaxis med ordered at admit?: Yes
--- NOTE | 2018-11-12 07:48 | XRAY Report ---
Reason: preop, hx of cough Procedure Date: 11/12/2018 Accession Number: [id number] / [id number] Procedure: XR - Chest 1 View X-Ray CPT Code: 30599 FULL RESULT: EXAM: CHEST RADIOGRAPHY EXAM DATE: 11/12/2018 07:30 AM. CLINICAL HISTORY: Cough. Preoperative exam for hip surgery. COMPARISON: CHEST 2 VIEW 09/23/2018 5:42 PM. TECHNIQUE: 1 view. FINDINGS: Lungs/Pleura: No alveolar consolidation or pleural effusion seen. No pneumothorax. Mediastinum: With a exam limitations, cardiomediastinal silhouette is unremarkable. Other: Osteopenia. Multiple left rib fractures which are probably old. IMPRESSION: 1. No acute abnormality seen in the chest. RADIA
[2018-11-12] MEDS: SODIUM CHLORIDE FLUSH 0.9% 10 ML SYRINGE IVP SCH ×2 (08:18→19:09)
[2018-11-12] MEDS: SODIUM CHLORIDE 0.9% 1,000 ML IV SCH ×2 (08:22→19:08)
[2018-11-12] MEDS: MORPHINE 2 MG/ML CARPUJECT IVP PRN ×3 (10:48→21:21)
[2018-11-12] MEDS: POLYETHYLENE GLYCOL 3350 17 GM PACKET PO SCH (10:50)
--- NOTE | 2018-11-12 12:23 | ANESTHESIA ---
Pre-Anesthesia VS, & Labs - Diagnosis left hip fracture - Procedure left hip pinning Vital Signs: Temp Pulse Resp BP Pulse Ox 36.8 C 67 18 125/62 93 11/12/18 08:45 11/12/18 08:45 11/12/18 08:45 11/12/18 08:45 11/12/18 08:45 Height 5 ft 7 in Weight (kg) 68.5 kg Body Mass Index 23.6 - NPO >8 hours - Is Patient ?: No - Lab Results Current Lab Results: Laboratory Tests 11/12/18 06:15: Sodium 135, Potassium 3.4 L, Chloride 97 L, Carbon Dioxide 29, Anion Gap 9.0, BUN 14, Creatinine 0.8, Estimated GFR (MDRD) 68 L, Glucose 99, C alcium 9.1 11/12/18 06:15: PT 12.1, INR 1.1, APTT 25.4 11/12/18 06:15: WBC 6.9, RBC 4.34, Hgb 13.8, Hct 40.5, MCV 93.2, MCH 31.8 H, MCHC 34.1, RDW 14.7, Plt Count 180, MPV 7.8 L, Neut # (Auto) 3.6, Lymph # (Auto) 1.6, Millard # (Auto) 1.6 H, Eos # (Auto) 0.1, Baso # (Auto) 0.0, Absolute Nucleated RBC 0.01, Nucleated RBC % 0.2 Fish Bones: 11/12/18 06:15 11/12/18 06:15 Home Medications and Allergies Home Medications: Ambulatory Orders Bupropion HCl [Bupropion HCl Sr] 150 mg PO BID 11/12/18 Sertraline [Zoloft] 25 mg PO DAILY 11/12/18 Active Medications Sodium Chloride (Normal Saline 0.9%) 1,000 mls @ 100 mls/hr IV .Q10H YANA Last Admin: 11/12/18 08:22 Dose: 100 mls/hr Morphine Sulfate (Morphine (Carpuject)) 2 mg IVP Q2HR PRN PRN Reason: Pain 8 to 10 Last Admin: 11/12/18 10:48 Dose: 2 mg Ondansetron HCl (Zofran Inj) 4 mg IVP Q6HR PRN PRN Reason: Nausea / Vomiting Ondansetron HCl (Zofran Odt) 4 mg TL Q6HR PRN PRN Reason: Nausea / Vomiting Last Admin: 11/12/18 10:47 Dose: 4 mg Polyethylene Glycol (Miralax) 17 gm PO DAILY [facility] Last Admin: 11/12/18 10:50 Dose: Not Given Sodium Chloride (Normal Saline Flush 0.9%) 10 ml IVP PRN PRN PRN Reason: NEEDED PER PROVIDER ORDERS Sodium Chloride (Normal Saline Flush 0.9%) 10 ml IVP 0100,0900,1700 [facility] Last Admin: 11/12/18 08:18 Dose: 10 ml Acetaminophen [Tylenol Extra Strength] 1,000 mg PO Q8HR PRN 08/14/18 Cholecalciferol (Vitamin D3) [Vitajoy Daily D] 1,000 unit PO DAILY 08/14/18 Multivitamin [Multiple Vitamins] 1 tab PO DAILY 08/14/18 Levothyroxine Sodium 50 mcg PO QDAC 08/15/18 Famotidine 20 mg PO BID 09/23/18 Polyethylene Glycol 3350 17 gm PO DAILY PRN 09/23/18 Senna [Senokot] 17.2 mg PO DAILY PRN 09/23/18 Bupropion HCl [Bupropion HCl Sr] 150 mg PO BID 11/12/18 Sertraline [Zoloft] 25 mg PO DAILY 11/12/18 Allergies/Adverse Reactions: Allergies Allergy/AdvReac Type Severity Reaction Status Date / Time Penicillins Allergy Intermediate swelling Verified 11/05/18 19:08 phenytoin Allergy Unknown Verified 11/05/18 19:08 wheat AdvReac Intermediate malaise, Verified 11/05/18 19:08 headache, dizziness Anes History & Medical History - Anesthetic History Anesthesia Complications: reports: No previous complications - Medical History Cardiovascular: reports: None Pulmonary: reports: Tuberculosis Gastrointestinal: reports: Other Urinary: reports: Incontinence Neuro: reports: CVA Musculoskeletal: reports: Osteoarthritis, Chronic back pain Endocrine/Autoimmune: reports: HyPOthyroidism Blood Disorders: reports: None Skin: reports: Other Smoking Status: Never smoker Other Past Medical History: Metabolic encelphalopathy - Surgical History General: Appendectomy, Bowel surgery Eyes Ears Nose Throat (EENT): Cataracts, Tonsil/Adenoidectomy Orthopedic: Knee replacement Exam General: Oriented x3 Plan Anesthesia Type: General Consent for Procedure(s) Verified and Reviewed: Yes Code Status: Attempt Resuscitation ASA classification: 3-Severe systemic disease Is this case an emergency?: Yes
[2018-11-12] MEDS ORDERED: BUPIVACAINE 0.25%-EPI 1:200000 PF 30 ML VIAL ONE (13:12)
[2018-11-12] MEDS ORDERED: POTASSIUM CHLOR 10 MEQ/100 ML 10 MEQ/100 ML BAG IV ONE (14:15)
--- NOTE | 2018-11-12 14:41 | CONSULTATION NOTE ---
Referring Provider Name of Referring Provider:: Ainbal Meadows MD Consult Date: 11/12/18 Chief Complaint - Chief Complaint Chief Complaint: Asked to see patient in consultation for left subcap femoral neck fracture History of Present Illness - History Obtained From History obtained from: Patient, daughter, medical record - History of Present Illness HPI Comment/Other: Left hip pain Asked to evaluate patient in consultation for left hip fracture by emergency medicine physician Patient is an 88-year-old female who recently moved to [facility] about 2-3 weeks ago with a history of multiple falls. She has history of hypothyroidism. She uses a walker for ambulation and has by report of her daughter Albina had more difficult time ambulating with frequent falls recently. Patient was admitted through the emergency department and found to have a left femoral neck fracture. Patient is seen and evaluated in the hospital room. Patient points to the left groin region as the location of significant pain if she tries to move. She denies other traumatic complaints at this time. 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 She has three children, all living in [place] - Substance History Use: Uses substance without health or social issues: NONE - POLST Patient has POLST: Yes POLST Status: DNR Meds/Allgy - Home Medications Home Medications: Ambulatory Orders Medication Instructions Recorded Confirmed Acetaminophen [Tylenol Extra 1,000 mg PO Q8HR PRN 08/14/18 11/12/18 Strength] Cholecalciferol (Vitamin D3) 1,000 unit PO DAILY 08/14/18 11/12/18 [Vitajoy Daily D] Multivitamin [Multiple Vitamins] 1 tab PO DAILY 08/14/18 11/12/18 Levothyroxine Sodium 50 mcg PO QDAC 08/15/18 11/12/18 Famotidine 20 mg PO BID 09/23/18 11/12/18 Polyethylene Glycol 3350 17 gm PO DAILY PRN 09/23/18 11/12/18 Senna [Senokot] 17.2 mg PO DAILY PRN 09/23/18 11/12/18 Bupropion HCl [Bupropion HCl Sr] 150 mg PO BID 11/12/18 11/12/18 Sertraline [Zoloft] 25 mg PO DAILY 11/12/18 11/12/18 - Allergies Allergies/Adverse Reactions: Allergies Allergy/AdvReac Type Severity Reaction Status Date / Time Penicillins Allergy Intermediate swelling Verified 11/05/18 19:08 phenytoin Allergy Unknown Verified 11/05/18 19:08 wheat AdvReac Intermediate malaise, Verified 11/05/18 19:08 headache, dizziness Exam - Vital Signs Vital Signs: Vital Signs x48h Temp Pulse Pulse Resp BP BP Pulse Ox 11/12/18 08:45 36.8 C 67 18 125/62 93 11/12/18 06:47 70 16 133/66 H 94 - Physical Exam Comments/Other: Patient is a well-developed well-nourished 88-year-old female In no acute distress. She is in a hospital bed reports comfort and less she tries to move even slightly when she reports left hip pain. Patient's left lower extremity shows no gross deformity. She has palpable dorsalis pedis. She is able to flex and extend toes and ankle. Small movements of any sort to do because of left groin pain. She has no palpable tenderness about the foot ankle calf knee or thigh appreciated skin overlying the left hip girdle region is intact.Thigh and calf compartments soft. Conclusion/Plan - Diagnosis Diagnosis: Left minimally displaced valgus impacted subcapital femoral neck fracture - Plan Plan: Ammy is a 88-year-old female with multiple medical history and a minimally displaced valgus impacted left femoral neck fracture. I discussed the injury with her and her daughter Albina Farias who is her DURABLE POWER OF RELIGIOUS EDUCATION TEACHER phone #[phone], [phone]. We discussed the patient's injury the natural history of this type of injury and the potential short-term and long-term problems. We discussed potential operative risks including but not limited to infection wound problems, decreased function in any manner, blood clot, blood clot embolus positioning complications potential anesthetic complications including but not limited to major cardiovascular neurovascular complications even . We talked about nerve or blood vessel injury, worsening of her condition, failure to "cure" patient's problem, iatrogenic injury, need for additional procedures, need for conversion in the future to hemiarthroplasty or additional procedure. We talked about other related risks that may include but certainly not limited to pneumonia, bedsores, blood clot, loss of ambulatory ability, especially in light of the patient's age, comorbidities, and activity level. The patient had questions answered, and the patient's daughter Albina had questions that were answered. She verbalized understanding of the above and verbalized her wish to proceed with operative treatment. Informed consent was given. 2 nurse consent is also to be documented in the chart. Patient will be on perioperative antibiotics perioperative DVT prophylaxis. Perioperative plan discussed potential overall risk to the patient given the injury and proposed procedure and the patient's baseline medical conditions age and activity level are reviewed. Patient proposed procedure left hip mini open pinning, possible hemiarthroplasty. - Lab Results Fish Bones: 11/12/18 06:15 11/12/18 06:15
[2018-11-12] MEDS ORDERED: VANCOMYCIN INJ 1 GM in SODIUM CHLORIDE 0.9% 250 ML IV STA (15:01)
[2018-11-12] MEDS ORDERED: POLYETHYLENE GLYCOL 3350 17 GM PACKET PO PRN (15:27)
[2018-11-12] MEDS ORDERED: SENNA 8.6 MG TABLET PO PRN (15:27)
[2018-11-12] MEDS ORDERED: ONDANSETRON 4 MG/2 ML VIAL IVP ONE (16:00)
[2018-11-12] MEDS ORDERED: ePHEDrine 50 MG/ML VIAL IVP ONE (16:00)
[2018-11-12] MEDS ORDERED: fentaNYL 100 MCG/2 ML VIAL IVP ONE (16:00)
[2018-11-12] MEDS ORDERED: PROPOFOL 200 MG/20 ML VIAL IVP ONE (16:00)
[2018-11-12] MEDS ORDERED: ROCURONIUM 50 MG/5 ML VIAL IVP ONE (16:00)
[2018-11-12] MEDS ORDERED: DEXAMETHASONE 4 MG/ML VIAL IVP ONE (16:00)
[2018-11-12] MEDS ORDERED: LIDOCAINE-MPF 2% 5 ML VIAL IM ONE (16:00)
[2018-11-12] MEDS ORDERED: ACETAMINOPHEN 1,000 MG/100 ML 100 ML IV ONE (16:00)
[2018-11-12] MEDS ORDERED: SODIUM CHLORIDE 0.9% 600 ML IV ONE (16:19)
[2018-11-12] MEDS ORDERED: LACTATED RINGERS 1,000 ML IV ONE (17:04)
[2018-11-12] MEDS ORDERED: PROCHLORPERAZINE 10 MG/2 ML VIAL IVP PRN (17:36)
[2018-11-12] MEDS ORDERED: ACETAMINOPHEN 1,000 MG/100 ML 100 ML IV PRN (17:36)
--- NOTE | 2018-11-12 17:36 | IMMEDIATE POSTOPERATIVE NOTE ---
Immediate Postoperative Note - Procedure Note Procedure Date: 11/12/18 Pre-Op Diagnosis: Left valgus impacted minimally displaced femoral neck fracture Procedure: Left mini open hip pinning Post-Op Diagnosis: Same Primary Surgeon: Juan Jose Wills MD Clinical Support Tech: none Anesthesia Type: General ET tube Findings: As above Complications: No complications Estimated Blood Loss (in cc): 25 Plan of Care: Patient tolerated procedure well instrument and sponge counts were correct patient was extubated and transferred to the recovery room in stable condition. Patient will follow standard postoperative left hip mini open pinning protocol. She will be toe-touch weightbearing left lower extremity. She will be out of bed with assist full assistance and assistive device as necessary. She will be on perioperative antibiotics and perioperative DVT prophylaxis. She will return to hospital service with close orthopedic management. Patient's daughter Albina Farias was contacted. Case was discussed. Questions were answered. She verbalized understanding and agreement with the plan as outlined.
[2018-11-12] MEDS: fentaNYL 100 MCG/2 ML VIAL ONE ×2 (18:00→18:08)
[2018-11-12 19:10] LABS: BASOPHILS % (AUTO) 0.5 %; EOSINOPHILS % (AUTO) 0.6 %; HGB - HEMOGLOBIN 13.1 g/dL (12.0-16.0); LYMPHOCYTES % (AUTO) 14.3 %; MEAN CORPUSCULAR HEMOGLOBIN 31.3 pg (27.0-31.0); MEAN CORPUSCULAR VOLUME 94.8 fL (81.0-99.0); MEAN PLATELET VOLUME 7.8 fL (7.9-10.8); MONOCYTES % (AUTO) 15.6 %; PLT - PLATELET COUNT 177 10^3/uL (130-450); RED CELL DISTRIBUTION WIDTH 14.7 % (12.0-15.0); WHITE BLOOD COUNT 9.2 x10^3/uL (4.8-10.8)
[2018-11-12 19:13] LABS: ABNORMAL LYMPHS % (MANUAL) 0 %
--- NOTE | 2018-11-12 19:13 | XRAY Report ---
Reason: Left Hip C-arm images Procedure Date: 11/12/2018 Accession Number: [id number] / [id number] Procedure: XR - Hip w/Pelvis 1V LT CPT Code: FULL RESULT: EXAM: HIP/PELVIS RADIOGRAPHY EXAM DATE: 11/12/2018 04:32 PM. CLINICAL HISTORY: Left hip fracture. COMPARISON: HIP W/PELVIS 2-3V LT 11/12/2018 5:20 AM. TECHNIQUE: 2 spot views. FINDINGS: 2 spot films document placement of 3 screws across a left femoral neck fracture. IMPRESSION: Femoral neck fracture fixation. RADIA
[2018-11-12 19:17] LABS: CALCIUM 8.4 mg/dL (8.5-10.3); CREATININE 0.6 mg/dL (0.4-1.0)
[2018-11-12 19:25] LABS: BAND NEUTROPHILS % (MANUAL) 5 %; DIFFERENTIAL COMMENT MANUAL DIFFERENTIAL; EOSINOPHILS # (MANUAL) 0.2 10^3/uL (0-0.7); LYMPHOCYTES % (MANUAL) 11 %; MONOCYTES # (MANUAL) 1.2 10^3/uL (0.0-1.0); NEUTROPHILS # (MANUAL) 6.8 10^3/uL (1.5-6.6); NEUTROPHILS % (MANUAL) 69 %; PLATELET ESTIMATE, MANUAL NORMAL (130-450,000) (NORMAL); PLATELET MORPHOLOGY NORMAL APPEARANCE (NORMAL); RBC MORPHOLOGY (MULTIPLE) NORMAL APPEARANCE (NORMAL)
[2018-11-12] MEDS: FAMOTIDINE 20 MG TABLET PO SCH (21:21)
[2018-11-12] MEDS: buPROPion SR 150 MG TABLET PO SCH (21:21)
[2018-11-13] MEDS: SODIUM CHLORIDE FLUSH 0.9% 10 ML SYRINGE IVP SCH ×6 (00:46→23:02)
[2018-11-13] MEDS: SODIUM CHLORIDE 0.9% 1,000 ML IV SCH ×3 (01:52→22:00)
[2018-11-13] MEDS: MORPHINE 2 MG/ML CARPUJECT IVP PRN ×4 (02:18→11:49)
--- NOTE | 2018-11-13 04:23 | OPERATIVE REPORT ---
DATE OF SERVICE: 11/12/2018 Physician: Juan Jose Wills MD PREOPERATIVE DIAGNOSIS: Left subcapital femoral neck fracture, minimally displaced valgus impacted. POSTOPERATIVE DIAGNOSIS: Left subcapital femoral neck fracture, minimally displaced valgus impacted. PROCEDURE: Left hip mini open screw fixation/pinning. INTRAOPERATIVE COMPLICATIONS: None noted. ORTHOPEDIC IMPLANTS: Synthes 7.3 cannulated stainless steel screw, short thread x3. ESTIMATED BLOOD LOSS: Less than 25 mL. PREOPERATIVE ANTIBIOTICS: Weight-based IV vancomycin. FLUIDS: 600 mL of lactated Ringer's. HISTORY OF PRESENT ILLNESS AND INDICATIONS: Patient is an 88-year-old female who has sustained multiple falls recently. She has multiple medical history. She was found to have a left subcapital femoral neck fracture and an orthopedic consultation is sought through the emergency department. The patient and the patient's daughter and durable power of economics department chair, Albina Farias, had the injury discussed. We talked about the natural history of this type of injury and the potential for short-term and long-term problems with this injury, as well as associated problems that may arise from the trauma and the mobility related. With the patient's daughter, Albina, via telephone, we discussed potential operative risks including but not limited to infection, wound problems, nerve or blood vessel injury, numbness, weakness iatrogenic injury, bleeding, blood loss, blood clot, blood clot embolus, positioning complications; anesthetic complications including but not limited to major cardiovascular, neurovascular complications, and even . We talked about the fact of many other risks not addressed here. She verbalized understanding of the above, verbalized her wish to proceed with operative treatment. Informed consent was given. PROCEDURE: On 11/12/2018, after appropriate medical evaluation, risk stratification and optimization, patient is brought to the operating room after left hip is identified as the operative site. Patient is given preoperative weight-based IV antibiotics. She is placed initially in the hospital bed with general anesthesia administered and then gently transferred to the fracture table. Head, neck and extremities are placed in anatomically comfortable and safe position to avoid peripheral nerve stretch and compression. Patient's contralateral right lower extremity is placed in a maximal safe zone of flexion, abduction and internal rotation, and placed in a padded leg rest with an SCD boot in place. Patient's operative left lower extremity is well padded and on the foot and then placed in a foot ace. No reduction maneuver is performed. At this point, after fluoroscopic image confirms appropriate position of the fracture, the patient's left hip and left thigh are pre-scrubbed with chlorhexidine, and then ultimately ChloraPrep prep and drape is performed with a shower curtain device. At this time, surgical pause, again confirms the left hip as the operative site and then a guide pin is used with fluoroscopic guidance. Skin is marked and then a small incision is made such that a guide pin could be placed in the inferior aspect of the femoral neck and head. Once this is placed through the lateral cortex through the neck into the inferior aspect of the head, 2 additional inverted triangle type guide pins are placed from the 7.3 cannulated screw set. Once these are noted to be in acceptable position, taking advantage of harder posterior inferior bone, the outer cortex is drilled. These screw lengths are measured and then short thread, partially threaded 7.3 cannulated screws are placed. The most superior and inferior have the best purchase, but all have good purchase with hand tightening. At this point, guide pins are removed. The screws are noted to be appropriate length and then confirmed under live fluoroscopic image to be extraarticular. At this point, the wound is copiously irrigated. Hemostasis is achieved. Deep layer is closed with 0 Vicryl suture. Superficial is closed with 2-0 Vicryl suture and then ultimately elzbieta. Skin is washed and dried, and then silver dressing is applied. Patient tolerated the procedure well. Instrument and sponge counts are correct. Patient is extubated and transferred to the recovery room in stable condition. Patient will be on perioperative aspirin for DVT prophylaxis. She was dosed with vancomycin preoperatively for perioperative antibiosis. Patient will be toe-touch weightbearing, left lower extremity, and use full assistance and an assist device as necessary. She will have physical therapy, occupational therapy and social work consultations. She will return to the medical service with close orthopedic management. Patient's daughter, Albina, is called. The case is discussed. Postoperative plans reviewed. Patient and daughter's questions are answered. She verbalizes understanding and satisfaction with the plan as outlined. TD: 11/12/2018 18:01 IVY
[2018-11-13] MEDS: PHENAZOPYRIDINE 100 MG TABLET PO SCH ×3 (05:57→22:12)
[2018-11-13] MEDS: LEVOTHYROXINE 25 MCG TABLET PO SCH (06:01)
[2018-11-13] MEDS: MULTIVITAMIN TABLET PO SCH (08:11)
[2018-11-13] MEDS: ACETAMINOPHEN 325 MG TABLET PO PRN ×3 (08:11→22:10)
[2018-11-13] MEDS: buPROPion SR 150 MG TABLET PO SCH ×2 (08:12→22:12)
[2018-11-13] MEDS: CHOLECALCIFEROL 1,000 UNIT TABLET PO SCH (08:12)
[2018-11-13] MEDS: ASPIRIN 325 MG TABLET PO SCH (08:12)
[2018-11-13] MEDS: SERTRALINE 25 MG TABLET PO SCH (08:12)
[2018-11-13] MEDS: POLYETHYLENE GLYCOL 3350 17 GM PACKET PO SCH (08:13)
[2018-11-13] MEDS: FAMOTIDINE 20 MG TABLET PO SCH ×2 (08:13→22:17)
--- NOTE | 2018-11-13 08:21 | PROVIDER PROGRESS NOTE ---
Subjective - Prog Note Date Prog Note Date: 11/13/18 - Subjective Subjective: Patient says night was horrible as she couldn't sleep. Denies pain at rest. Objective - Vital Signs/Intake & Output Vital Signs: Vital Signs x48h Temp Pulse Resp BP Pulse Ox 11/13/18 04:31 37.4 C 97 20 157/89 H 96 Intake & Output: Intake & Output 11/10/18 11/11/18 11/12/18 11/13/18 23:59 23:59 23:59 23:59 Intake Total 1250 673.333 Output Total 1050 Balance 200 673.333 - Objective General Appearance: positive: Alert (Awake, easily cooperative with exam and communicating events of night, some minimal word searching) - Lab Results Fish Bones: 11/12/18 19:03 11/12/18 19:03 Other Labs: Lab Results x24hrs 11/12/18 11/12/18 Range/Units 19:03 19:03 WBC 9.2 (4.8-10.8) x10^3/uL RBC 4.20 (4.20-5.40) 10^6/uL Hgb 13.1 (12.0-16.0) g/dL Hct 39.8 (37.0-47.0) % MCV 94.8 (81.0-99.0) fL MCH 31.3 H (27.0-31.0) pg MCHC 33.0 (32.0-36.0) g/dL RDW 14.7 (12.0-15.0) % Plt Count 177 (130-450) 10^3/uL MPV 7.8 L (7.9-10.8) fL Neut # (Auto) Not Reportable Lymph # (Auto) Not Reportable [place] # (Auto) Not Reportable Eos # (Auto) Not Reportable Baso # (Auto) Not Reportable Absolute Nucleated RBC Not Reportable Total Counted 100 Band Neuts % (Manual) 5 (0 - 10) % Abnorm Lymph % (Manual) 0 % Nucleated RBC % Not Reportable Neutrophils # (Manual) 6.8 H (1.5-6.6) 10^3/uL Lymphocytes # (Manual) 1.0 L (1.5-3.5) 10^3/uL Monocytes # (Manual) 1.2 H (0.0-1.0) 10^3/uL Eosinophils # (Manual) 0.2 (0-0.7) 10^3/uL Basophils # (Manual) 0.0 (0-0.1) 10^3/uL Differential Comment MANUAL DIFFERENTIAL Manual Slide Review Indicated WBC Morphology NORMAL APPEARANCE (NORMAL) Platelet Estimate NORMAL (130-450,000) (NORMAL) Platelet Morphology NORMAL APPEARANCE (NORMAL) RBC Morph Micro Appear NORMAL APPEARANCE (NORMAL) Sodium 133 L (135-145) mmol/L Potassium 3.9 (3.5-5.0) mmol/L Chloride 97 L (101-111) mmol/L Carbon Dioxide 29 (21-32) mmol/L Anion Gap 7.0 (6-13) BUN 11 (6-20) mg/dL Creatinine 0.6 (0.4-1.0) mg/dL Estimated GFR (MDRD) 94 (>89) Glucose 116 H (70-100) mg/dL Calcium 8.4 L (8.5-10.3) mg/dL - Other Results/Comments Other Results/Comments: NV unchanged distally LLE. Foot pumps in place. No obvious calf TTP. Left hip dressing, single blood stain dry. no surrounding erythema. edge of dressing slightly peeled up, but still sealed. Assessment/Plan - Problem List (1) Hip fracture, left Impression: Patient ortho stable. Recommend place tegaderm to reinforce dressing. Cont analgesia, dvt prophylaxis chemical and mechanical, incentive spirometer q1h while awake, oob with full assist and pt, cont med mgt, and observation. Qualifiers: Encounter type: subsequent encounter Fracture type: closed Fracture healing: with routine healing Qualified Code(s): S72.002D - Fracture of unspecified part of neck of left femur, subsequent encounter for closed fracture with routine healing
[2018-11-13 09:58] LABS: BILIRUBIN,URINE NEGATIVE (NEGATIVE); GLUCOSE, URINE (UA) NEGATIVE (NEGATIVE); KETONES,URINE (UA) TRACE mg/dL (NEGATIVE); LEUKOCYTE ESTERASE, URINE NEGATIVE (NEGATIVE); NITRITE,URINE NEGATIVE (NEGATIVE); OCCULT BLOOD,URINE NEGATIVE (NEGATIVE); PROTEIN,URINE NEGATIVE (NEGATIVE); UROBILINOGEN,URINE 0.2 (NORMAL) E.U./dL (NORMAL)
[2018-11-13 10:00] LABS: CLARITY,URINE CLEAR (CLEAR)
[2018-11-13 10:17] LABS: BACTERIA,URINE Rare /HPF (None Seen); RBC,URINE 0-5 /HPF (0-5); SQUAMOUS EPITHELIAL CELL,UR NONE SEEN (<= Few)
--- NOTE | 2018-11-13 11:46 | PROVIDER PROGRESS NOTE ---
Subjective - Prog Note Date Prog Note Date: 11/13/18 Prog Note Time: 08:00 - Subjective Subjective: She is awake and confused compared to yesterday She is able to answer orientation questions, but at times she has word finding abilities Complains of left leg pain 9/10 Complained of urgency, frequency and dysuria overnight, pyridium was ordered. She did not receive a urinary catheter during the procedure. UA negative Current Medications - Current Medications Current Medications: Active Medications Acetaminophen (Tylenol) 650 - 975 mg PO Q4HR PRN PRN Reason: PAIN Last Admin: 11/13/18 08:11 Dose: 975 mg Aspirin (Genie) 325 mg PO DAILYWM [facility] Last Admin: 11/13/18 08:12 Dose: 325 mg Bupropion HCl (Wellbutrin Sr) 150 mg PO BID [facility] Last Admin: 11/13/18 08:12 Dose: 150 mg Cholecalciferol (Vitamin D3) 1,000 unit PO DAILY [facility] Last Admin: 11/13/18 08:12 Dose: 1,000 unit Docusate Sodium (Colace 100mg Capsule) 100 mg PO BID PRN PRN Reason: Constipation Famotidine (Pepcid) 20 mg PO BID [facility] Last Admin: 11/13/18 08:13 Dose: 20 mg Sodium Chloride (Normal Saline 0.9%) 1,000 mls @ 100 mls/hr IV .Q10H [facility] Last Admin: 11/13/18 11:53 Dose: 100 mls/hr Acetaminophen (Ofirmev) 100 mls @ 400 mls/hr IV Q6HR PRN PRN Reason: PAIN Levothyroxine Sodium (Synthroid) 50 mcg PO QDAC [facility] Last Admin: 11/13/18 06:01 Dose: 50 mcg Morphine Sulfate (Morphine (Carpuject)) 2 mg IVP Q2HR PRN PRN Reason: Pain 8 to 10 Last Admin: 11/13/18 11:49 Dose: 2 mg Multivitamins (Theragran) 1 tab PO DAILYWM [facility] Last Admin: 11/13/18 08:11 Dose: 1 tab Ondansetron HCl (Zofran Inj) 4 mg IVP Q6HR PRN PRN Reason: Nausea / Vomiting Ondansetron HCl (Zofran Odt) 4 mg TL Q6HR PRN PRN Reason: Nausea / Vomiting Last Admin: 11/12/18 10:47 Dose: 4 mg Ondansetron HCl (Zofran Inj) 4 mg IVP Q6HR PRN PRN Reason: Nausea / Vomiting Phenazopyridine HCl (Pyridium) 100 mg PO TID [facility] Last Admin: 11/13/18 05:57 Dose: 100 mg Polyethylene Glycol (Miralax) 17 gm PO DAILY [facility] Last Admin: 11/13/18 08:13 Dose: 17 gm Prochlorperazine Edisylate (Compazine Inj) 10 mg IVP Q6HR PRN PRN Reason: Nausea / Vomiting Senna (Senokot) 17.2 mg PO DAILY PRN PRN Reason: Constipation Sertraline HCl (Zoloft) 25 mg PO DAILY [facility] Last Admin: 11/13/18 08:12 Dose: 25 mg Sodium Chloride (Normal Saline Flush 0.9%) 10 ml IVP PRN PRN PRN Reason: NEEDED PER PROVIDER ORDERS Sodium Chloride (Normal Saline Flush 0.9%) 10 ml IVP 0100,0900,1700 [facility] Last Admin: 11/13/18 08:13 Dose: Not Given Sodium Chloride (Normal Saline Flush 0.9%) 10 ml IVP 0100,0900,1700 [facility] Last Admin: 11/13/18 08:13 Dose: Not Given Sodium Chloride (Normal Saline Flush 0.9%) 10 ml IVP PRN PRN PRN Reason: NEEDED PER PROVIDER ORDERS Home Medications: Acetaminophen [Tylenol Extra Strength] 1,000 mg PO Q8HR PRN 08/14/18 Cholecalciferol (Vitamin D3) [Vitajoy Daily D] 1,000 unit PO DAILY 08/14/18 Multivitamin [Multiple Vitamins] 1 tab PO DAILY 08/14/18 Levothyroxine Sodium 50 mcg PO QDAC 08/15/18 Famotidine 20 mg PO BID 09/23/18 Polyethylene Glycol 3350 17 gm PO DAILY PRN 09/23/18 Senna [Senokot] 17.2 mg PO DAILY PRN 09/23/18 Bupropion HCl [Bupropion HCl Sr] 150 mg PO BID 11/12/18 Sertraline [Zoloft] 25 mg PO DAILY 11/12/18 Objective - Vital Signs/Intake & Output Reviewed Vital Signs: Yes Vital Signs: Vital Signs x48h Temp Pulse Pulse Resp BP Pulse Ox 11/13/18 10:13 37.7 C H 88 20 93 11/13/18 07:25 37.7 C H 87 20 156/66 H 92 11/13/18 04:31 37.4 C 97 20 157/89 H 96 Intake & Output: Intake & Output 11/10/18 11/11/18 11/12/18 11/13/18 23:59 23:59 23:59 23:59 Intake Total 1250 733.333 Output Total 1050 800 Balance 200 -66.667 - Objective General Appearance: positive: No acute distress, Alert Eyes Bilateral: positive: Normal inspection, PERRL, EOMI ENT: positive: No signs of dehydration Neck: positive: Nml inspection, Trachea midline Respiratory: positive: No respiratory distress, Breath sounds nml. negative: Rales, Rhonchi Cardiovascular: positive: Regular rate & rhythm. negative: No murmur, No gallop, Tachycardia Peripheral Pulses: 1+ Dorsalis pedis (R), 1+ Dorsalis pedis (L) Abdomen: positive: Non-tender, Nml bowel sounds, No distention Skin: positive: Warm, Dry, Other (Multiple areas of ecchymosis in various stages of healing seen on forehead/nose, chin, left knee) Extremities: positive: No pedal edema, Other (left hip pinning site with surgical dressing in place) Neurologic/Psychiatric: positive: Oriented x3, CN's nml (2-12), Motor nml, Sensation nml, Mood/affect nml, Weakness - Lab Results Fish Bones: 11/12/18 19:03 11/12/18 19:03 Other Labs: Lab Results x24hrs 11/13/18 11/12/18 11/12/18 Range/Units 08:30 19:03 19:03 WBC 9.2 (4.8-10.8) x10^3/uL RBC 4.20 (4.20-5.40) 10^6/uL Hgb 13.1 (12.0-16.0) g/dL Hct 39.8 (37.0-47.0) % MCV 94.8 (81.0-99.0) fL MCH 31.3 H (27.0-31.0) pg MCHC 33.0 (32.0-36.0) g/dL RDW 14.7 (12.0-15.0) % Plt Count 177 (130-450) 10^3/uL MPV 7.8 L (7.9-10.8) fL Neut # (Auto) Not Reportable Lymph # (Auto) Not Reportable [place] # (Auto) Not Reportable Eos # (Auto) Not Reportable Baso # (Auto) Not Reportable Absolute Nucleated RBC Not Reportable Total Counted 100 Band Neuts % (Manual) 5 (0 - 10) % Abnorm Lymph % (Manual) 0 % Nucleated RBC % Not Reportable Neutrophils # (Manual) 6.8 H (1.5-6.6) 10^3/uL Lymphocytes # (Manual) 1.0 L (1.5-3.5) 10^3/uL Monocytes # (Manual) 1.2 H (0.0-1.0) 10^3/uL Eosinophils # (Manual) 0.2 (0-0.7) 10^3/uL Basophils # (Manual) 0.0 (0-0.1) 10^3/uL Differential Comment MANUAL DIFFERENTIAL Manual Slide Review Indicated WBC Morphology NORMAL APPEARANCE (NORMAL) Platelet Estimate NORMAL (130-450,000) (NORMAL) Platelet Morphology NORMAL APPEARANCE (NORMAL) RBC Morph Micro Appear NORMAL APPEARANCE (NORMAL) Sodium 133 L (135-145) mmol/L Potassium 3.9 (3.5-5.0) mmol/L Chloride 97 L (101-111) mmol/L Carbon Dioxide 29 (21-32) mmol/L Anion Gap 7.0 (6-13) BUN 11 (6-20) mg/dL Creatinine 0.6 (0.4-1.0) mg/dL Estimated GFR (MDRD) 94 (>89) Glucose 116 H (70-100) mg/dL Calcium 8.4 L (8.5-10.3) mg/dL Urine Color YELLOW Urine Clarity CLEAR (CLEAR) Urine pH 7.0 (5.0-7.5) PH Ur Specific [place] 1.020 (1.002-1.030) Urine Protein NEGATIVE (NEGATIVE) mg/dL Urine Glucose (UA) NEGATIVE (NEGATIVE) mg/dL Urine Ketones TRACE (NEGATIVE) mg/dL Urine Occult Blood NEGATIVE (NEGATIVE) Urine Nitrite NEGATIVE (NEGATIVE) Urine Bilirubin NEGATIVE (NEGATIVE) Urine Urobilinogen 0.2 (NORMAL) (NORMAL) E.U./dL Ur Leukocyte Esterase NEGATIVE (NEGATIVE) Urine RBC 0-5 (0-5) /HPF Urine WBC 0-3 (0-5) /HPF Ur Squamous Epith Cells NONE SEEN (<= Few) Urine Bacteria Rare (None Seen) /HPF Urine Culture Comments NOT INDICATED - Diagnostic Imaging Diagnostic Imaging Results: positive: Final report reviewed Diagnostic Imaging Comments: Left Hip Xray 11/12/2018 after surgery: Placement of 3 screws across a left femoral neck fracture. Assessment/Plan - Problem List (1) Hip fracture, left Impression: s/p fall. fracture seen on xray. S/p Left mini open hip pinning yesterday, 11/12/[address] Juan Jose Wills. This morning she reports her pain is 9/10. She is slightly confused compared to yesterday. Plan: ortho is following pain control PT consult today -- she is toe-touch weightbearing left lower extremity. out of bed with assist full assistance and assistive device as necessary. incentive spirometer perioperative antibiotics and perioperative DVT prophylaxis per ortho Qualifiers: Encounter type: initial encounter Fracture type: closed Qualified Code(s): S72.002A - Fracture of unspecified part of neck of left femur, initial encounter for closed fracture (2) History of fall within past 90 days Impression: Patient with multiple stages of healing ecchymosis to her face and legs. She reports her last fall prior to the one requiring admission was two days ago. She does not remember the details of the falls, but reports that she does fall often. In reviewing records, she recently moved into [facility] from a stay at a SNF after hospitalization for a fall at the end of September 2018. Plan: PT consult Fall precautions (3) Hypothyroidism Plan: continue home dose of levothyroxine Qualifiers: Hypothyroidism type: acquired Qualified Code(s): E03.9 - Hypothyroidism, unspecified (4) Hypokalemia, resolved Impression: Potassium 3.4 on admission. This was repleted. Plan: potassium is 3.0 today
[2018-11-13] MEDS ORDERED: SODIUM CHLORIDE 0.9% 1,000 ML IV ONE (22:11)
[2018-11-14] MEDS: MORPHINE 2 MG/ML CARPUJECT IVP PRN (00:11)
[2018-11-14] MEDS: SODIUM CHLORIDE FLUSH 0.9% 10 ML SYRINGE IVP SCH ×8 (03:31→23:42)
[2018-11-14] MEDS: PHENAZOPYRIDINE 100 MG TABLET PO SCH ×3 (06:45→21:31)
[2018-11-14] MEDS: LEVOTHYROXINE 25 MCG TABLET PO SCH (06:46)
[2018-11-14] MEDS: SODIUM CHLORIDE 0.9% 1,000 ML IV SCH (08:29)
[2018-11-14] MEDS ORDERED: oxyCODONE 5 MG TABLET PO PRN (08:33)
[2018-11-14 08:37] LABS: CALCIUM 8.2 mg/dL (8.5-10.3); CREATININE 0.6 mg/dL (0.4-1.0); MAGNESIUM 1.9 mg/dL (1.7-2.8)
[2018-11-14 08:40] LABS: BASOPHILS % (AUTO) 0.1 %; EOSINOPHILS % (AUTO) 0.4 %; HGB - HEMOGLOBIN 12.2 g/dL (12.0-16.0); LYMPHOCYTES % (AUTO) 10.7 %; MEAN CORPUSCULAR HEMOGLOBIN 31.3 pg (27.0-31.0); MEAN CORPUSCULAR HGB CONC 33.9 g/dL (32.0-36.0); MEAN CORPUSCULAR VOLUME 92.3 fL (81.0-99.0); MEAN PLATELET VOLUME 8.3 fL (7.9-10.8); MONOCYTES % (AUTO) 26.3 %; NEUTROPHILS % (AUTO) 62.5 %; PLT - PLATELET COUNT 145 10^3/uL (130-450); RED BLOOD COUNT 3.89 10^6/uL (4.20-5.40); RED CELL DISTRIBUTION WIDTH 14.8 % (12.0-15.0); WHITE BLOOD COUNT 14.3 x10^3/uL (4.8-10.8)
[2018-11-14] MEDS: CHOLECALCIFEROL 1,000 UNIT TABLET PO SCH (08:41)
[2018-11-14] MEDS: MULTIVITAMIN TABLET PO SCH (08:41)
[2018-11-14] MEDS: POLYETHYLENE GLYCOL 3350 17 GM PACKET PO SCH (08:41)
[2018-11-14] MEDS: FAMOTIDINE 20 MG TABLET PO SCH ×2 (08:41→21:31)
[2018-11-14] MEDS: buPROPion SR 150 MG TABLET PO SCH ×2 (08:41→21:31)
[2018-11-14] MEDS: ASPIRIN 325 MG TABLET PO SCH (08:41)
[2018-11-14 08:43] LABS: ABNORMAL LYMPHS % (MANUAL) 0 %; BAND NEUTROPHILS % (MANUAL) 0 %
[2018-11-14 09:12] LABS: DIFFERENTIAL COMMENT MANUAL DIFFERENTIAL; LYMPHOCYTES # (MANUAL) 1.7 10^3/uL (1.5-3.5); LYMPHOCYTES % (MANUAL) 2 %; MONOCYTES # (MANUAL) 1.9 10^3/uL (0.0-1.0); NEUTROPHILS # (MANUAL) 10.7 10^3/uL (1.5-6.6); NEUTROPHILS % (MANUAL) 75 %
[2018-11-14] MEDS: SERTRALINE 25 MG TABLET PO SCH (10:36)
--- NOTE | 2018-11-14 10:53 | PROVIDER PROGRESS NOTE ---
Subjective - Prog Note Date Prog Note Date: 11/14/18 Prog Note Time: 08:30 - Subjective Subjective: Patient reports her pain is not controlled Her left leg hurts with any movement She is on RA. Without cough. WBC is 14.3 today. TMax 37.9C last 24 hours Current Medications - Current Medications Current Medications: Active Medications Acetaminophen (Tylenol) 650 mg PO Q6HR [facility] Aspirin (Genie) 325 mg PO DAILYWM [facility] Last Admin: 11/14/18 08:41 Dose: 325 mg Bupropion HCl (Wellbutrin Sr) 150 mg PO BID [facility] Last Admin: 11/14/18 08:41 Dose: 150 mg Cholecalciferol (Vitamin D3) 1,000 unit PO DAILY [facility] Last Admin: 11/14/18 08:41 Dose: 1,000 unit Docusate Sodium (Colace 100mg Capsule) 100 mg PO BID PRN PRN Reason: Constipation Famotidine (Pepcid) 20 mg PO BID [facility] Last Admin: 11/14/18 08:41 Dose: 20 mg Acetaminophen (Ofirmev) 100 mls @ 400 mls/hr IV Q6HR PRN PRN Reason: PAIN Stop: 11/14/18 11:59 Last Infusion: 11/14/18 09:50 Dose: Infused Sodium Chloride (Normal Saline 0.9%) 1,000 mls @ 50 mls/hr IV .Q20H [facility] Last Admin: 11/14/18 08:29 Dose: 50 mls/hr Levothyroxine Sodium (Synthroid) 50 mcg PO QDAC [facility] Last Admin: 11/14/18 06:46 Dose: 50 mcg Morphine Sulfate (Morphine (Carpuject)) 2 mg IVP Q2HR PRN PRN Reason: Pain 8 to 10 Last Admin: 11/14/18 00:11 Dose: 2 mg Multivitamins (Theragran) 1 tab PO DAILYWM [facility] Last Admin: 11/14/18 08:41 Dose: 1 tab Ondansetron HCl (Zofran Inj) 4 mg IVP Q6HR PRN PRN Reason: Nausea / Vomiting Ondansetron HCl (Zofran Odt) 4 mg TL Q6HR PRN PRN Reason: Nausea / Vomiting Last Admin: 11/12/18 10:47 Dose: 4 mg Ondansetron HCl (Zofran Inj) 4 mg IVP Q6HR PRN PRN Reason: Nausea / Vomiting Oxycodone HCl (Roxicodone) 5 mg PO Q4HR PRN PRN Reason: PAIN Phenazopyridine HCl (Pyridium) 100 mg PO TID [facility] Last Admin: 11/14/18 06:45 Dose: 100 mg Polyethylene Glycol (Miralax) 17 gm PO DAILY [facility] Last Admin: 11/14/18 08:41 Dose: 17 gm Prochlorperazine Edisylate (Compazine Inj) 10 mg IVP Q6HR PRN PRN Reason: Nausea / Vomiting Senna (Senokot) 17.2 mg PO DAILY PRN PRN Reason: Constipation Sertraline HCl (Zoloft) 25 mg PO DAILY [facility] Last Admin: 11/14/18 10:36 Dose: 25 mg Sodium Chloride (Normal Saline Flush 0.9%) 10 ml IVP PRN PRN PRN Reason: NEEDED PER PROVIDER ORDERS Sodium Chloride (Normal Saline Flush 0.9%) 10 ml IVP 0100,0900,1700 [facility] Last Admin: 11/14/18 08:42 Dose: Not Given Sodium Chloride (Normal Saline Flush 0.9%) 10 ml IVP 0100,0900,1700 [facility] Last Admin: 11/14/18 09:04 Dose: Not Given Sodium Chloride (Normal Saline Flush 0.9%) 10 ml IVP PRN PRN PRN Reason: NEEDED PER PROVIDER ORDERS Home Medications: Acetaminophen [Tylenol Extra Strength] 1,000 mg PO Q8HR PRN 08/14/18 Cholecalciferol (Vitamin D3) [Vitajoy Daily D] 1,000 unit PO DAILY 08/14/18 Multivitamin [Multiple Vitamins] 1 tab PO DAILY 08/14/18 Levothyroxine Sodium 50 mcg PO QDAC 08/15/18 Famotidine 20 mg PO BID 09/23/18 Polyethylene Glycol 3350 17 gm PO DAILY PRN 09/23/18 Senna [Senokot] 17.2 mg PO DAILY PRN 09/23/18 Bupropion HCl [Bupropion HCl Sr] 150 mg PO BID 11/12/18 Sertraline [Zoloft] 25 mg PO DAILY 11/12/18 Objective - Vital Signs/Intake & Output Reviewed Vital Signs: Yes Vital Signs: Vital Signs x48h Temp Pulse Resp BP BP Pulse Ox 11/14/18 10:29 143/101 H 11/14/18 08:00 37.2 C 79 18 155/59 H 99 Intake & Output: Intake & Output 11/11/18 11/12/18 11/13/18 11/14/18 23:59 23:59 23:59 23:59 Intake Total 1250 3909.333 1320 Output Total 1050 1300 950 Balance 200 2609.333 370 - Objective General Appearance: positive: No acute distress, Alert Eyes Bilateral: positive: Normal inspection, PERRL ENT: positive: Dry mucous membranes Neck: positive: Nml inspection, Trachea midline Respiratory: positive: No respiratory distress, Breath sounds nml (diminished in the bases) Cardiovascular: positive: Regular rate & rhythm. negative: No murmur, No gallop Peripheral Pulses: 1+ Dorsalis pedis (R), 1+ Dorsalis pedis (L) Abdomen: positive: Non-tender, No organomegaly, No distention Skin: positive: Warm, Dry, Other (multiple areas of hearling ecchymosis to face and left knee) Extremities: positive: Other (left hip hurts with any movement. able to move toes without pain) Neurologic/Psychiatric: positive: Oriented x3, CN's nml (2-12), Sensation nml, Weakness - Lab Results Fish Bones: 11/14/18 08:11 11/14/18 08:11 Other Labs: Lab Results x24hrs 11/14/18 11/14/18 Range/Units 08:11 08:11 WBC 14.3 H (4.8-10.8) x10^3/uL RBC 3.89 L (4.20-5.40) 10^6/uL Hgb 12.2 (12.0-16.0) g/dL Hct 35.9 L (37.0-47.0) % MCV 92.3 (81.0-99.0) fL MCH 31.3 H (27.0-31.0) pg MCHC 33.9 (32.0-36.0) g/dL RDW 14.8 (12.0-15.0) % Plt Count 145 (130-450) 10^3/uL MPV 8.3 (7.9-10.8) fL Neut # (Auto) Not Reportable Lymph # (Auto) Not Reportable [place] # (Auto) Not Reportable Eos # (Auto) Not Reportable Baso # (Auto) Not Reportable Absolute Nucleated RBC Not Reportable Total Counted 100 Band Neuts % (Manual) 0 (0 - 10) % Reactive Lymphs % (Man) 10 % Abnorm Lymph % (Manual) 0 % Nucleated RBC % Not Reportable Neutrophils # (Manual) 10.7 H (1.5-6.6) 10^3/uL Lymphocytes # (Manual) 1.7 (1.5-3.5) 10^3/uL Monocytes # (Manual) 1.9 H (0.0-1.0) 10^3/uL Eosinophils # (Manual) 0.0 (0-0.7) 10^3/uL Basophils # (Manual) 0.0 (0-0.1) 10^3/uL Differential Comment MANUAL DIFFERENTIAL Sodium 135 (135-145) mmol/L Potassium 3.6 (3.5-5.0) mmol/L Chloride 102 (101-111) mmol/L Carbon Dioxide 25 (21-32) mmol/L Anion Gap 8.0 (6-13) BUN 9 (6-20) mg/dL Creatinine 0.6 (0.4-1.0) mg/dL Estimated GFR (MDRD) 94 (>89) Glucose 114 H (70-100) mg/dL Calcium 8.2 L (8.5-10.3) mg/dL Magnesium 1.9 (1.7-2.8) mg/dL Assessment/Plan - Problem List (1) Hip fracture, left Impression: (1) Hip fracture, left Impression: s/p fall. fracture seen on xray. S/p Left mini open hip pinning 11/12/[address] Juan Jose Wills. Her pain is still uncontrolled. Plan: ortho is following pain control -- will add scheduled tylenol and PRN oxycodone in addition to IV pain medications PT following -- she is toe-touch weightbearing left lower extremity. out of bed with assist full assistance and assistive device as necessary. incentive spirometer perioperative antibiotics and perioperative DVT prophylaxis per ortho Qualifiers: Encounter type: initial encounter Fracture type: closed Qualified Code(s): S72.002A - Fracture of unspecified part of neck of left femur, initial encounter for closed fracture (2) Leukocytosis Impression: Patient with Tmax 37.9C last 24 hours. Her WBC count is 14.3 today. Urinalysis yesterday negative for infection. She was on 3L NC last night. Surgical site with c/d/i dressing. Plan: obtain CXR to eval for pneumonia/atelectasis follow-up CBC tomorrow (3) History of fall within past 90 days Impression: Patient with multiple stages of healing ecchymosis to her face and legs. She reports her last fall prior to the one requiring admission was two days ago. She does not remember the details of the falls, but reports that she does fall often. In reviewing records, she recently moved into [facility] from a stay at a SNF after hospitalization for a fall at the end of September 2018. Plan: PT consult Fall precautions (4) Hypothyroidism Plan: continue home dose of levothyroxine Qualifiers: Hypothyroidism type: acquired Qualified Code(s): E03.9 - Hypothyroidism, unspecified
--- NOTE | 2018-11-14 12:53 | XRAY Report ---
Reason: eval for elevated WBC and low grade temp Procedure Date: 11/14/2018 Accession Number: [id number] / [id number] Procedure: XR - Chest 1 View X-Ray CPT Code: 45145 FULL RESULT: EXAM: CHEST RADIOGRAPHY EXAM DATE: 11/14/2018 11:45 AM. CLINICAL HISTORY: Elevated white blood cell count. Low-grade temperature. COMPARISON: CHEST 1 VIEW 11/12/2018 7:17 AM. TECHNIQUE: 1 view. FINDINGS: Lungs/Pleura: Interstitium is prominent as before. Slight bronchial thickening. Minimal basilar opacities. No pneumothorax. Mediastinum: Heart size upper normal. Aorta is tortuous. Other: Healed left-sided rib fractures. IMPRESSION: 1. Bronchial thickening with minimal basilar opacities possibly bronchitis, early consolidation, in part scarring versus chronic parenchymal changes. RADIA
[2018-11-14] MEDS: ACETAMINOPHEN 325 MG TABLET PO SCH ×2 (13:08→18:00)
--- NOTE | 2018-11-14 14:57 | PROVIDER PROGRESS NOTE ---
Subjective - Prog Note Date Prog Note Date: 11/14/18 - Subjective Subjective: Patient says she is doing okay. She says her hip is comfortable if she does not move though she tries to move she says it is painful. She says she did not get out of bed with physical therapy because her hip hurt. She points to the left groin as the location of that. Objective - Vital Signs/Intake & Output Vital Signs: Vital Signs x48h Temp Pulse Resp BP BP Pulse Ox 11/14/18 11:59 36.9 C 70 18 138/60 H 92 11/14/18 10:29 143/101 H 11/14/18 08:00 37.2 C 79 18 155/59 H 99 Intake & Output: Intake & Output 11/11/18 11/12/18 11/13/18 11/14/18 23:59 23:59 23:59 23:59 Intake Total 1250 3909.333 1790 Output Total 1050 1300 950 Balance 200 2609.333 840 - Lab Results Fish Bones: 11/14/18 08:11 11/14/18 08:11 Other Labs: Lab Results x24hrs 11/14/18 11/14/18 Range/Units 08:11 08:11 WBC 14.3 H (4.8-10.8) x10^3/uL RBC 3.89 L (4.20-5.40) 10^6/uL Hgb 12.2 (12.0-16.0) g/dL Hct 35.9 L (37.0-47.0) % MCV 92.3 (81.0-99.0) fL MCH 31.3 H (27.0-31.0) pg MCHC 33.9 (32.0-36.0) g/dL RDW 14.8 (12.0-15.0) % Plt Count 145 (130-450) 10^3/uL MPV 8.3 (7.9-10.8) fL Neut # (Auto) Not Reportable Lymph # (Auto) Not Reportable [place] # (Auto) Not Reportable Eos # (Auto) Not Reportable Baso # (Auto) Not Reportable Absolute Nucleated RBC Not Reportable Total Counted 100 Band Neuts % (Manual) 0 (0 - 10) % Reactive Lymphs % (Man) 10 % Abnorm Lymph % (Manual) 0 % Nucleated RBC % Not Reportable Neutrophils # (Manual) 10.7 H (1.5-6.6) 10^3/uL Lymphocytes # (Manual) 1.7 (1.5-3.5) 10^3/uL Monocytes # (Manual) 1.9 H (0.0-1.0) 10^3/uL Eosinophils # (Manual) 0.0 (0-0.7) 10^3/uL Basophils # (Manual) 0.0 (0-0.1) 10^3/uL Differential Comment MANUAL DIFFERENTIAL Sodium 135 (135-145) mmol/L Potassium 3.6 (3.5-5.0) mmol/L Chloride 102 (101-111) mmol/L Carbon Dioxide 25 (21-32) mmol/L Anion Gap 8.0 (6-13) BUN 9 (6-20) mg/dL Creatinine 0.6 (0.4-1.0) mg/dL Estimated GFR (MDRD) 94 (>89) Glucose 114 H (70-100) mg/dL Calcium 8.2 L (8.5-10.3) mg/dL Magnesium 1.9 (1.7-2.8) mg/dL - Other Results/Comments Other Results/Comments: Left lower extremity remains neurovascular unchanged distally calf is soft nontender bilaterally. SCD boots/foot pumps in place. Patient's left hip dressing clean dry and intact no significant erythema or streaking appreciated. She has mild tenderness around the incision but there is no erythema no sign ificant swelling in the compartments of the thigh are soft. No pain with gentle logrolling with distraction. Pain is reported with attempted patient active motion left lower extremity. Assessment/Plan - Problem List (1) Hip fracture, left Impression: Patient is orthopedically stable postoperative day #2 status post left hip mini open pinning. No signs or symptoms of infection or DVT are noted. Recommend continued analgesics as necessary. She is toe-touch weightbearing left lower extremity with full assistance and assistive device as necessary. Recommend continued DVT prophylaxis mechanical and chemical. Recommend incentive spirometer every hour when awake. Recommend decubitus precautions. Patient may continue with SNF placement and may discharge when bed available and okay from hospitalist/medical perspective. Patient may follow-up 10-14 days orthopedic clinic for staple removal and reexamination and may notify sooner should problems questions or worsening of her condition arise. Qualifiers: Encounter type: subsequent encounter Fracture type: closed Fracture healing: with routine healing Qualified Code(s): S72.002D - Fracture of unspecified part of neck of left femur, subsequent encounter for closed fracture with routine healing
[2018-11-14] MEDS: DOCUSATE SODIUM 100 MG CAPSULE PO PRN (15:37)
[2018-11-14] MEDS ORDERED: BENZOCAINE/MENTHOL LOZENGE MM PRN (17:30)
[2018-11-15] MEDS: ACETAMINOPHEN 325 MG TABLET PO SCH ×3 (01:10→11:29)
[2018-11-15] MEDS: SODIUM CHLORIDE 0.9% 1,000 ML IV SCH (04:38)
[2018-11-15] MEDS: PHENAZOPYRIDINE 100 MG TABLET PO SCH (06:45)
[2018-11-15] MEDS: LEVOTHYROXINE 25 MCG TABLET PO SCH (06:46)
[2018-11-15 07:40] LABS: BASOPHILS # (AUTO) 0.1 10^3/uL (0.0-0.1); BASOPHILS % (AUTO) 0.6 %; EOSINOPHILS # (AUTO) 0.1 10^3/uL (0.0-0.7); EOSINOPHILS % (AUTO) 0.4 %; HGB - HEMOGLOBIN 11.8 g/dL (12.0-16.0); LYMPHOCYTES # (AUTO) 1.4 10^3/uL (1.5-3.5); MEAN CORPUSCULAR HEMOGLOBIN 31.7 pg (27.0-31.0); MEAN CORPUSCULAR HGB CONC 34.3 g/dL (32.0-36.0); MEAN CORPUSCULAR VOLUME 92.4 fL (81.0-99.0); MEAN PLATELET VOLUME 7.8 fL (7.9-10.8); MONOCYTES # (AUTO) 3.1 10^3/uL (0.0-1.0); MONOCYTES % (AUTO) 23.8 %; NEUTROPHILS # (AUTO) 8.4 10^3/uL (1.5-6.6); NEUTROPHILS % (AUTO) 64.2 %; PLT - PLATELET COUNT 137 10^3/uL (130-450); RED BLOOD COUNT 3.71 10^6/uL (4.20-5.40); RED CELL DISTRIBUTION WIDTH 14.7 % (12.0-15.0)
[2018-11-15 07:55] VITALS: BP 156/69
[2018-11-15 07:57] LABS: CALCIUM 8.2 mg/dL (8.5-10.3); CREATININE 0.6 mg/dL (0.4-1.0)
[2018-11-15 08:14] LABS: DIFFERENTIAL COMMENT MANUAL=AUTO DIFF
[2018-11-15] MEDS ORDERED: POTASSIUM CHLORIDE 20 MEQ TABLET PO ONE (08:16)
[2018-11-15] MEDS: POLYETHYLENE GLYCOL 3350 17 GM PACKET PO SCH (08:52)
[2018-11-15] MEDS: FAMOTIDINE 20 MG TABLET PO SCH (08:52)
[2018-11-15] MEDS: DOCUSATE SODIUM 100 MG CAPSULE PO PRN (08:52)
[2018-11-15] MEDS: ASPIRIN 325 MG TABLET PO SCH (08:53)
[2018-11-15] MEDS: MULTIVITAMIN TABLET PO SCH (08:53)
[2018-11-15] MEDS: SODIUM CHLORIDE FLUSH 0.9% 10 ML SYRINGE IVP SCH ×2 (08:53)
[2018-11-15] MEDS: CHOLECALCIFEROL 1,000 UNIT TABLET PO SCH (08:53)
[2018-11-15] MEDS: buPROPion SR 150 MG TABLET PO SCH (08:53)
--- NOTE | 2018-11-15 08:58 | Discharge Plan ---
"Discharge Plan for SNF / [facility] - Discharge Plan And Transition Orders Disposition: 03 SNF DC/Xfer Condition: Stable Allergies and Adverse Reactions: Allergies Allergy/AdvReac Type Severity Reaction Status Date / Time Penicillins Allergy Intermediate swelling Verified 11/05/18 19:08 phenytoin Allergy Unknown Verified 11/05/18 19:08 wheat AdvReac Intermediate malaise, Verified 11/05/18 19:08 headache, dizziness - SNF / INTERMEDIATE Transition Orders Admit to (Facility): [facility] Discharge Diagnosis: Left supcapital femoral neck fracture Medicare Certification Statement: I certify that Post Hospital shelter care is medically necessary on a continuing basis for any of the conditions for which she/he is receiving care during hospitalization. Notify PCP of admission and forward orders to primary provider for signature. Weight on admission and: Weekly Other Notification Orders: Call PCP immediately if patient develops dyspnea, chest pain/tightness or edema. House Bowel Program: Yes Additional Bowel Program Orders: If no BM after 2 days, nurse may give M.O.M. 30ml PO PRN and/or ducolax Supp 1 NC and/or WILBER 250mg P.O., and/or senna 1-2 tabs PO. On day 3 nurse may give repeat above order until residents constipation is resolved. Treatments & Other Orders: BELINDA hose daily, remove at night. Incentive spirometer 10x every hour while awake. Oxygen Orders: Oxygen as needed to keep oxygen saturation above 92% Lab Tests or X-ray Orders: Follow-up CBC and BMP in 2-3 days of admission Orthopedic Orders: toe-touch weightbearing left lower extremity with full assistance and assistive device as necessary for 6 weeks after surgery Medication Orders: PLEASE REFER TO THE DISCHARGE MEDICATION LIST. Insulin Orders?: No - Medications New Prescriptions: oxyCODONE [Roxicodone] 5 mg PO Q4HR PRN #30 tablet PRN Reason: Pain Alendronate [Fosamax] 70 mg PO Q7D #7 tablet - Diet Texture: Regular Liquids: Thin May have monthly special meal: Yes - Therapies | Activity Therapy: Evaluation | Treat if indicated: PT, OT Rehabilitation Potential: Maximize functional status, Return to independent living, Maintain present ADL Functional Activity: Activity as Tolerated Weight Bearing: Toe Touch Extremities: [id number] Assistance Devices: Walker Follow Up: Follow-up 10-14 days orthopedic clinic with Dr. Juan Jose Wills for staple removal and reexamination and may notify sooner should problems questions or worsening of her condition arise."
--- NOTE | 2018-11-15 08:58 | DISCHARGE SUMMARY ---
"Discharge Summary Admit Date: 11/12/18 Discharge Date: 11/15/18 Discharging Provider: Carolina QUIÑONES Primary Care Provider: Dr. Zeyad Ayoub Code Status: Do Not Attempt Resuscitation Condition at Discharge: Stable Discharge Disposition: 03 SNF DC/Xfer Discharge [facility] - DIAGNOSES Admission Diagnoses: Hip fracture, left History of fall within past 90 days Hypokalemia Hypothyroidism Discharge Diagnoses with Status of Each Condition: Hip fracture, left, resolved Leukocytosis, improved History of fall within past 90 days, stable Hypothyroidism, stable - HPI History of Present Illness: Ms. Nair is an 88 year old female with a past medical history significant for hypothyroidism and frequent falls. She ambulates with a walker. Her last fall was 2 days ago and she reports she was seen in the ER. She currently resides at [facility], moving in roughly 2-3 weeks ago. Prior to that she was living at home. Patient presented to [facility] ER after sustaining a fall overnight. She reports getting up to go to the bathroom in the middle of the night without assistance. While sitting on the toilet she felt dizzy and fell over. This was an unwitnessed fall. She reports that she hit her head 'alittle bit', but doesnt remember what she hit it on. Denies losing consciousness. After the fall, she had excruciating left hip pain and presented to the ER. Imaging in the ER confirmed that she had a left cubcapital femur fracture. Orthopedic surgery was consulted and she was admitted to the hospitalist service. She will undergo surgical intervention today. - CONSULTS | PROCEDURES Consultations: Dr. Juan Jose Wills, orthopedic surgery Procedures: Left hip mini open screw fixation/pinning 11/12/[address] Juan Jose Wills - HOSPITAL COURSE Hospital Course: Ammy was admitted to the hospital for a left hip fracture after sustaining a fall at home. She has a history of falls, most recent one 2 days ago, and currently lives at [facility] after spending time at a SNF recently. She underwent left mini open hip pinning 11/12/[address] Juan Jose Wills. Physical therapy was consulted. She will be toe-touch weight-bearing left lower extremity for 6 weeks after surgery. She still endorses significant pain and anxiety related to moving her left leg and getting out of bed, however, it improves every day. On the day of discharge, she sat on the bedside commode and in a chair. An osteoporosis consult was placed and she is being discharged on fosamax 70 mg q7days. She should continue to use her incentive spirometer. Her WBC count elevated to 14.3 11/14/2018. She was afebrile. She complained of urinary frequency and a UA was obtained. It was negative for infection. She was given pyridium. She was on 3L postoperatively, so a CXR was obtained. It was negative for infection. Her surgical dressing is w/o evidence of infection. Fo llow-up CBC on the day of discharge was 13.0. She is maintaining oxygen saturations >92% on room air. Recommend follow-up of WBC in 2-3 days. She was continued on her home dose of levothyroxine. She is discharging today to [facility] for continued rehab after her hip surgery. - ALLERGIES Allergies/Adverse Reactions: Allergies Allergy/AdvReac Type Severity Reaction Status Date / Time Penicillins Allergy Intermediate swelling Verified 11/05/18 19:08 phenytoin Allergy Unknown Verified 11/05/18 19:08 wheat AdvReac Intermediate malaise, Verified 11/05/18 19:08 headache, dizziness - MEDICATIONS Home Medications: Ambulatory Orders Medication Instructions Recorded Confirmed Cholecalciferol (Vitamin D3) 1,000 unit PO DAILY 08/14/18 11/12/18 [Vitajoy Daily D] Multivitamin [Multiple Vitamins] 1 tab PO DAILY 08/14/18 11/12/18 Levothyroxine Sodium 50 mcg PO QDAC 08/15/18 11/12/18 Famotidine 20 mg PO BID 09/23/18 11/12/18 Polyethylene Glycol 3350 17 gm PO DAILY PRN 09/23/18 11/12/18 Senna [Senokot] 17.2 mg PO DAILY PRN 09/23/18 11/12/18 Bupropion HCl [Bupropion HCl Sr] 150 mg PO BID 11/12/18 11/12/18 Sertraline [Zoloft] 25 mg PO DAILY 11/12/18 11/12/18 Acetaminophen [Tylenol] 650 mg PO Q6HR tablet 11/15/18 Alendronate [Fosamax] 70 mg PO Q7D #7 tablet 11/15/18 Aspirin [Genie] 325 mg PO DAILYWM tablet 11/15/18 Ondansetron Odt [Zofran Odt] 4 mg TL Q6HR PRN tablet 11/15/18 Phenazopyridine [Pyridium] 100 mg PO TID 2 Days tablet 11/15/18 Polyethylene Glycol 3350 [Miralax] 17 gm PO DAILY packet 11/15/18 oxyCODONE [Roxicodone] 5 mg PO Q4HR PRN #30 tablet 11/15/18 - PHYSICAL EXAM AT DISCHARGE General Appearance: positive: No acute distress, Alert Eyes Bilateral: positive: Normal inspection, PERRL, EOMI ENT: positive: No signs of dehydration Neck: positive: Nml inspection, Trachea midline Respiratory: positive: Chest non-tender, No respiratory distress, Breath sounds nml (moist cough, nonproductive. On room air) Cardiovascular: positive: Regular rate & rhythm. negative: No murmur, No gallop, Tachycardia Peripheral Pulses: positive: 1+ Abdomen: positive: Non-tender, Nml bowel sounds. negative: Tenderness, Guarding, Rebound Skin: positive: Warm, Dry, Other (ecchymosis to face and left knee in various stages of healing) Extremities: positive: Full ROM (left hip ROM limited secondary to pain), No pedal edema, Other (left hip tender to touch). negative: Calf tenderness Neurologic/Psychiatric: positive: Oriented x3, CN's nml (2-12), Sensation nml, Mood/affect nml, Weakness - LABS Result Diagrams: 11/15/18 07:37 11/15/18 07:37 - DIAGNOSTIC IMAGING Diagnostic Imaging Results: Final report reviewed Diagnostic Imaging Results Comments: 2-view Left Hip with Pelvis XRay 11/12/2018 -- mild impacted and mild to moderate dorsal angulated subcapital fracture of the left femur. There are three screws utilized for fixation of a prior subcapital right femoral fracture. 1-view CXR 11/12/2018 -- No acute abnormality seen in the chest 1-view Left Hip with Pelvis Xray 11/12/2018 -- Placement of three screws across a left femoral neck fracture 1-view CXR 11/14/2018 -- bronchial thickening with minimal basilar opacities poss ibly bronchitis, early consolidation, in part scarring versus chronic parenchymal changes - FOLLOW UP Follow Up: Follow-up on her CBC and WBC within 2-3 days of arrival to [facility] Follow-up 10-14 days orthopedic clinic (Dr. Juan Jose Wills) for staple removal and reexamination and may notify sooner should problems questions or worsening of her condition arise. - TIME SPENT Time Spent in Discharge (Minutes): 45"
[2018-11-15] MEDS: SERTRALINE 25 MG TABLET PO SCH (08:59)
== END 2018-11-15 12:00 | DRG 482 ==
LOC: EDUNIT# → ED 04:52 → MS2 07:07
PROVIDERS: ADMIT Specialist; ATTEND Nurse Practitioner
PROC: 0QH704Z Insertion of Internal Fixation Device into Left Upper Femur, Open Approach (ICD-10-PCS; principal; 2018-11-12 14:00)
DX: S72.002A Fracture of unspecified part of neck of left femur, initial encounter for closed fracture (principal); W19.XXXA Unspecified fall, initial encounter; S72.012A Unspecified intracapsular fracture of left femur, initial encounter for closed fracture; W18.12XA Fall from or off toilet with subsequent striking against object, initial encounter; Z91.81 History of falling; E03.9 Hypothyroidism, unspecified; Z86.11 Personal history of tuberculosis; R32 Unspecified urinary incontinence; F32.9 Major depressive disorder, single episode, unspecified; M19.90 Unspecified osteoarthritis, unspecified site; G89.29 Other chronic pain; M54.9 Dorsalgia, unspecified; Z90.49 Acquired absence of other specified parts of digestive tract; Z96.659 Presence of unspecified artificial knee joint; Z88.0 Allergy status to penicillin; Z91.018 Allergy to other foods; D72.829 Elevated white blood cell count, unspecified; Z66 Do not resuscitate; F41.9 Anxiety disorder, unspecified; E87.6 Hypokalemia; R41.0 Disorientation, unspecified; M21.051 Valgus deformity, not elsewhere classified, right hip
CPT/HCPCS: 36415; 71045; 80048; 81001; 81003; 83735; 85025; 85610; 85730; 87086; 93005; 96374; 99284

== ENCOUNTER 2018-11-15 12:05 | Outpatient (CLI) | payer MEDICARE, OTHER | END 2018-11-15 12:06 | LOC: EMS 12:05 | PROVIDERS: ATTEND Surgery | DX: S72.002A Fracture of unspecified part of neck of left femur, initial encounter for closed fracture (principal) | CPT/HCPCS: A0425; A0428 ==

== ENCOUNTER 2019-01-30 12:16 | Outpatient (CLI) | payer MEDICARE, OTHER ==
--- NOTE | 2019-01-30 13:11 | CT Report ---
Reason: FRACTURE OF UNSPECIFIED PART OF NECK OF LEFT FEMUR Procedure Date: 01/30/2019 Accession Number: [id number] / [id number] Procedure: CT - LOWER EXTREMITY WO - LT CPT Code: FULL RESULT: EXAM: LEFT HIP CT WITHOUT CONTRAST EXAM DATE: 01/30/2019 12:48 PM. CLINICAL HISTORY: Fracture of unspecified part of neck of left femur. COMPARISON: HIP 2 VIEW LT 01/30/2019 11:31 AM. HIP 2 VIEW LT 01/05/2019 2:20 PM. HIP 2 VIEW LT 11/24/2018 2:46 PM. HIP W/PELVIS 2-3V LT 11/12/2018 5:20 AM. TECHNIQUE: Thin-section axial images were acquired of the hip without contrast. Post-processing: Coronal and sagittal reformats. Other: None. In accordance with CT protocol optimization, one or more of the following dose reduction techniques were utilized for this exam: automated exposure control, adjustment of mA and/or KV based on patient size, or use of iterative reconstructive technique. FINDINGS: Bones: Since the comparison studies noted above, no change in appearance of the subcapital left femoral neck fracture which has been fixed in place with 3 cannulated screws. No new changes. No new fractures. On the right side, 3 cannulated screws also transfix a well-healed femoral neck fracture. The SI joints, sacrum, pubic symphysis appear unremarkable. Joints: The visualized hip joint spaces are narrow. No calcified loose bodies. No large effusions. The other visualized joint spaces are normal. Musculature: Moderate fatty atrophy is seen in the surrounding muscles of the hip. Other: The visualized intraperitoneal structures are unremarkable. IMPRESSION: 1. Since the comparison studies, no change in appearance of the recently fixed subcapital left femoral neck fracture. No change in position of fracture fragments, no new fractures. RADIA
== END 2019-01-30 12:17 | disposition home or self-care (01) ==
LOC: DI 12:16
PROVIDERS: ATTEND Orthopaedic Surgery Sports Medicine
DX: S72.012D Unspecified intracapsular fracture of left femur, subsequent encounter for closed fracture with routine healing (principal)

== ENCOUNTER 2019-06-12 17:08 | Outpatient (CLI) | payer MEDICARE, OTHER | END 2019-06-12 17:09 | disposition critical access hospital (66) | LOC: EMS 17:08 | PROVIDERS: ATTEND Surgery | DX: S61.212A Laceration without foreign body of right middle finger without damage to nail, initial encounter (principal); W45.8XXA Other foreign body or object entering through skin, initial encounter; Y92.099 Unspecified place in other non-institutional residence as the place of occurrence of the external cause | CPT/HCPCS: A0425; A0429 ==

== ENCOUNTER 2019-06-12 17:37 | Emergency (ER) | payer MEDICARE, OTHER ==
--- NOTE | 2019-06-12 19:08 | ED Physician Documentation ---
History of Present Illness - Stated complaint Stated Complaint: R FINGER LAC - Chief complaint Chief Complaint: Laceration - History obtained from History obtained from: Patient, Caregiver - History of Present Illness Timing: How many hours ago (2) Pain level max: 1 Pain level now: 1 - Additonal information Additional information: 88-year-old female presents to the emergency department with a right middle finger laceration from her thumbnail. She states she had trouble getting it to stop bleeding at home. Tetanus up-to-date. Better with pressure, worse with movement Review of Systems Neurologic: denies: Focal weakness, Numbness PD PAST MEDICAL HISTORY - Past Medical History Cardiovascular: None Respiratory: Tuberculosis Neuro: CVA Endocrine/Autoimmune: HyPOthyroidism GI: Other : Incontinence HEENT: Other Psych: Depression, Anxiety Musculoskeletal: Osteoarthritis, Chronic back pain Derm: Other - Past Surgical History Past Surgical History: Yes General: Appendectomy, Bowel surgery Ortho: Knee replacement HEENT: Cataracts, Tonsil/Adenoidectomy - Present Medications Home Medications: Ambulatory Orders Medication Instructions Recorded Confirmed Cholecalciferol (Vitamin D3) 1,000 unit PO DAILY 08/14/18 11/12/18 [Vitajoy Daily D] Multivitamin [Multiple Vitamins] 1 tab PO DAILY 08/14/18 11/12/18 Levothyroxine Sodium 50 mcg PO QDAC 08/15/18 11/12/18 Famotidine 20 mg PO BID 09/23/18 11/12/18 Polyethylene Glycol 3350 17 gm PO DAILY PRN 09/23/18 11/12/18 Senna [Senokot] 17.2 mg PO DAILY PRN 09/23/18 11/12/18 Bupropion HCl [Bupropion HCl Sr] 150 mg PO BID 11/12/18 11/12/18 Sertraline [Zoloft] 25 mg PO DAILY 11/12/18 11/12/18 Acetaminophen [Tylenol] 650 mg PO Q6HR tablet 11/15/18 Alendronate [Fosamax] 70 mg PO Q7D #7 tablet 11/15/18 Aspirin [Genie] 325 mg PO DAILYWM tablet 11/15/18 Ondansetron Odt [Zofran Odt] 4 mg TL Q6HR PRN tablet 11/15/18 Phenazopyridine [Pyridium] 100 mg PO TID 2 Days tablet 11/15/18 Polyethylene Glycol 3350 [Miralax] 17 gm PO DAILY packet 11/15/18 oxyCODONE [Roxicodone] 5 mg PO Q4HR PRN #30 tablet 11/15/18 - Allergies Allergies/Adverse Reactions: Allergies Allergy/AdvReac Type Severity Reaction Status Date / Time Penicillins Allergy Intermediate swelling Verified 11/05/18 19:08 phenytoin Allergy Unknown Verified 11/05/18 19:08 wheat AdvReac Intermediate malaise, Verified 11/05/18 19:08 headache, dizziness - Social History Does the pt smoke?: No Smoking Status: Never smoker Does the pt drink ETOH?: Yes Does the pt have substance abuse?: No - Immunizations Immunizations are current?: Yes - POLST Patient has POLST: Yes POLST Status: DNR PD ED PE NORMAL - Vitals Vital signs reviewed: Yes - General General: Alert and oriented X 3, No acute distress - Extremities Extremities: Other (R 3rd finger, small skin tear to the pad of the finger. No active bleeding.) - Neuro Neuro: Alert and oriented X 3 Results - Vitals Vitals: Oxygen O2 Source [With Activity] Room air O2 Source [Without Activity] Nasal cannula O2 Source Room air Procedures - Laceration (location) R 3rd digit Length in cm: 0.5 Wound type: Flap, Clean Neurovascular status: Sensory intact, Motor intact, Vascular intact Tendon involvement: Tendon intact Wound Preparation: Irrigated copiously NS Skin layer closure: Dermabond Other: Patient tolerated well, No complications, Neurovascular intact, Tetanus UTD Complexity: Simple PD MEDICAL DECISION MAKING - ED course Complexity details: considered differential, d/w patient ED course: Small skin avulsion. Dermabond applied. Tolerated well. The skin is too thin to hold a stitch adequately. Warnings of infection and instructions on wound care given at bedside. Also counseled on how to minimize scarring. Patient counseled regarding signs and symptoms for which I believe and urgent re- evaluation would be necessary. Patient with good understanding of and agreement to plan and is comfortable going home at this time This document was made in part using voice recognition software. While efforts are made to proofread this document, sound alike and grammatical errors may occur. Departure - Departure Disposition: 01 Home, Self Care Clinical Impression: Finger laceration Qualifiers: Encounter type: initial encounter Finger: middle finger Damage to nail status: without damage Foreign body presence: without foreign body Laterality: right Qualified Code(s): S61.212A - Laceration without foreign body of right middle finger without damage to nail, initial encounter Condition: Good Instructions: ED Laceration Hand Follow-Up: your,doctor as needed. [Other] Comments: Keep the wound clean. Return if you worsen. Return if you notice redness swelling or drainage from the wound. Discharge Date/Time: 06/12/19 19:13
[2019-06-12 19:15] VITALS: BP 154/66
== END 2019-06-12 19:13 | disposition home or self-care (01) ==
LOC: EDUNIT# → ED 17:37
DX: S61.212A Laceration without foreign body of right middle finger without damage to nail, initial encounter (principal); W45.8XXA Other foreign body or object entering through skin, initial encounter; Y93.89 Activity, other specified; Z79.82 Long term (current) use of aspirin
CPT/HCPCS: 12001; 12011; 99283

== ENCOUNTER 2019-07-17 10:28 | Outpatient (CLI) | payer MEDICARE, OTHER ==
--- NOTE | 2019-07-17 14:26 | XRAY Report ---
Reason: LEFT HIP PAIN Procedure Date: 07/17/2019 Accession Number: [id number] / [id number] Procedure: XRS - Hips 2V BILAT CPT Code: FULL RESULT: EXAM: BILATERAL HIP RADIOGRAPHY EXAM DATE: 07/17/2019 10:52 AM. CLINICAL HISTORY: Left hip pain. COMPARISON: HIP 2 VIEW LT 03/07/2019 11:36 AM HIP 2 VIEW LT 01/30/2019 11:31 AM ABDOMEN/PELVIS W/ 09/07/2015 4:11 PM. TECHNIQUE: 2 views each. FINDINGS: Bones: Normal. No fractures or bone lesion. Right Hip: Redemonstration of three partially threaded cannulated screws traversing the femoral neck, unchanged in position when accounting for differences in technique. No fracture or dislocation. Joint space loss, moderate to severe. Left Hip: Redemonstration of three partially threaded cannulated femoral neck screws with impacted femoral neck fracture, unchanged appearance. Moderate to severe hip joint space loss. No new fracture or dislocation. Soft Tissues: Normal. No soft tissue swelling. IMPRESSION: Radiographically unchanged appearance of the left hip with degenerative changes and previously fixated left femoral neck fracture. RADIA
== END 2019-07-17 10:29 | disposition home or self-care (01) ==
LOC: DI.S 10:28
PROVIDERS: ATTEND Family Medicine
DX: M16.0 Bilateral primary osteoarthritis of hip (principal)
CPT/HCPCS: 73521